=== PATIENT | male | born 1940 | race Caucasian/White ===

== ENCOUNTER 2019-12-27 07:28 | Outpatient (REF) | payer MEDICARE, SELFPAY ==
[2019-12-27 07:58] LABS: MANUAL DIFF FLAG NO
[2019-12-27 08:08] LABS: Basophils Percent Auto 0.3 % (0-2); Eosinophils Absolute Auto 0.3 X10*3/uL (0.0-0.4); Eosinophils Percent Auto 3.1 % (0-4); Hematocrit 38.4 % (42-52); Hemoglobin 12.8 g/dl (14.0-18.0); Imm Gran Abs Auto 0.04 X10*3/uL (0.00-0.03); Imm Gran Pct Auto 0.4 % (0.0-0.4); Lymphocytes Percent Auto 20.9 % (20-40); Mean Corpuscular HGB Conc 33.3 g/dl (31.0-36.0); Mean Corpuscular Hemoglobin 31.6 pg (27.0-33.0); Mean Corpuscular Volume 94.8 fL (80-98); Monocytes Absolute Auto 1.1 X10*3/uL (0.1-1.2); Monocytes Percent Auto 12.1 % (2-11); Neutrophils Percent Auto 63.2 % (45-73); Platelet Count 283 X10*3/uL (160-400); Red Blood Count 4.05 X10*6/uL (4.60-5.80); Red Cell Distribution Width 13.2 % (11.0-16.0); White Blood Count 9.4 X10*3/uL (4.8-10.8)
[2019-12-27 08:32] LABS: Alanine Aminotransferase 21 U/L (0-40); Albumin Level 4.5 g/dL (3.5-5.0); Alkaline Phosphatase 78 U/L (39-117); Anion Gap 11 (12-20); Aspartate Amino Transferase 18 U/L (5-37); Bilirubin Total 0.5 mg/dL (0.0-1.0); Blood Urea Nitrogen 19 mg/dL (9-16); Calcium 9.7 mg/dL (8.4-10.2); Carbon Dioxide 26 mmol/L (22-29); Chloride 106 mmol/L (96-108); Estimated Glomerular Filt Rate > 60; Glucose Fasting 99 mg/dL (60-99); Potassium 5.1 mmol/l (3.3-5.1); Sodium 138 mmol/L (135-145); Total Protein 6.8 g/dL (6.5-8.0)
== END 2019-12-27 07:29 | disposition home or self-care (01) ==
LOC: HO.LAB 07:28
PROVIDERS: PCP Internal Medicine; Visit Provider Internal Medicine
DX: I10 Essential (primary) hypertension (principal)
CPT/HCPCS: 36415; 80053; 85025

== ENCOUNTER 2020-01-10 07:59 | Outpatient (REF) | payer MEDICARE, SELFPAY ==
[2020-01-10 09:14] LABS: MANUAL DIFF FLAG NO
[2020-01-10 09:18] LABS: Basophils Percent Auto 0.3 % (0-2); Eosinophils Absolute Auto 0.3 X10*3/uL (0.0-0.4); Eosinophils Percent Auto 4.3 % (0-4); Hematocrit 37.3 % (42-52); Hemoglobin 12.7 g/dl (14.0-18.0); Imm Gran Abs Auto 0.02 X10*3/uL (0.00-0.03); Imm Gran Pct Auto 0.3 % (0.0-0.4); Lymphocytes Absolute Auto 1.5 X10*3/uL (1.2-4.9); Lymphocytes Percent Auto 24.1 % (20-40); Mean Corpuscular Hemoglobin 32.2 pg (27.0-33.0); Mean Corpuscular Volume 94.7 fL (80-98); Mean Platelet Volume 9.4 fL (9.4-12.4); Monocytes Absolute Auto 0.9 X10*3/uL (0.1-1.2); Monocytes Percent Auto 14.3 % (2-11); Neutrophils Absolute Auto 3.5 X10*3/uL (2.0-8.3); Neutrophils Percent Auto 56.7 % (45-73); Platelet Count 231 X10*3/uL (160-400); Red Blood Count 3.94 X10*6/uL (4.60-5.80); Red Cell Distribution Width 12.9 % (11.0-16.0); White Blood Count 6.1 X10*3/uL (4.8-10.8)
[2020-01-10 09:29] LABS: Estimated Average Glucose 160 mg/dL; Hemoglobin A1c % 7.2 %
[2020-01-10 09:53] LABS: Alanine Aminotransferase 18 U/L (0-40); Albumin Level 4.4 g/dL (3.5-5.0); Alkaline Phosphatase 69 U/L (39-117); Anion Gap 11 (12-20); Aspartate Amino Transferase 19 U/L (5-37); Bilirubin Total 0.6 mg/dL (0.0-1.0); Blood Urea Nitrogen 14 mg/dL (9-16); Calcium 9.4 mg/dL (8.4-10.2); Carbon Dioxide 25 mmol/L (22-29); Chloride 106 mmol/L (96-108); Estimated Glomerular Filt Rate > 60; Glucose Fasting 100 mg/dL (60-99); Potassium 4.5 mmol/l (3.3-5.1); Sodium 137 mmol/L (135-145); Total Protein 6.5 g/dL (6.5-8.0)
[2020-01-10 10:12] LABS: Creatinine Urine 88.57 mg/dL
[2020-01-10 10:18] LABS: Thyroid Stimulating Hormone 2.07 mIU/mL (0.32-4.0)
== END 2020-01-10 08:00 | disposition home or self-care (01) ==
LOC: HO.LAB 07:59
PROVIDERS: PCP Internal Medicine; Visit Provider Internal Medicine
DX: E11.51 Type 2 diabetes mellitus with diabetic peripheral angiopathy without gangrene (principal); E78.2 Mixed hyperlipidemia; I10 Essential (primary) hypertension; Z79.4 Long term (current) use of insulin
CPT/HCPCS: 36415; 80053; 82043; 83036; 84443; 85025

== ENCOUNTER 2020-01-21 03:35 | Emergency (ER) | payer MEDICARE, SELFPAY ==
[2020-01-21 03:39] VITALS: BP 103/61; BP 191/90; PULSE 70; PULSE 74; RESP 20; TEMP 36.8; O2SAT 97; BMI 27.7
[2020-01-21 03:49] LABS: Glucose, Whole Blood 109 mg/dL (60-115)
--- NOTE | 2020-01-21 04:06 | ED.RECABL ---
HPI - Recheck/Abnormal Lab/Rx General Chief Complaint: Recheck/Abnormal Lab/Rx Stated Complaint: LOW BS (49),ORAL SUGARS GIVEN (94) Time Seen by Provider: 01/21/20 04:05 History of Present Illness HPI narrative: Patient 79-year-old male with a history of diabetes. Normally on Lantus insulin 38 units twice a day. Also on sliding scale, patient was found to be agitated. Combative as noted by . EMS was called. EMS check sugar was 49. Given glucagon given glucose subsequently symptoms improved. On arrival patient has no complaints. Did not recall what happened. Patien claims he ate regular dinner. There has been no significant changes in his diet. Denies any coughing congestion upper respiratory symptoms. No diaphoresis. No chest pain. No systemic complaints. Related Data Home Medications Medication Instructions Recorded Confirmed amlodipine 1 tab PO DAILY 01/21/20 01/21/20 atorvastatin 1 tab PO DAILY 01/21/20 01/21/20 insulin glargine [Lantus U-100 57 unit SUBCUT BID 01/21/20 01/21/20 Insulin] insulin lispro [Humalog U-100 0 - 20 unit SUBCUT TID 01/21/20 01/21/20 Insulin] levothyroxine 125 mcg PO DAILY 01/21/20 01/21/20 metformin 2 tab PO DAILY 01/21/20 01/21/20 metoprolol tartrate 1 tab PO BID 01/21/20 01/21/20 rivaroxaban [Xarelto] 1 tab PO DAILY 01/21/20 01/21/20 spironolactone 1 tab PO DAILY 01/21/20 01/21/20 Allergies Allergy/AdvReac Type Severity Reaction Status Date / Time No Known Allergies Allergy Unverified 12/13/19 15:19 [No Known Allergies*] Review of Systems Review of Systems: Constitutional: No Weight loss, No Fever, No Chills, No Night Sweats, No Fatigue, No Malaise ENT/Mouth: No Hearing loss, No Ear Pain, No Nasal Congestion, No Sinus Pain, No Hoarseness, No sore throat, No Rhinorrhea, No Swallowing Difficulty Eyes: No Eye Pain, No Swelling, No Redness, No Foreign Body, No Discharge, No Vision Changes Cardiovascular: No Chest Pain, No SOB, No Dyspnea on Exertion, No Orthopnea, No Edema, No Palpitations Respiratory: No Cough, No Sputum, No Wheezing, No Smoke Exposure, No Dyspnea Gastrointestinal: No Nausea, No Vomiting, No Diarrhea, No Constipation, No abdominal Pain, No Hematochezia, No Melena Genitourinary: no irregular bleeding, No Dysuria, No Urinary Frequency, No Hematuria, No Urinary Incontinence, No Urgency, No Flank Pain, No Urinary Flow Changes, No Hesitancy Musculoskeletal: No joint pain, No Myalgias, No Joint Swelling Skin: No Skin Lesions, No rash Neuro: No Weakness, No Numbness, No Paresthesias, No Loss of Consciousness, No Dizziness, No Headache Psych: No Anxiety/Panic, No Depression, No SI/HI/AH/VH, No Social Issues, Heme/Lymph: No Bruising, No Bleeding,No Lymphadenopathy Endocrine: No Polyuria, No Polydipsia, No Temperature Intolerance PMF Past Medical History Attestation statement: The following information was validated with the patient. Medical History DM2 (diabetes mellitus, type 2) HTN (hypertension) Hypothyroid Social History Social History Alcohol intake: never Smoking Status: Current some day smoker Smoked in Last 30 Days: Yes Use of substances other than those prescribed or required for medical reasons: No Advance Directives: No Advance Directives Information Provided: Yes Advance Directives Date on File: 01/10/20 Physical Exam Vital Signs: Vital Signs: Vital Signs Temp Pulse Resp BP Pulse Ox 01/21/20 06:00 82 18 159/63 H 96 01/21/20 03:39 98.2 F 74 20 103/61 97 Body Mass Index 27.7 Appearance: Alert. Oriented X3. No acute distress. Eyes: Pupils equal, round and reactive to light. ENT: Pharynx normal. Neck: Normal inspection. Neck supple. No lymph nodes noted. No crepitus CVS: Normal heart rate and rhythm. Pulses normal. Normal S1 and S2 Respiratory: No respiratory distress. Breath sounds normal. No Wheezing. No rales Abdomen: Soft and nontender. No rigidity. No distention. good BS x4 Skin: Skin warm and dry. Normal skin color. Normal skin turgor. Extremities: No lower extremity edema. Neurovascular intact to all extremities. No Lacerations. No Rash Neuro: Oriented X 3. No motor deficit. No sensory deficit. Moving all extermities. No slurred speech MDM - Recheck/Abnormal Lab/Rx MDM Narrative Medical decision making narrative: Patient exam is normal. No distress. Baseline on Lantus insulin 38 units twice a day. Will elect to cut down the amount of insulin to 30 units twice a day. Will have patient closely follow-up. Baseline electrolyte will be drawn. Will have patient check his sugars very carefully the next few days and have close follow-up on an outpatient basis. patient's white count was elevated. Question etiology chest x-ray showed no focal infiltrate. Urine is negative for infection. Patient awake alert has no fever. Sugars maintained after 4 hours of monitoring. Patient is to be discharged home Lab Data Result diagrams: 01/21/20 06:06 01/21/20 04:46 Labs: Lab Results 01/21/20 01/21/20 01/21/20 Range/Units 03:45 04:46 04:46 WBC 18.3 H (4.8-10.8) X10*3/uL RBC 3.88 L (4.60-5.80) X10*6/uL Hgb 12.2 L (14.0-18.0) g/dl Hct 36.6 L (42-52) % MCV 94.3 (80-98) fL MCH 31.4 (27.0-33.0) pg MCHC 33.3 (31.0-36.0) g/dl RDW 12.7 (11.0-16.0) % Plt Count 227 (160-400) X10*3/uL MPV 8.9 L (9.4-12.4) fL Immature Gran % (Auto) 0.5 H (0.0-0.4) % Neut % (Auto) 84.4 H (45-73) % Lymph % (Auto) 6.1 L (20-40) % [place] % (Auto) 8.3 (2-11) % Eos % (Auto) 0.5 (0-4) % Baso % (Auto) 0.2 (0-2) % Lymph # (Auto) 1.1 L (1.2-4.9) X10*3/uL [place] # (Auto) 1.5 H (0.1-1.2) X10*3/uL Eos # (Auto) 0.1 (0.0-0.4) X10*3/uL Baso # (Auto) 0.0 (0.0-0.2) X10*3/uL Abs Immat Gran (auto) 0.10 H (0.00-0.03) X10*3/uL Absolute Neuts (auto) 15.4 H (2.0-8.3) X10*3/uL Absolute Nucleated RBC 0.000 (0.0-0.012) X10*3/uL Nucleated RBC % (auto) 0.0 (0.0-0.2) /100WBC Smear Tech's Comments VERIFIED Sodium 138 (135-145) mmol/L Potassium 4.7 (3.3-5.1) mmol/l Chloride 104 (96-108) mmol/L Carbon Dioxide 24 (22-29) mmol/L Anion Gap 15 (12-20) BUN 16 (9-16) mg/dL Creatinine 0.88 (0.5-1.4) mg/dL Estim Creat Clear Calc 73.4 Estimated GFR > 60 POC Glucose 109 (60-115) mg/dL Random Glucose 256 H (60-115) mg/dL Calcium 8.6 (8.4-10.2) mg/dL Urine Color Urine Appearance Urine pH (5.0-8.0) Ur Specific [place] (1.005-1.025) Urine Protein (NEG-TRACE) MG/DL Urine Glucose (UA) (NEG) MG/DL Urine Ketones (NEG) MG/DL Urine Blood (NEG) Urine Nitrite (NEG) Ur Leukocyte Esterase (NEG) Urine RBC (0) /HPF Urine WBC (0-4) /HPF Ur Squamous Epith Cells /LPF Urine Bacteria /LPF Urine Mucus /LPF 01/21/20 01/21/20 01/21/20 Range/Units 05:59 06:06 06:06 WBC 14.8 H (4.8-10.8) X10*3/uL RBC 3.91 L (4.60-5.80) X10*6/uL Hgb 12.4 L (14.0-18.0) g/dl Hct 36.4 L (42-52) % MCV 93.1 (80-98) fL MCH 31.7 (27.0-33.0) pg MCHC 34.1 (31.0-36.0) g/dl RDW 12.6 (11.0-16.0) % Plt Count 237 (160-400) X10*3/uL MPV 9.2 L (9.4-12.4) fL Immature Gran % (Auto) 1.3 H (0.0-0.4) % Neut % (Auto) 82.5 H (45-73) % Lymph % (Auto) 9.3 L (20-40) % [place] % (Auto) 6.4 (2-11) % Eos % (Auto) 0.3 (0-4) % Baso % (Auto) 0.2 (0-2) % Lymph # (Auto) 1.4 (1.2-4.9) X10*3/uL [place] # (Auto) 0.9 (0.1-1.2) X10*3/uL Eos # (Auto) 0.0 (0.0-0.4) X10*3/uL Baso # (Auto) 0.0 (0.0-0.2) X10*3/uL Abs Immat Gran (auto) 0.19 H (0.00-0.03) X10*3/uL Absolute Neuts (auto) 12.2 H (2.0-8.3) X10*3/uL Absolute Nucleated RBC 0.000 (0.0-0.012) X10*3/uL Nucleated RBC % (auto) 0.0 (0.0-0.2) /100WBC Smear Tech's Comments Sodium (135-145) mmol/L Potassium (3.3-5.1) mmol/l Chloride (96-108) mmol/L Carbon Dioxide (22-29) mmol/L Anion Gap (12-20) BUN (9-16) mg/dL Creatinine (0.5-1.4) mg/dL Estim Creat Clear Calc Estimated GFR POC Glucose 276 H (60-115) mg/dL Random Glucose (60-115) mg/dL Calcium (8.4-10.2) mg/dL Urine Color YELLOW Urine Appearance CLEAR Urine pH 5.5 (5.0-8.0) Ur Specific [place] 1.020 (1.005-1.025) Urine Protein NEG (NEG-TRACE) MG/DL Urine Glucose (UA) >=1000 H (NEG) MG/DL Urine Ketones NEG (NEG) MG/DL Urine Blood TRACE (NEG) Urine Nitrite NEG (NEG) Ur Leukocyte Esterase NEG (NEG) Urine RBC 0 (0) /HPF Urine WBC 0-2 (0-4) /HPF Ur Squamous Epith Cells NONE /LPF Urine Bacteria NONE /LPF Urine Mucus 1+ /LPF Discharge Plan Discharge Clinical Impression: Hypoglycemia associated with diabetes Patient Disposition: Home, Self-Care Instructions: Hypoglycemia in a Person with Diabetes (ED) Additional Instructions: please eat regular meals. Please use 30 units of Lantus insulin twice a day Instead of 38 units twice a day. Please closely follow-up with your doctor on an outpatient basis. Please check your sugars 3 times a day in the next day 3 days. Prescriptions: No Action atorvastatin 40 mg tablet 1 tab PO DAILY RF: 0 Lantus U-100 Insulin 100 unit/mL solution 57 unit subcut BID RF: 0 spironolactone 25 mg tablet 1 tab PO DAILY RF: 0 amlodipine 10 mg tablet 1 tab PO DAILY RF: 0 levothyroxine 125 mcg tablet 125 mcg PO DAILY RF: 0 insulin lispro [Humalog U-100 Insulin] 100 unit/mL solution 0 - 20 unit subcut TID RF: 0 metformin 500 mg tablet extended release 24 hr 2 tab PO DAILY RF: 0 metoprolol tartrate 25 mg tablet 1 tab PO BID RF: 0 Xarelto 20 mg tablet 1 tab PO DAILY RF: 0 Referrals: Waylon Diaz MD [Primary Care Provider] - 2 days
[2020-01-21 04:50] LABS: Basophils Percent Auto 0.2 % (0-2); Eosinophils Absolute Auto 0.1 X10*3/uL (0.0-0.4); Eosinophils Percent Auto 0.5 % (0-4); Hematocrit 36.6 % (42-52); Hemoglobin 12.2 g/dl (14.0-18.0); Imm Gran Pct Auto 0.5 % (0.0-0.4); Lymphocytes Absolute Auto 1.1 X10*3/uL (1.2-4.9); Lymphocytes Percent Auto 6.1 % (20-40); MANUAL DIFF FLAG SCAN; Mean Corpuscular HGB Conc 33.3 g/dl (31.0-36.0); Mean Corpuscular Hemoglobin 31.4 pg (27.0-33.0); Mean Corpuscular Volume 94.3 fL (80-98); Mean Platelet Volume 8.9 fL (9.4-12.4); Monocytes Absolute Auto 1.5 X10*3/uL (0.1-1.2); Monocytes Percent Auto 8.3 % (2-11); Neutrophils Absolute Auto 15.4 X10*3/uL (2.0-8.3); Neutrophils Percent Auto 84.4 % (45-73); Platelet Count 227 X10*3/uL (160-400); Red Blood Count 3.88 X10*6/uL (4.60-5.80); Red Cell Distribution Width 12.7 % (11.0-16.0); SCAN SMEAR FLAG 1; White Blood Count 18.3 X10*3/uL (4.8-10.8)
[2020-01-21 05:09] LABS: SLIDE REVIEW VERIFIED
[2020-01-21 05:24] LABS: Anion Gap 15 (12-20); Blood Urea Nitrogen 16 mg/dL (9-16); Calcium 8.6 mg/dL (8.4-10.2); Carbon Dioxide 24 mmol/L (22-29); Chloride 104 mmol/L (96-108); Creatinine Clr Calc Pharmacy 73.4; Estimated Glomerular Filt Rate > 60; Glucose Random 256 mg/dL (60-115); Potassium 4.7 mmol/l (3.3-5.1); Sodium 138 mmol/L (135-145)
--- NOTE | 2020-01-21 05:42 | XR_ITS ---
EXAMINATION: XR CHEST CLINICAL INFORMATION: Cough COMPARISON: 02/08/2017 TECHNIQUE: Frontal view of the chest was obtained. FINDINGS: Lung volumes are symmetric. No focal consolidation is seen. There is suspected central peribronchial thickening. No evidence of pneumothorax, pleural effusion, or pulmonary edema. Cardiac size is within normal limits. Calcification is present at the aortic arch. Degenerative changes are noted in the spine. XR/XR chest 1V IMPRESSION: No focal consolidation. Central peribronchial thickening may reflect acute or chronic bronchitis.
[2020-01-21 06:00] VITALS: BP 159/63; PULSE 82; RESP 18; O2SAT 96
[2020-01-21 06:05] LABS: Glucose, Whole Blood 276 mg/dL (60-115)
[2020-01-21 06:37] LABS: MANUAL DIFF FLAG NO
[2020-01-21 06:42] LABS: Glucose Urine UA >=1000 MG/DL (NEG); Leukocyte Esterase Urine NEG (NEG); Nitrite Urine NEG (NEG); PH 5.5 (5.0-8.0); Urine Blood TRACE (NEG); Urine Ketones NEG (NEG); Urine Protein NEG (NEG-TRACE)
[2020-01-21 06:43] LABS: Appearance Urine CLEAR; Basophils Percent Auto 0.2 % (0-2); Color Urine YELLOW; Eosinophils Percent Auto 0.3 % (0-4); Hematocrit 36.4 % (42-52); Hemoglobin 12.4 g/dl (14.0-18.0); Imm Gran Abs Auto 0.19 X10*3/uL (0.00-0.03); Imm Gran Pct Auto 1.3 % (0.0-0.4); Lymphocytes Absolute Auto 1.4 X10*3/uL (1.2-4.9); Lymphocytes Percent Auto 9.3 % (20-40); Mean Corpuscular HGB Conc 34.1 g/dl (31.0-36.0); Mean Corpuscular Hemoglobin 31.7 pg (27.0-33.0); Mean Corpuscular Volume 93.1 fL (80-98); Mean Platelet Volume 9.2 fL (9.4-12.4); Monocytes Absolute Auto 0.9 X10*3/uL (0.1-1.2); Monocytes Percent Auto 6.4 % (2-11); Neutrophils Absolute Auto 12.2 X10*3/uL (2.0-8.3); Neutrophils Percent Auto 82.5 % (45-73); Platelet Count 237 X10*3/uL (160-400); Red Blood Count 3.91 X10*6/uL (4.60-5.80); Red Cell Distribution Width 12.6 % (11.0-16.0); White Blood Count 14.8 X10*3/uL (4.8-10.8)
[2020-01-21 06:49] LABS: Mucus Urine 1+ /LPF; RBC Urine 0 /HPF (0); WBC Urine 0-2 /HPF (0-4)
== END 2020-01-21 07:56 | disposition home or self-care (01) ==
PROVIDERS: Emergency Provider Emergency Medicine Emergency Medical Services; PCP Internal Medicine
DX: E11.649 Type 2 diabetes mellitus with hypoglycemia without coma (principal); I10 Essential (primary) hypertension; R79.89 Other specified abnormal findings of blood chemistry; Z79.4 Long term (current) use of insulin; Z79.899 Other long term (current) drug therapy; F17.200 Nicotine dependence, unspecified, uncomplicated; Z71.6 Tobacco abuse counseling
CPT/HCPCS: 36415; 71045; 80048; 81001; 82947; 85025; 99283; 99284

== ENCOUNTER → 2020-05-02 12:41 | Outpatient (REF) | payer MEDICARE, SELFPAY ==
--- NOTE | 2020-05-02 12:45 | CA_ITS ---
Transthoracic Echocardiogram Patient (Last, First, Middle): Elan Patton, Gender: Male Date of : 1940 Age: 79 Procedure Date: 05/02/2020 Procedure Type: Transthoracic Echocardiogram Location: OP Height: 182.88 cm Weight: 103.42 kg BSA: 2.25 m2 Heart Rate: bpm BP: 120 / 50 mmHg Pillowcase Folder: JOSE Referring MD: John No MD Symptoms: PAF, HTN, TYPE 2 DIABETES MELLITUS WITHOUT INSULIN. Study Quality: Fair ECG Rhythm: Sinus Conclusions: - The left ventricular systolic function is normal. The visually estimated ejection fraction is between 55-60%. - Mildly increased right ventricular cavity size. - Aortic valve calcification without any significant stenosis. Findings Left Ventricle Normal left ventricular cavity size. There is normal left ventricular wall thickness. The left ventricular systolic function is normal. The visually estimated ejection fraction is between 55-60%. There is no evidence of regional wall motion abnormalities. E/E prime ratio is between 8 and 15 consistent with indeterminate filling pressures. Evidence suggests grade I (mild) diastolic dysfunction. Right Ventricle Mildly increased right ventricular cavity size. There is normal right ventricular systolic function. Atria Both atria are normal in size. Aortic Valve There is moderate calcification of the aortic valve. The peak aortic velocity is 2.00 m/s with a calculated peak gradient of 16 mmHg. There is no aortic valve regurgitation. No significant aortic stenosis. Mitral Valve The mitral valve appears normal. There is trace mitral valve regurgitation. There is no mitral valve stenosis. Pulmonic Valve The pulmonic valve was not well visualized. Tricuspid Valve Normal tricuspid valve structure. There is trace tricuspid valve regurgitation. The pulmonary artery systolic pressure is normal. Great Vessels The aortic annulus, sinuses of valsalva, and asc aorta are normal in size. Venous The inferior vena cava is normal in size and collapses greater than 50% with inspiration. Pericardium/Pleural There is no evidence of pericardial effusion. Prior Study Comparison No significant change compared to prior study dated: 05/10/2018. Measurements M-Mode Liner Measurements Normals - Women/Men AOV Cusps: 1.60 1.5-2.6 cm/m2 2D Linear Measurements IVSd: 1.00 0.6-0.9/0.6-1.0 cm LVIDd: 5.23 3.9-5.3/4.2-5.9 cm LVIDd Index: 2.32 2.4-3.2/2.2-3.1 cm/m2 LVIDs: 2.16 2.0-3.6 cm LVPWd: 0.96 0.7-1.1 cm Ao Root: 3.30 2.1-3.5 cm LA Diam: 3.40 2.7-3.8/3.0-4.0 cm LAIDs Index: 1.51 1.5-2.3 cm/m2 LV Mass: 237.30 67-162/88-224 g LV Mass Index: 105.47 43-95/49-115 g/m2 LVOT Diam: 2.30 3.0+(-)1.3 cm 2D Systolic Function EF 4C: 56.90 >55% EF 2C: 57.10 >55% EF BiP: 58.30 >55% Mitral Valve MV Pk E: 0.73 MV PK A: 1.02 MV Decel Time: 250.00 E/A: 0.70 E'Lateral: 8.59 E'Medial: 5.11 E/E' Med: 14.20 E/E' Lat: 8.50 PHT: 73.00 MVA PHT: 3.01 Decel [place]: 2.91 Aortic Valve AoV Pk Anthony: 2.00 AoV Pk Grad: 16.00 LVOT LVOT Pk Anthony: 0.97 LVOT Mn Anthony: 0.70 LVOT VTI: 0.20 LVOT Pk Grad: 4.00 LVOT Mn Grad: 2.00 LVOT Diam: 2.30 LVOT Area: 4.15 Diastolic Function MV Pk E: 0.73 MV Pk A: 1.02 E/A: 0.70 E'Medial: 5.11 E/E' Med: 14.20 E' Laterial: 8.59 E/E' Lat: 8.50 Tricuspid Valve TR Pk Anthony: 2.29 TR Pk Grad: 21.00 RA Press: 3.00 RVSP: 24.00 Great Vessels Aorta Ao Root-2D: 3.30 2.0-3.7 cm Ao Asc: 3.40 2.1-3.4 cm Pulmonary Valve PV Pk Anthony: 1.35 Peak PV Grad: 7.00 Updated in Other Vendor System with Status of Final Lars Perla MD electronically signed on 05/03/2020 4:07:46 PM with status of Final
== END ==
LOC: HO.CARD 12:41
PROVIDERS: Visit Provider Internal Medicine Cardiovascular Disease
DX: I48.92 Unspecified atrial flutter (principal); I10 Essential (primary) hypertension; E11.9 Type 2 diabetes mellitus without complications
CPT/HCPCS: 93306

== ENCOUNTER → 2020-05-22 12:12 | Outpatient (BNVA) | payer MEDICARE, SELFPAY | PROVIDERS: PCP Internal Medicine; Visit Provider Internal Medicine Cardiovascular Disease | DX: I48.92 Unspecified atrial flutter (principal); I10 Essential (primary) hypertension | CPT/HCPCS: 93005; 99212 ==

== ENCOUNTER 2021-03-06 14:02 | Outpatient (REF) | payer MEDICARE, SELFPAY ==
[2021-03-06 15:18] LABS: Appearance Urine CLEAR; Color Urine YELLOW; Glucose Urine UA >=1000 MG/DL (NEG); Leukocyte Esterase Urine NEG (NEG); Nitrite Urine NEG (NEG); Urine Blood NEG (NEG); Urine Ketones NEG (NEG); Urine Protein NEG (NEG-TRACE)
[2021-03-06 15:37] LABS: Renal Epithelial Cells Urine TRACE /LPF; Squamous Epithelial Cell Urine TRACE /LPF
[2021-03-06 15:38] LABS: RBC Urine 0-2 /HPF (0); WBC Urine 0 /HPF (0-4)
== END 2021-03-06 14:03 | disposition home or self-care (01) ==
LOC: HO.LAB 14:02
PROVIDERS: PCP Internal Medicine; Visit Provider Internal Medicine
DX: R35.0 Frequency of micturition (principal)
CPT/HCPCS: 81001; 87086

== ENCOUNTER 2021-05-05 09:07 | Outpatient (REF) | payer MEDICARE, SELFPAY ==
[2021-05-05 11:26] LABS: Hematocrit 35.7 % (42.0-52.0); Hemoglobin 12.1 g/dl (14.0-18.0); Mean Corpuscular HGB Conc 33.9 g/dl (31.0-36.0); Mean Corpuscular Hemoglobin 31.1 pg (27.0-33.0); Mean Corpuscular Volume 91.8 fL (80.0-98.0); Mean Platelet Volume 9.5 fL (9.4-12.4); Platelet Count 238 X10*3/uL (160-400); Red Blood Count 3.89 X10*6/uL (4.60-5.80); Red Cell Distribution Width 13.3 % (11.0-16.0); White Blood Count 7.5 X10*3/uL (4.8-10.8)
[2021-05-05 11:57] LABS: Anion Gap 12 (12-20); Blood Urea Nitrogen 15 mg/dL (9-16); Calcium 9.7 mg/dL (8.4-10.2); Carbon Dioxide 25 mmol/L (22-29); Chloride 105 mmol/L (96-108); Estimated Glomerular Filt Rate > 60; Glucose Random 162 mg/dL (60-115); Sodium 137 mmol/L (135-145)
== END 2021-05-05 09:08 | disposition home or self-care (01) ==
LOC: HO.LAB 09:07
PROVIDERS: PCP Internal Medicine; Referring Provider Internal Medicine; Visit Provider Internal Medicine Cardiovascular Disease
DX: I48.92 Unspecified atrial flutter (principal); I10 Essential (primary) hypertension
CPT/HCPCS: 36415; 80048; 85027; 93005; 99212

== ENCOUNTER → 2022-04-21 09:05 | Outpatient (REF) | payer MEDICARE, SELFPAY ==
--- NOTE | 2022-04-21 09:08 | CA_ITS ---
Transthoracic Echocardiogram Patient (Last, First, Middle): Elan Patton, Gender: Male Date of : 1940 Age: 81 Procedure Date: 04/21/2022 Procedure Type: Transthoracic Echocardiogram Location: OP Height: 172.72 cm Weight: 92.08 kg BSA: 2.06 m2 Heart Rate: bpm BP: 145 / 50 mmHg Aids Social Worker: TO Referring MD: John No MD Symptoms: I48.92 - Unspecified atrial flutter Study Quality: Fair ECG Rhythm: Sinus Conclusions: - The left ventricular systolic function is normal. The calculated ejection fraction is 57% by biplane method. - There is mildly increased left ventricular wall thickness. - There is moderate calcification of the aortic valve. No significant aortic stenosis. Findings Left Ventricle Normal left ventricular cavity size. There is mildly increased left ventricular wall thickness. The left ventricular systolic function is normal. The calculated ejection fraction is 57% by biplane method. There is no evidence of regional wall motion abnormalities. E/E prime ratio is between 8 and 15 consistent with indeterminate filling pressures. Evidence suggests grade I (mild) diastolic dysfunction. Right Ventricle Mildly increased right ventricular cavity size. There is normal right ventricular systolic function. Atria Mild biatrial enlargement. Aortic Valve There is moderate calcification of the aortic valve. There is trace (trivial) aortic valve regurgitation. No significant aortic stenosis. Mitral Valve The mitral valve appears normal. There is trace mitral valve regurgitation. There is no mitral valve stenosis. Pulmonic Valve There is trace pulmonic valve regurgitation. Tricuspid Valve Normal tricuspid valve structure. There is mild tricuspid valve regurgitation. Top normal RVSP. Great Vessels The asc aorta is normal in size. Venous The inferior vena cava is normal in size and collapses greater than 50% with inspiration. Pericardium/Pleural There is no evidence of pericardial effusion. Prior Study Comparison No significant change compared to prior study dated: 05/02/2020. Measurements 2D Linear Measurements IVSd: 1.14 0.6-0.9/0.6-1.0 cm LVIDd: 4.64 3.9-5.3/4.2-5.9 cm LVIDd Index: 2.25 2.4-3.2/2.2-3.1 cm/m2 LVIDs: 2.83 2.0-3.6 cm LVPWd: 1.03 0.7-1.1 cm LA Diam: 4.10 2.7-3.8/3.0-4.0 cm LAIDs Index: 1.99 1.5-2.3 cm/m2 LV Mass: 224.56 67-162/88-224 g LV Mass Index: 109.01 43-95/49-115 g/m2 LVOT Diam: 2.20 3.0+(-)1.3 cm 2D Systolic Function EF 4C: 55.00 >55% EF 2C: 59.50 >55% EF BiP: 56.80 >55% Mitral Valve MV Pk E: 0.85 MV PK A: 0.94 MV Decel Time: 305.00 E/A: 0.90 E'Lateral: 7.94 E'Medial: 5.44 E/E' Med: 15.60 E/E' Lat: 10.70 PHT: 89.00 MVA PHT: 2.47 Decel [place]: 2.78 Aortic Valve AoV Pk Anthony: 2.04 AoV Mn Anthony: 1.39 AoV VTI: 0.48 AoV Pk Grad: 17.00 Aov Mn Grad: 9.00 DUSTIN Cont.VTI: 1.93 LVOT LVOT Pk Anthony: 1.04 LVOT Mn Anthony: 0.67 LVOT VTI: 0.24 LVOT Pk Grad: 4.00 LVOT Mn Grad: 2.00 LVOT Diam: 2.20 LVOT Area: 3.80 Diastolic Function MV Pk E: 0.85 MV Pk A: 0.94 E/A: 0.90 E'Medial: 5.44 E/E' Med: 15.60 E' Laterial: 7.94 E/E' Lat: 10.70 Right Ventricle TAPSE (mm): 26.10 TVS' Anthony: 14.50 Tricuspid Valve TR Pk Anthony: 2.82 TR Pk Grad: 32.00 RA Press: 3.00 RVSP: 35.00 Great Vessels Aorta Sinus of Valsalva: 3.52 2.0-3.[address] [place]: 3.23 1.7-3.4 cm Ao Asc: 3.40 2.1-3.4 cm Updated in Other Vendor System with Status of Final Lars Perla MD electronically signed on 04/22/2022 1:25:13 PM with status of Final
== END ==
LOC: HO.CARD 09:05
PROVIDERS: PCP Internal Medicine; Visit Provider Internal Medicine Cardiovascular Disease
DX: I48.92 Unspecified atrial flutter (principal)
CPT/HCPCS: 93306

== ENCOUNTER → 2022-05-10 09:16 | Outpatient (BNVA) | payer MEDICARE, SELFPAY | PROVIDERS: PCP Internal Medicine; Referring Provider Internal Medicine; Visit Provider Internal Medicine Cardiovascular Disease | DX: I48.92 Unspecified atrial flutter (principal); I10 Essential (primary) hypertension | CPT/HCPCS: 93005; 99212 ==

== ENCOUNTER 2023-05-30 12:48 | Outpatient (AMB) | payer MEDICARE, SELFPAY ==
--- NOTE | 2023-05-30 12:50 | A.OFFVIS_ITS ---
Intake Vital Signs 05/30/23 12:53 Height 6 ft Weight 199 lb 11.821 oz BMI 27.1 BP 112/68 Blood Pressure Location Lt brachial Position Sitting Pulse 80 Pulse Source Monitor Intake Visit Reasons: 1 year followup w/ekg dx: paf Intake Note: 1 year follow up with EKG Allergies No Known Allergies [No Known Allergies*] Allergy (Verified 05/30/23 13:01) HPI HPI Comments History of Present Illness Details Elan comes for follow-up. He has been doing pretty well from cardiac perspective. Denies any prolonged palpitation or lightheadedness. Denies any exertional chest pain or shortness of breath. No bleeding issues or neurologic events. No recent blood work available for me to review. He remains active and still works as a cook school cafeteria but has been recently suffering from some plantar fasciitis on his left foot. His limits his activity level. Otherwise no cardiac symptoms. [facility] Medical History Paroxysmal atrial flutter DM2 (diabetes mellitus, type 2) Hypothyroid HTN (hypertension) Social History (Updated 05/30/23 @ 13:04 by Barby Blum) Alcohol intake: never Tobacco use type: Cigar Advance Directives Date on File: 01/10/20 Review of Systems Const Denies chills, Denies fatigue, Denies fever(s), Denies frequent falls, Denies weakness, Denies weight gain and Denies weight loss ENT Denies dizziness Card Denies chest pain, Denies leg edema, Denies lightheadedness, Denies palpitations, Denies dyspnea, Denies dyspnea on exertion, Denies orthopnea and Denies other (loss of consciousness) Resp Denies cough, Denies dyspnea and Denies dyspnea on exertion GI Denies hematochezia and Denies change in stool character Musc Denies abnormal gait, Denies muscle weakness, Denies numbness, Denies radiating pain into limb and Denies tingling Neuro Denies abnormal gait, Denies dizziness, Denies frequent falls, Denies numbness, Denies tingling and Denies weakness Endo Denies fatigue and Denies palpitations Physical Exam Vital Signs: Last Vital Signs Pulse 80 05/30/23 12:53 BP 112/68 05/30/23 12:53 BMI result Body Mass Index 27.1 Const General: cooperative, comfortable, no acute distress, alert and awake Nutritional Appearance: overweight Orientation/consciousness: patient oriented x3 Limitations: no limitations Neck Neck: Yes trachea midline, Yes supple and Yes no JVD Resp Effort & Inspection: normal respiratory effort Auscultation: clear to auscultation bilaterally Cardio Jugular venous distension: no JVD Palpation: normal PMI Rate: regular rate Rhythm: abnormal rhythm with ectopic beats Heart sounds: S1 normal heart sound present, S2 normal heart sound present and Murmur heart sound present systolic early GI Auscultation: normal bowel sounds Skin General skin exam: no rashes or lesions noted Neuro General: patient oriented x3 and no focal motor deficits Extrem General: Yes no clubbing, cyanosis or edema Psych Appearance: grossly normal Office Procedures EKG Details: EKG shows normal sinus rhythm with PACs with incomplete right bundle-branch block 75185-[id number], Complete Assessment & Plan Assessment & Plan (1) Paroxysmal atrial flutter: Code(s): I48.92 - Unspecified atrial flutter Plan: Paroxysmal atrial flutter in this elderly gentleman without any new symptoms or signs of recurrent atrial flutter. Remaining in sinus rhythm. Will continue pursue rhythm control approach. Continue full oral anticoagulation, currently on Xarelto 20 mg daily. Semi annual renal function test needs to be pursued. (2) HTN (hypertension): Code(s): I10 - Essential (primary) hypertension Plan: Hypertension which is currently well optimized advised to monitor blood pressure at home maintain a log. Goal blood pressure less than 130/84. Also continue manage aggressive diabetes with goal hemoglobin A1c less than 7% being pursue through office. Low-salt diet was discussed. Encouraged to maintain activity level as tolerated. Advised to call me with any exertional symptoms. Will follow up in the clinic in 1 year's time, sooner p.r.n.. Thank you for allowing me to partake in his care Coding Level of Care Code Est Pt Level 4 (57289) Diagnoses Paroxysmal atrial flutter I48.92 HTN (hypertension) I10 CPT Codes EKG - CPT: 93091-[id number], Complete ([id number])
[2023-05-30 12:53] VITALS: BP 112/68; PULSE 80; BMI 27.1
== END 2023-05-30 13:17 | disposition home or self-care (01) ==
PROVIDERS: PCP Internal Medicine; Visit Provider Internal Medicine Cardiovascular Disease
DX: I48.92 Unspecified atrial flutter (principal); I10 Essential (primary) hypertension
CPT/HCPCS: 93010; 99214

== ENCOUNTER → 2023-05-30 12:48 | Outpatient (BNVA) | payer MEDICARE, SELFPAY | PROVIDERS: PCP Internal Medicine; Visit Provider Internal Medicine Cardiovascular Disease | DX: I48.92 Unspecified atrial flutter (principal); I10 Essential (primary) hypertension | CPT/HCPCS: 93005; 99212 ==

== ENCOUNTER → 2024-04-21 15:21 | Outpatient (BNV) | payer MEDICARE, SELFPAY | PROVIDERS: Emergency Provider Emergency Medicine Emergency Medical Services; PCP Internal Medicine; Visit Provider Radiology Diagnostic Radiology | DX: K31.89 Other diseases of stomach and duodenum (principal); K56.41 Fecal impaction; R63.4 Abnormal weight loss; S19.9XXA Unspecified injury of neck, initial encounter; S09.90XA Unspecified injury of head, initial encounter; R05.9 Cough, unspecified | CPT/HCPCS: 70450; 71045; 72125 ==

== ENCOUNTER → 2024-04-21 15:21 | Outpatient (BNV) | payer MEDICARE, SELFPAY | PROVIDERS: Admitting Provider Physician Assistant; Emergency Provider Emergency Medicine Emergency Medical Services; PCP Internal Medicine; Visit Provider Internal Medicine Cardiovascular Disease | DX: R41.82 Altered mental status, unspecified (principal) | CPT/HCPCS: 93010 ==

== ENCOUNTER 2024-04-21 21:39 | Outpatient (BNV) | payer MEDICARE, SELFPAY | END 2024-04-23 07:00 | PROVIDERS: Admitting Provider Physician Assistant; Emergency Provider Emergency Medicine Emergency Medical Services; PCP Internal Medicine; Visit Provider Internal Medicine | DX: I35.2 Nonrheumatic aortic (valve) stenosis with insufficiency (principal); I35.8 Other nonrheumatic aortic valve disorders; I34.81 Nonrheumatic mitral (valve) annulus calcification; I42.2 Other hypertrophic cardiomyopathy | CPT/HCPCS: 93306 ==

== ENCOUNTER → 2024-04-21 21:39 | Outpatient (BNV) | payer MEDICARE, SELFPAY | PROVIDERS: Admitting Provider Physician Assistant; Emergency Provider Emergency Medicine Emergency Medical Services; PCP Internal Medicine; Visit Provider Physician Assistant | DX: R63.4 Abnormal weight loss (principal); I95.1 Orthostatic hypotension | CPT/HCPCS: 99232; 99239 ==

== ENCOUNTER 2024-06-07 09:26 | Outpatient (AMB) | payer MEDICARE, SELFPAY ==
--- NOTE | 2024-06-07 09:33 | A.OFFVIS_ITS ---
Vital Signs 06/07/24 09:34 Height 5 ft 9 in Weight 189 lb 9.561 oz BMI 28.0 BP 110/60 Blood Pressure Location Lt brachial Position Sitting Pulse 62 Intake Visit Reasons: 1 yr f/up Intake Note: 1 year follow-up with ekg feeling good Manager Language Required: No Allergies No Known Allergies [No Known Allergies*] Allergy (Verified 04/21/24 15:24) Medication List - Last Reconciled 06/07/24 by John No MD aspirin 81 mg PO DAILY atorvastatin 40 mg PO DAILY insulin glargine (Lantus U-100 Insulin) 15 units (0.15 mL) subcut BID insulin lispro (Humalog U-100 Insulin) See Protocol units subcut TIDAC levothyroxine 137 mcg PO DAILY@0600 metformin ER 2 tabs PO BEDTIME metoprolol tartrate 25 mg PO DAILY omeprazole 40 mg PO DAILY@0630 rivaroxaban (Xarelto) 20 mg PO DAILY@1700 HPI Comments Details: Elan comes for follow-up after 1 year. Overall from cardiac perspective he has not had any significant episodes of atrial fibrillation atrial flutter with no prolonged palpitation irregular heartbeat. He was admitted in March with what appears to be orthostatic hypotension probably related to dehydration and medications. Lot of his medications were stopped in his orthostatic blood pressure improved with IV fluids as well. Since then he has not had any episo onur of lightheadedness or syncope. He denies any chest pain. No shortness of breath orthopnea, PND. No major bleeding issues or neurologic events. [facility] Medical History Anemia Unexplained weight loss Paroxysmal atrial flutter DM2 (diabetes mellitus, type 2) Hypothyroid HTN (hypertension) Social History Household Members: Spouse Housing: Apartment Do you presently have visiting nurse or other home services: No Alcohol intake: never Patient Tobacco Use Status: Current someday Tobacco user Tobacco use type: Cigar Advance Directives Date on File: 01/10/20 service: No Review of Systems Const Denies chills, Denies fatigue, Denies fever(s), Denies frequent falls, Denies weakness, Denies weight gain and Denies weight loss ENT Denies dizziness Card Denies chest pain, Denies leg edema, Denies lightheadedness, Denies palpitations, Denies dyspnea, Denies dyspnea on exertion, Denies orthopnea and Denies other (loss of consciousness) Resp Denies cough, Denies dyspnea and Denies dyspnea on exertion GI Denies hematochezia and Denies change in stool character Musc Denies abnormal gait, Denies muscle weakness, Denies numbness, Denies radiating pain into limb and Denies tingling Neuro Denies abnormal gait, Denies dizziness, Denies frequent falls, Denies numbness, Denies tingling and Denies weakness Endo Denies fatigue and Denies palpitations Physical Exam Vital Signs: Last Vital Signs Pulse 62 06/07/24 09:34 BP 110/60 06/07/24 09:34 BMI result Body Mass Index 28.0 Const General: cooperative, comfortable, no acute distress, alert and awake Nutritional Appearance: average body habitus and other (Frail) Orientation/consciousness: patient oriented x3 Limitations: no limitations Neck Neck: Yes trachea midline, Yes supple and Yes no JVD Resp Effort & Inspection: normal respiratory effort Auscultation: clear to auscultation bilaterally Cardio Jugular venous distension: no JVD Palpation: normal PMI Rate: regular rate Rhythm: abnormal rhythm with ectopic beats Heart sounds: S1 normal heart sound present, S2 normal heart sound present and Murmur heart sound present systolic early GI Auscultation: normal bowel sounds Skin General skin exam: no rashes or lesions noted Neuro General: patient oriented x3 and no focal motor deficits Extrem General: Yes no clubbing, cyanosis or edema Psych Appearance: grossly normal Office Procedures EKG Details: EKG shows normal sinus rhythm with sinus arrhythmia with T-wave inversion in lead 3 and AVF which could represent ischemia versus repolarization abnormality 44227-[id number], Complete Assessment & Plan Assessment & Plan (1) Paroxysmal atrial flutter: Code(s): I48.92 - Unspecified atrial flutter Category: Medical Plan: Paroxysmal atrial flutter without any obvious clinical recurrence at this point time. Continue metoprolol therapy. Avoidance of stimulants was discussed. Continue rhythm control approach. Continue full oral anticoagulation, currently on Xarelto 20 mg daily. Continue monitor renal function as well as CBC every 6 months. CHADSVASc score of 5. I would avoid aspirin therapy although he has underlying PVD to reduce bleeding risk, continue full oral anticoagulation which should prevent platelet related aggregation. (2) HTN (hypertension): Code(s): I10 - Essential (primary) hypertension Category: Medical Plan: Hypertension with recent hospitalization for orthostatic hypotension most likely due to dehydration poor oral intake and possibly some autonomic dysfunction related to his diabetes. At this point time orthostatic precautions was discussed advised to maintain adequate hydration. Continue metoprolol therapy. Blood pressure is currently well optimized. Will follow up in the clinic in 1 year's time, sooner p.r.n.. Thank you for allowing me to partake in his care Medications: Discontinued aspirin Discontinued Reason: Doctor's Order 81 mg PO DAILY Resumed rivaroxaban (Xarelto) 20 mg PO DAILY@1700 Coding Level of Care Code Est Pt Level 4 (82217) Complex EM visit Add On G2211 Diagnoses Paroxysmal atrial flutter I48.92 HTN (hypertension) I10 CPT Codes EKG - CPT: 00614-Mkgenxuajeuenyzwc, Complete ([id number])
[2024-06-07 09:34] VITALS: BP 110/60; PULSE 62; BMI 28.0
--- OUTSIDE RECORDS SUMMARY | 2024-06-07 11:03 | XMS_ITS | Patient Health Record ---
Author Organization [facility] Address [address] [place] [address] Care Team Providers Care Tobacco Cutter Name Role Phone Waylon Diaz MD Primary Care Provider Blair Nielson Jr Unavailable Results Component Value Reference Range Notes Prothrombin Time INR Reviewed date:04/23/2024 04:11:29 PM Interpretation: Performing Lab:[facility], [address] [place] [address] Notes/Report: Prothrombin Time 13.9 10.9-12.4 SEC INTERNATIONAL NORM RATIO 1.2 0.9-1.1 INTERNATIONAL NORMALIZED RATIO (INR) REFERENCE RANGES Reference Range For patients not on anticoagulant therapy: 0.9 - 1.1 INR ranges for oral anticoagulant therapy: For prevention and treatment of venous thrombosis and pulmonary embolism: 2.0 - 3.0 For acute myocardial infarction with aspirin therapy: 2.0 - 3.0 For acute myocardial infarction without aspirin therapy: 3.0 - 4.0 For patients with mechanical prosthetic heart valves: 2.5 - 3.5 Pathology (Not yet reviewed by provider) Interpretation: Performing Lab:[facility], [address] [place] [address] Notes/Report: --- Name: Vidal Patton Age/Sex: 83/M : 1940 Unit#: [id number] Attend Dr: Lorna Julien NP Re04/21/24 Status : ADM IN Location: [facility] 444-2 Disch: --- SPEC : [id number] RECD: 04/23/241505 STATUS: VANI CONROY NUM: [id number] RHONDA: 04/23/24-[address] [facility] [address]: Vidal Olivera MD ENTERED: 04/23/24- 14 SP TYPE: Surgical OTHR DR: Waylon Diaz MD, Jackie NP ORDERED: HE Stain/3, Gross Micro L4, IHC, Special st. 2, H. pylori, AB/PAS Diagnosis Stomach, antrum, biopsy: - Antral-type mucosa with moderate chronic, focally active, inflammation and focal intestinal metaplasi a; negative for dysplasia. - Positive for H pylori. Clinical History Pre-Op Dx: Diminishe d appetite, weight loss Post-Op Dx: Duodenal ulcer, esophagitis Microscopic Description Microscopic sections examined. Focal intestinal metaplasia is seen, supported by AB/PAS stains; Helicobacter organisms are seen, supported by H. pylori immunostain. Material Received Gastric antrum bx Gross Description Received in formalin labeled gastric antrum bx are 3 pelayo rectangular tissue fragments each measuring 0.35 cm, submitted in toto in a cassette labeled A. CEDS Special studies orde red and performed: Immunostain for H. pylori; AB/PAS stains Copies To: Waylon Diaz MD [address] [address] Lorna Julien NP [address] [place] [address] CONTINUED ON NEXT PAGE --- Name: Vidal Patton Age/Sex: 83/M : 1940 Unit#: [id number] Attend Dr: Lorna Julien PARTY PLAN DEMONSTRATOR Re04/21/24 Status : ADM IN Location: [facility] 444-2 Disch: --- SPEC : [id number] RECD: 04/23/241505 STATUS: VANI CONROY NUM: [id number] RHONDA: 04/23/24-[address] [facility] [address]: Vidal Olivera MD ENTERED: 04/23/24 14 SP TYPE: Surgical OTHR DR: Waylon Diaz MD, Jackie NP ORDERED: HE Stain/3, Gross Micro L4, IHC, Special st. 2, H. pylori, AB/PAS Copies To: (Continued) Vidal Olivera MD [facility] [address] [place] [address] --- Signed (signature on file) Turner Morales MD 04/25/24 0942 --- END OF REPORT Reason For Referral No Information Medications Medication SIG (Take, Route, Frequency, Duration) Notes Start Date End Date Status Levothyroxine Sodium 125 MCG 1 tablet on an empty stomach in the morning Orally Once a day Active metFORMIN HCl 500 MG 1 tablet with meals Orally Twice a day Active Cilostazol 100 MG 1 tablet 30 minutes before or 2 hours after breakfast and dinner Orally Twice a day Active amLODIPine Besylate 10 MG 1 tablet Orall y Once a day Active HumaLOG 100 UNIT/ML 16 units Subcutaneou s sliding scale Active Atorvastatin Calcium 10 MG 1 tablet Oral ly Once a day Active Lisinopril 40 MG 1 tablet Orally Once a day Active Lantus 100 UNIT/ML 57 units Subcutaneous BID Active Immunizations Vaccine Route Administration Date Status Comme nts Flu vaccine no Preserv 3 and > Unknown 02/24/2016 Admin istered Social History Tobacco Use: Social History Observation Description Date Details (start date - stop date) Never Smoker NA - NA Tobacco Use/Smoking Question Answer Notes Patient is a nonsmoker Alcohol Screen Question Answer Notes Did you have a drink containing alcohol in the p ast year? No Points 0 Interpretation Negative Section Notes: ocassional cigar Problems Problem Type SNOMED Code ICD Code Onset Dates Problem Status W/U Status Risk Notes Problem 854952153 Colon cancer screening (Z12.11) Active confirmed Problem Anorexia (60266027) Anorexia (R63.0) Active confirmed Encounters Encounter Location Date Provider Diagnosis [facility] [address] [facility] [address] [place] [address] 04/30/2024 Blair Espinoza Jr Plan Of Treatment Pending Test Test Name Order Date Pathology 04/23/2024 Insurance Providers Payer Name Payer Address Payer Phone Subscriber Number Group Number Insured Name Patient Relationship to Insured Coverage Start Date Coverage End Date MEDICARE OF [place] [address] [place] [id number] [phone] [id number] VIDAL PATTON Self - patient is the insured [employer] ATT[employer] CLAIMS [address] [place] [address] [id number] VIDAL PATTON Self - patient is the insured Medical (General) History Medical History History ICD Code hypertension diabetes mellitus peripheral vascular disease elevated cholesterol Surgical History Surgery Date(Month/Year) stent placement-right leg hernia repair cataract removal
--- OUTSIDE RECORDS SUMMARY | 2024-06-07 11:04 | XMS_ITS ---
Author Organization [facility] [place] Address [address] [place] [address] Care Team Providers Care Warp Splitter Name Role Phone Waylon Diaz MD Primary Care Provider Unavaila anson Black, Shelley Unavailable [phone] Allergies No Known Allergies REASON FOR VISIT At Risk Footcare, Wart(s), Ingrown Nail, Toe Irritation Medications Medication SIG (Take, Route, Frequency, Duration) Notes Start Date End Date Status zzzExtra Depth Orthopedic Shoes (1 Pair) with Customized Heat Molded Multidensity Innersoles (3 Pair) . . . Dx: IDDM/Polyneuropathy (E10.42), Hammertoe Foot Deformity (M20.41,M20.42), Preulcerative Skin Lesion(s) (L85.1) for . 07/17/2015 Not-Taking Extra-Depth Diabetic Shoes with 3 Pair Custom heat-molded multi-density innersoles Not-Taking Extra Depth Orthopedic Shoes (1 Pair) with Customized Heat Molded Multidensity Innersoles (3 Pair) as directed Dx: NIDDM/Polyneuropathy (E11.42), Hammertoe Foot Deformity (M20.41,M20.42), Preulcerative Skin Lesion(s) (L85.1 11/02/2018 Not-Taking Night Splint AFO - L1930 1 wear at rest for 30 days Active Extra Depth Orthopedic Shoes (1 Pair) with Customized Heat Molded Multidensity Innersoles (3 Pair) as directed Dx: NIDDM/Polyneuropathy (E11.42), Hammertoe Foot Deformity (M20.41,M20.42), Preulcerative Skin Lesion(s) (L85.1 01/06/2023 Active Vitamin D Active Levothyroxine Sodium Active Lisinopril Active Lantus Active HumuLIN R Active Eye Drops unsure name Not-Taki ng Cilostazol Active Atorvastatin Calcium Active amLODIPine Besylate Active Extra Depth Orthopedic Shoes (1 Pair) with Customized Heat Molded Multidensity Innersoles (3 Pair) as directed Dx: NIDDM/Polyneuropathy (E11.42), Hammertoe Foot Deformity (M20.41,M20.42), Preulcerative Skin Lesion(s) (L85.1 05/10/2024 Active Lipitor Not-Taking Extra Depth Orthopedic Shoes (1 Pair) with Customized Heat Molded Multidensity Innersoles (3 Pair) as directed Dx: NIDDM/Polyneuropathy (E11.42), Hammertoe Foot Deformity (M20.41,M20.42), Preulcerative Skin Lesion(s) (L85.1 10/17/2017 Not-Taking Social History Tobacco Use: Social History Observation Description Date Details (start date - stop date) Never Smoker NA - NA Tobacco Use/Smoking Question Answer Notes Are you a: nonsmoker Additional Findings: Tobacco Non-User Current no n-smoker Tobacco use other than smoking: Question Answer Notes Are you an other tobacco user? 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, with unspecified presence of clinical manifestation I70.203 ; Other hammer toe(s) (acquired), right foot M20.41 ; Intermittent claudication I73.9 ; Tinea unguium B35.1 ; Type 2 diabetes mellitus with diabetic polyneuropathy E11.42 ; Plantar wart B07.0 ; Pain in right foot M79.671 ; Ingrown nail L60.0 and Other hammer toe(s) (acquired), left foot M20.42 Assessments Encounter Date Diagnosis (ICD Code) Assessment Notes Treatment Notes Treatment Clinical Notes Section Notes 05/10/2024 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 pdf (DIABETIC FOOT CARE INSTRUCTIONS. pdf) 05/10/2024 Intermittent claudication (ICD-10 - I73.9) 05/10/2024 Tinea unguium (ICD-10 - B35.1) 05/10/2024 Type 2 diabetes mellitus with diabetic polyneuropathy (ICD-10 - E11.42) 05/10/2024 Plantar wart (ICD-10 - B07.0) 05/10/2024 Pain in right foot (ICD-10 - M79.671) 05/10/2024 Ingrown nail (ICD-10 - L60.0) 05/10/2024 Other hammer toe(s) (acquired), left foot (ICD-10 - M20.42) Plan Of Treatment Medication Medication Name Sig Start Date Stop Date Notes Extra Depth Orthopedic Shoes (1 Pair) with Customized Heat Molded Multidensity Innersoles (3 Pair) as directed Dx: NIDDM/Polyneuropathy (E11.42), Hammertoe Foot Deformity (M20.41,M20.42), Preulcerative Skin Lesion(s) (L85.1 05/10/2024 Treatment Notes Assessment Notes Other hammer toe(s) (acquired), right fo ot Patient Educated with: DIABETIC FOOT CARE INSTRUCTIONS.pdf (DIABETIC FOOT CARE INSTRUCTIONS.pdf) Pending Test Test Name Order Date 52516-TPTESLZ NAIL, 6 OR MORE 05/10/2024 81386-Alnv Destruction, 1-14 05/10/2024 12695-Kyltnmut Plate 05/10/2024 41903-ELSF SKIN LESIONS, OVER 4 05/10/19 25 Next Appt Details Follow Up: 3 Months, Reason: Provider Name:Shelley Xavier , 08/30/2024 10:30:00 AM, [address] [place], [address], Procedure Notes * Category Sub-Category Detail Notes Wart Treatment Procedure Verrucae(s) were debrided to pin-point bleeding margins with sterile surgical blade, silver nitrate chemocautery applied, recomm. immune-boosting meds such as zinc, recomm. follow up with topical chemosurgical agents, (91420), DIABETES: Any more invasive procedure to wart deferred due to diabetes risk, CIRCULATION: Any more invasive procedure to wart deferred due to circulation risk Nail Avulsion Procedure A fine sterile e levator was placed between the eponychium, nail fold, and nail plate to separate the structures. A sterile nail splitter, and/or sterile 316 blade, was then used to longitudinally section the nail along its entire length through the eponychium to the area under the nail fold. The offending portion of nail was from the nail bed with a rolling action and then removed with a hemostat. No underlying bone was identified. There was minimal bleeding as hemostasis was achieved through the temporary use of either a digital tourniquet or the aforementioned local with epinephrine. A bacitracin sterile dressing was applied. Local wound aftercare instructions were discussed and dispensed. The patient was informed of both conservative and future surgical procedures to prevent recurrence. 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 Therefore, debridement to affected nail(s), as described in exam ( TA, T1, T2, T3, T4, T6, ), was performed exclusively by the physician of record to reduce/remove overall nail length, girth, thickness, subungual debris, and necrotic tissue, by manual and/or electrical means through the use of a nail nipper and/or dremel-type custom grinder, to a more viable healthy nail plate or bed tissue 6-10 nails in total. Silver nitrate was used for any petechial bleeding as necessary. Definitive antifungal treatment options, both pharmaceutical and surgical, have been reviewed and discussed with the patient. The patient solely prefers the use of intermittent/as needed professional debridement services for their nail condition and understands the need for additional periodic treatments to maintain effectiveness in symptomatic relief - 68278 Keratoma Treatment Parring or Cutting o f Benign Hyperkeratotic Lesion(s) (-57) More than 4 Lesions - Due to the a t risk nature of the patients medical condition as documented in the exam findings, performance of this keratoderma treatment is medically necessary as its management by an unskilled/untrained nonprofessional would put this patients foot and overall health at risk. Therefore, the benign hyperkeratotic lesions, ( _9_ ) in total, locations as stated and described in the exam ( Medial, Heel(s) B/L Midfoot B/L SUB MTH (s) 2 B/L, Dorsal, T7, T8, , T9 ), were pared, and/or cut utilizing a sterile 15 blade, tissue nippers, and/or power dremel instrumentation by the physician of record - 82059, Progress Notes * ANA ElanDOB:1940 (83 yo M)Acc No.[id number]:05/10/2024 Progress Note Patient:?Elan PATTON Provider:?Shelley Xavier DPM :1940???Age:83 Y???Sex:Male Joseph e:05/10/2024 Address:[address] [place] [address], [place], [id number] Pcp:Waylon Diaz MD Subjective: * Chief Complaints: * ???At Risk FootcareWart(s)In grown NailToe Irritation * HPI: ???At Risk footcare:?Pt States Last PCP Visit:?Date?02/17/2024 ???Skin problems:?Pt States PCP Visit: ?DATE?02/17/2024 ???Toe pain:?Location:?B/L feet.?Duration:?several years.?Course:?worse.?Aggravated by:?shoes, any pressure.?Treatments:?change in shoes.? * ROS:?General/Constitutional:?Nausea?denies.?Vomiting?denies.?Hunger Thirst?denies.?Loss appetite?denies.?Chills?denies.?Fatigue?denies.?Fever?denies.?Night Sweats?denies.?Unexplained weight loss?denies.?Unexplained weight gain?denies.?HEENTM:?Dentures?denies.?Dizziness?denies.?Glasses/contacts?admits.?Retinopathy?adm its.?Blurred/double vision?denies.?TMJ?denies.?Discharge/drainage?denies.?Implants?denies.?Sore throat?denies.?Dental implants?denies.?Hard of hearing ?denies.?Difficulty chewing/swallowing/speaking?denies.?Nose bleeds?denies.?Sore mouth?denies.?Respiratory:?On O xygen?denies.?Pneumonia/pleurisy?denies.?Bronchitis?denies.?Emphysema?denies.?Co ughing?denies.?Cough blood?denies.?Shortness of breath?denies.?Wheezing?denies.?Cardiovascular:?Pacemaker?denies.?MVP?denies.?WPW?denies.?CHF?denies.?Heart attack?denies.?Septal defect?denies.?Rapid beat?denies.?Chest pain ?denies.?Atrial Fib.?denies.?Murmur/Palpitations?denies.?Gastrointestinal:?Hemorrhoids?denies.?Stomach/Abdominal pain?denies.?Dark blood stool?denies.?Irritable bowel ?denies.?Constipation?denies.?Diarrhea?denies.?Hematology:?Swelling?denies.?Clots?denies.?Varicose Veins?denies.?Bruising?denies.?Bleeding problem?denies.?Genitourinary:?Blood urine?denies.?Frequent/Painfu/urination/bladder control?denies.?Kidney stones?denies.?Infection (UTI)?denies.?Nephropathy?denies.?sex trans dis (STD)?denies.?Prostate?denies.?Musculoskeletal:?Hammertoes?admits.?Bunions?denies.?Back Pain?denies.?Muscle Cramps/ Resting?denies.?Muscle cramps / walking?denies.?Generalized aches and pains?denies.?Weakness?denies.?Integ.:?Ziegler?denies.?Scars?denies.?Corns/calluses?denies.?Ingrown nails?admits.?Painful nails?admits.?Open Sores?denies.?Rashes?denies.?Neurologic:?Difficulty sleeping?denies.?Brain disorder?denies.?Numbness?denies.?Balance t rouble?denies.?Confusion?denies.?Fainting/blackouts?denies.?Tingling?denies.?Donta mors?denies.? * Medical History:? * Surgical History:?leg surger y Catarac SX Both Eyes 11/2016[facility] 06/2017Leg surgery- (Right) Stent Placement @ [facility] 08/2017Right eye 12/2018 * Hospitalization/Major Diagno stic Procedure:?Denies Past Hospitalization * Family History:?Mother: dece ased, diagnosed with Other specified conditions influencing health status.?Father: , diagnosed with Other specified conditions influencing health status.? Pt denies family history. * Social History:?Tobacco Use:?Tobacco Use/Smoking?Are you a:?nonsmoker ?Additional Findings: Tobacco Non-User?Current non-smoker ?Tobacco use other than smoking?Are you an other tobacco user??Yes Cigars occasionally ???Miscellaneous:?Caffeine: yes, frequency:, more than 4 cups per day. ?Children: yes, 2. ?Exercise: yes, walking. ?Marital status: . ?Occupation: retired Maintenance. * Medications:?TakingamLODIPin e Besylate Atorvastatin Calcium Cilostazol HumuLIN R Lantus Lisinopril Levothyroxine Sodium Vitamin D Extra Depth Orthopedic Shoes (1 Pair) with Customized Heat Molded Multidensity Innersoles (3 Pair) as directed Dx: NIDDM/Polyneuropathy (E11.42), Hammertoe Foot Deformity (M20.41,M20.42), Preulcerative Skin Lesion(s) (L85.1 Night Splint AFO - L1930 1 wear at rest Taking amLODIPine Besylate Taking Atorvastatin Calcium Taking Cilostazol Taking HumuLIN R Taking Lantus Taking Lisinopril Taking Levothyroxine Sodium Taking Vitamin D Taking Extra Depth Orthopedic Shoes (1 Pair) with Customized Heat Molded Multidensity Innersoles (3 Pair) as directed Dx: NIDDM/Polyneuropathy (E11.42), Hammertoe Foot Deformity (M20.41,M20.42), Preulcerative Skin Lesion(s) (L85.1 Taking Night Splint AFO - L1930 1 wear at rest Not-Taking/PRNExtra Depth Orthopedic Shoes (1 Pair) with Customized Heat Molded Multidensity Innersoles (3 Pair) as directed Dx: NIDDM/Polyneuropathy (E11.42), Hammertoe Foot Deformity (M20.41,M20.42), Preulcerative Skin Lesion(s) (L85.1 Extra-Depth Diabetic Shoes with 3 Pair Custom heat-molded multi-density innersoles zzzExtra Depth Orthopedic Shoes (1 Pair) with Customized Heat Molded Multidensity Innersoles (3 Pair) . . . . Dx: IDDM/Polyneuropathy (E10.42), Hammertoe Foot Deformity (M20.41,M20.42), Preulcerative Skin Lesion(s) (L85.1) Extra Depth Orthopedic Shoes (1 Pair) with Customized Heat Molded Multidensity Innersoles (3 Pair) as directed Dx: NIDDM/Polyneuropathy (E11.42), Hammertoe Foot Deformity (M20.41,M20.42), Preulcerative Skin Lesion(s) (L85.1 Lipitor Eye Drops , Notes to Pharmacist: unsure nameMedication List reviewed and reconciled with the patientNot-Taking/PRN Extra Depth Orthopedic Shoes (1 Pair) with Customized Heat Molded Multidensity Innersoles (3 Pair) as directed Dx: NIDDM/Polyneuropathy (E11.42), Hammertoe Foot Deformity (M20.41,M20.42), Preulcerative Skin Lesion(s) (L85.1 Not-Taking/PRN Extra-Depth Diabetic Shoes with 3 Pair Custom heat-molded multi-density innersoles Not-Taking/PRN zzzExtra Depth Orthopedic Shoes (1 Pair) with Customized Heat Molded Multidensity Innersoles (3 Pair) . . . . Dx: IDDM/Polyneuropathy (E10.42), Hammertoe Foot Deformity (M20.41,M20.42), Preulcerative Skin Lesion(s) (L85.1) Not-Taking/PRN Extra Depth Orthopedic Shoes (1 Pair) with Customized Heat Molded Multidensity Innersoles (3 Pair) as directed Dx: NIDDM/Polyneuropathy (E11.42), Hammertoe Foot Deformity (M20.41,M20.42), Preulcerative Skin Lesion(s) (L85.1 Not-Taking/PRN Lipitor Not-Taking/PRN Eye Drops , Notes to Pharmacist: unsure nameMedication List reviewed and reconciled with the patient * Allergies:?NJosé Antonioyes[Aller gies Verified] Objective: * Vitals:?Ht: 6 ft 0 in, Wt: 1 78, BMI: 24.14, Shoe size: 10, BP: 120/80 mm Hg, BS: not taken, Wt-k.74 kg. * ???Past Orders: ???Lab:HEMOGLOBIN A1C (GLYCO HEMOGLOBIN) (Order Date - 01/27/2024) (Collection Date & Time - 01/27/2024 09:34 AM) ? Value Reference Range ?HEMOGLOBIN A1C % (HH) 6.5 * Examination: ???Ophthalmology Referral: ?DIABETES EYE EXAM?Procedure Performed:?Yes ?Date of Exam Performed?03/28/2024 ?Findings of Diabetic Eye Exam:?no retinopathy?General Examination: ?GENERAL APPEARANCE:?Reveals a pleasant, alert, well nourished, well- developed, well hydrated individual, who demonstrates proper attention to hygiene/body habitus, and is in no acute distress, Pt serves as own historian for office visit today.?ORIENTED:?person, place, and time.?FOOT EXAM:?Lower Extremity Neurological Exam performed:?Yes Date ?Visual exam of foot performed:?Yes ?Date?05/10/2024 ?Sensory testing performed:?sensations diminished ?Sensory and motor testing performed:?sensations diminished ?Pedal pulse taking performed:?absent ?Footwear Evaluation?Footwear Evaluation performed:?Yes?Vascular: ?DP PULSES (B):?0/4, B/L.?PT PULSES (B):?, 0/4, B/L.?CAPILLARY FILL TIME:? delayed, all digits, B/L.?TROPHIC CONDITION-TEXTURE/ELASTICITY/TURGOR/HAIR GROWTH (B):? decreased, fragile, thin, shiny skin, with sparse to absent hair growth, B/L ,.?TEMPERTURE GRADIENT (C):? decreased, cool to cool, proximal to distal, B/L ,?.?PIGMENTATION:??pale.?EDEMA (C):?1/4, non-pitting, B/L.?CLAUDICATION (C):??admits,Right , 0-15 min.?REST PAIN:?denies, B/L.?PARESTHESIA (C):?absent, B/L.?BURNING (C):?absent, B/L.?Nails: ?NAILS are:?Elongated, overgrown, dystrophic, lytic, greater than 3mm thick, discolored and friable with crumbly malodorous subungual debris, with dull to no pain on palpation due to neuropathy, TA, T1, T2, T3, T4, T6, remaining nails are elongated, overgrown, dystrophic.?Dermatologic: ?SKIN FINDINGS:?Skin exam reveals keratotic lesion(s) located at, Medial, Heel(s) B/L Midfoot B/L SUB MTH (s) 2 B/L, Dorsal, T7, T8, , T9.?VERRUCA:?Reveals a Single , multi-loculated , mosaically patterned, round, raised, flat-topped, petechial bleeding papule(s), with cauliflower appearance and interruption of skin lines, pain to lateral compression, and size estimated at??plantar Forefoot,1-2? mm diameter , RIGHT.?Orthopedic: ?MUSCLE STRENGTH:?5/5 all groups in a symmetrical fashion, B/L.?DIGITAL DEFORMITIES:?Digital contracture, PIPJ, 2-5 B/L, incompl-reducible to push-up test, no over, nor underlapping,?there is?evidence of shoe producing skin irritation.?FOOTWEAR:?worn, non-supportive, shoe gear properties exacerbate patient's foot/toe deformity.?Neurological: ?SENSORY:??exam demonstrates. reduced vibration lower extremity reduced light touch sensation reduced sharp/dull pin prick discrimination , , , 5.07 monofilament test performed at plantar aspects of 5 varied sites per foot shows sensation, reduced, at absent, , B/L, Pt relates, Cont. anesthesia.?Ingrown Nail: ?INSPECTION:?Reveals nail incurvation, pain on palpation, groove hypertrophy, groove ischemia, Lateral nail border, T5.? 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 Plan: * Treatment: 2.?Tinea unguium?Procedure: 96401-SEHFQZC NAIL, 6 OR MORE 3.?Type 2 diabetes mellitus with diabetic polyneuropathy?Procedure: 55696-FEPN SKIN LESIONS, OVER 4 4.?Plantar wart?Procedure: 26043-Vjmu Destruction, 1-14 5.?Ingrown nail?Procedure: 65446-Avddwtly Plate * Procedures:?Debride Nail 6-10:?Nail debridement?Due to the clinical pathology outlined in the exam findings, performance of this nail treatment is medically necessary as its management by an unskilled/untrained nonprofessional would put this patients foot and overall health at risk. Therefore, debridement to affected nail(s), as described in exam ( TA, T1, T2, T3, T4, T6, ), was performed exclusively by the physician of record to reduce/remove overall nail length, girth, thickness, subungual debris, and necrotic tissue, by manual and/or electrical means through the use of a nail nipper and/or dremel-type custom grinder, to a more viable healthy nail plate or bed tissue 6-10 nails in total. Silver nitrate was used for any petechial bleeding as necessary. Definitive antifungal treatment options, both pharmaceutical and surgical, have been reviewed and discussed with the patient. The patient solely prefers the use of intermittent/as needed professional debridement services for their nail condition and understands the need for additional periodic treatments to maintain effectiveness in symptomatic relief - 88508.?Keratoma Treatment:?Parring or Cutting of Benign Hyperkeratotic Lesion(s)?(-57) More than 4 Lesions - Due to the at risk nature of the patients medical condition as documented in the exam findings, performance of this keratoderma treatment is medically necessary as its management by an unskilled/untrained nonprofessional would put this patients foot and overall health at risk. Therefore, the benign hyperkeratotic lesions, ( _9_ ) in total, locations as stated and described in the exam ( Medial, Heel(s) B/L Midfoot B/L SUB MTH (s) 2 B/L, Dorsal, T7, T8, , T9 ), were pared, and/or cut utilizing a sterile 15 blade, tissue nippers, and/or power dremel instrumentation by the physician of record - 52153,.?Nail Avulsion:?Location?, Lateral nail border, T5.?Anesthesia?, was deferred - NEUROPATHY: patient has medically documented neuropathic condition affecting sensation.?Procedure?A fine sterile elevator was placed between the eponychium, nail fold, and nail plate to separate the structures. A sterile nail splitter, and/or sterile 316 blade, was then used to longitudinally section the nail along its entire length through the eponychium to the area under the nail fold. The offending portion of nail was from the nail bed with a rolling action and then removed with a hemostat. No underlying bone was identified. There was minimal bleeding as hemostasis was achieved through the temporary use of either a digital tourniquet or the aforementioned local with epinephrine. A bacitracin sterile dressing was applied. Local wound aftercare instructions were discussed and dispensed. The patient was informed of both conservative and future surgical procedures to prevent recurrence. Tylenol or Motrin was recommended for pain or discomfort (23403), DIABETES: Matricectomy deferred at this time due to diabetes risk.?Wart Treatment:?Procedure?Verrucae(s) were debrided to pin-point bleeding margins with sterile surgical blade, silver nitrate chemocautery applied, recomm. immune-boosting meds such as zinc, recomm. follow up with topical chemosurgical agents, (54364), DIABETES: Any more invasive procedure to wart deferred due to diabetes risk, CIRCULATION: Any more invasive procedure to wart deferred due to circulation risk.? * Procedure Codes:?62105 DEBRI DE NAIL, 6 OR MORE, Modifiers: XS 71640 Avulsion Plate, Modifiers: T5 44243 Wart Destruction, 1-14, Modifiers: XS 33816 TRIM SKIN LESIONS, OVER 4, Modifiers: Q8 * Preventive Medicine:? ??Counseling:?Tobacco use:?Type of Tobacco Use Cessation Counseling provided?Smoking cessation education ?Patient counseled on the dangers of smoking and urged to quit:?05/10/2024 ?Discussion:?-14: Office or other outpatient visit for the evaluation and management of an established patient, which required a medically appropriate history and/or examination and MODERATE level of DECISION MAKING for: 1 OR MORE CHRONIC PROBLEM(S) THATS WORSENING, 2 STABLE CHRONIC PROBLEMS, A NEWLY DIAGNOSED PROBLEM WITH UNCERTAIN PROGNOSIS, AN ACUTE COMPLICATED INJURY WITH MULTIPLE TREATMENT OPTIONS, OR AN ACUTE PROBLEM WITH ACCOMPANYING SYSTEMIC SYMPTOMS, THAT POSE(S) A MODERATE RISK OF MORBIDITY. THIS CONDITION MAY ALSO INCLUDE RX DRUG MANAGEMENT, OR A DECISON FOR MINOR SURGERY. The visit on the day of the encounter encompassed interpreting the data and educating the patient as to the nature of their condition, treatment options available according to their individual PMH, meds, allergies, and overall health/living conditions, as well as any potential risks or complications that may occur from a failure to adhere to, and participate in, the recommended course of therapy. The discussion included a complete verbal, and/or written explanation of the examination results, any x-rays taken, the proposed diagnosis, and outline of the treatment plan. A schedule for future care needs was also explained. The patient verbalized an understanding of the instructions at this time and agreed to be an active participant in their treatment. If the patient should think of any questions or concerns after the visit, I have encouraged the patient to call the office.?Digital Surgery:?We elected to try conservative treatment at the present time, due to the patients age, medical history, and circulatory constraints.?Digital Treatment:?HT- I explained to the patient the possible etiologies of Hammertoes, including genetics/foot type/shoegear/activity level/exercise routine and the risks/benefits of all the different treatment options for their pain including: No treatment at all, Rest, Ice, New/supportive/wider/deeper Shoe gear, Digital Padding/Strapping/Taping/Bracing/Gel protective sleeves, Foot/Ankle AFO Bracing, Stretching exercises, Deep Tissue Massage, Arch support/shoe inserts with splay metatarsal padding, and Custom orthoses. I insisted that any digital devices be removed daily and not worn overnight for safety. The patient is to carefully examine the toes daily for any skin irritation while using any splinting or padding device. The advantages and disadvantages of each option were discussed and the patients questions re: shoe gear, padding, custom vs prefabricated inserts, activity level, and consistency in home treatment regimens for optimal success were answered to their verbally confirmed satisfaction, Recomm, rest, ice, proper shoegear, padding, orthotics, anti-inflammatories or tylenol as tolerated, topical analgesics, cortisone injections.?Shoe Gear Counseling:?SHOE Rx - The patient was counseled in great detail on their muscoloskeletal foot and toe deformities which coincided with the dermatological presentations visualized on exam. We discussed how their deformities put the integrity of their feet at risk for potential pedal complications which makes the accomidative diabetic shoes and cutomizable inserts medically necessary. We discussed the different shoe and insert treatment types and options, as well as the important advantages for adhering to regularly wearing these accomidative devices daily. The patient was made aware of the fact that a failure to abide by these recommedations may be deleterious to their foot health as they are able to prevent many pedal complications such as skin irritation, skin ulceration, infection, and even loss of toe/foot/leg/or life. Time was also spent with the patient dispensing and discussing proper diabetic footcare techniques including daily skin moisturization, daily foot inspection for any interruption in skin integrity including open lesions, or sign of infection such as redness/malodor/drainage/swelling. Also discussed and recommended were procedures regarding daily shoe inspection for the presence of internal foreign bodies as well as any visualized irregular shoe or insert wear. Patient questions re: shoes, inserts, and self foot inspections were answered to their satisfaction as the patient verbally confirmed a full understanding of the above information. A Rx for Extra Depth Orthopedic Shoes with 3 pair of custom heat-molded inserts was dispensed.? ??Screening/Special Tests:?Fall Risk?Screening:?No falls in the past year ?FALLS: Screening for Future Fall Risk?Have you had any falls with injury in the past year??No * Follow Up:?3 Months * Images: * Sign off status: Completed true * Provider:?Shelley Xavier DPM Date:?2024 Generated for Tucker sue/Erin/Halina on:?06/07/2024 11:03 AM EDT History and Physical Notes * HPI (History of Present Illness) Category Sub-Category Detail Notes Category Not es Toe pain Location: B/L feet Duration: several years Course: worse Aggravated by: shoes, any pressure Treatments: change in shoes Skin problems Pt States PCP Visit: DATE: 02/17/2024 At Risk footcare Pt States Last PCP Visit: Date: 4 Examination Category Sub-Category Detail Notes Category Not es Ingrown Nail INSPECTION: Reveals nail inc urvation, pain on palpation, groove hypertrophy, groove ischemia, Lateral nail border, T5 Neurological SENSORY: exam demonstrate s. reduced vibration lower extremity reduced light touch sensation reduced sharp/dull pin prick discrimination , , , 5.07 monofilament test performed at plantar aspects of 5 varied sites per foot shows sensation, reduced, at absent, , B/L, Pt relates, Cont. anesthesia TINEL'S COMPRESSION: Dermatologic SKIN FINDINGS: Skin exam reveal s keratotic lesion(s) located at, Medial, Heel(s) B/L Midfoot B/L SUB MTH (s) 2 B/L, Dorsal, T7, T8, , T9 VERRUCA: Reveals a Single , m ulti-loculated , mosaically patterned, round, raised, flat-topped, petechial bleeding papule(s), with cauliflower appearance and interruption of skin lines, pain to lateral compression, and size estimated at plantar Forefoot,1-2 mm diameter , RIGHT Orthopedic FOOTWEAR: worn, non-suppor tive, shoe gear properties exacerbate patient's foot/toe deformity DIGITAL DEFORMITIES: Digital contracture , PIPJ, 2-5 B/L, incompl-reducible to push-up test, no over, nor underlapping, there is evidence of shoe producing skin irritation MUSCLE STRENGTH: 5/5 all groups in a symmetrical fashion, B/L General Examination GENERAL APPEARANCE: Reveals a pleasant, alert, well nourished, well-developed, well hydrated individual, who demonstrates proper attention to hygiene/body habitus, and is in no acute distress, Pt serves as own historian for office visit today FOOT EXAM: Lower Extremity Neurological Exa m performed:: Yes Date Visual exam of foot performed:: Yes Date: 05/10/2024 Sensory testing performed:: sensations d iminished Sensory and motor testing performed:: se nsations diminished Pedal pulse taking performed:: absent ORIENTED: person, place, and t sonya Footwear Evaluation Footwear Evaluation performe d:: Yes Ophthalmology Referral DIABETES EYE EXAM Procedure Perform ed:: Yes ?Date of Exam Performed: 03/28/2024 Findings of Diabetic Eye Exam:: no retin opathy Vascular DP PULSES (B): 0/4, B/L PT PULSES (B): , 0/4, B/L CAPILLARY FILL TIME: delayed, all digits , B/L TEMPERTURE GRADIENT (C): decreased, cool to cool, proximal to distal, B/L , TROPHIC CONDITION-TEXTURE/ELASTICITY/TURGOR/HAIR GROWTH (B): decreased, fragile, thin, shiny skin, wi th sparse to absent hair growth, B/L , EDEMA (C): 1/4, non-pitting, B/ L CLAUDICATION (C): admits,Right , 0-15 min REST PAIN: denies, B/L PIGMENTATION: pale PARESTHESIA (C): absent, B/L BURNING (C): absent, B/L Nails NAILS are: Elongated, overg rown, dystrophic, lytic, greater than 3mm thick, discolored and friable with crumbly malodorous subungual debris, with dull to no pain on palpation due to neuropathy, TA, T1, T2, T3, T4, T6, remaining nails are elongated, overgrown, dystrophic Heel Pain INSPECTION:
--- OUTSIDE RECORDS SUMMARY | 2024-06-07 11:04 | XMS_ITS ---
Author Organization [facility] Address [address] [place] [address] Care Team Providers Care Private Equity Associate Name Role Phone Joe BAUM, Waylon Primary Care Provider Shelley Julian [phone] Encounters Encounter Location Date Provider Diagnosis [facility] [address] [place] [address] 01/26/2024 Shelley Xavier Plan Of Treatment Next Appt Details Provider Name:Shelley Xavier , 08/30/2024 10:30:00 AM, [address] [place], [address], Progress Notes * ABDI ElanDOB:1940 (84 yo M)Acc No.[id number]:01/26/2024 Progress Note Patient:?Elan PATTON Provider:?Shelley Xavier DPM :1940???Age:83 Y???Sex:Male Joseph e:01/26/2024 Address:[address] [place], [place] [id number] Pcp:Waylon Diaz MD Subjective: * Chief Complaints: * ??? * Medical History:? Objective: * Vitals:? Assessment: Plan: * Treatment: * Images: * The named appointment provid er may or may not be the originator of this progress note, and it is not deemed complete until electronically signed by the appointment provider. Sign off status: Pending * Provider:Michell Xavier DPM Date:?2023 Generated for Tucker sue/Erin/Halina on:?06/07/2024 11:04 AM EDT
--- OUTSIDE RECORDS SUMMARY | 2024-06-07 11:04 | XMS_ITS | Patient Health Record ---
[facility] cedric NajeraCristino Address [address] [facility] [place] [address] Care Team Providers Care Commercial Sales Consultant Name Role Phone Waylon Diaz MD Primary Care Provider Abiola Shelley Morton Unavailable [phone] Allergies No Known Allergies Results Component Value Reference Range Notes HEMOGLOBIN A1C (GLYCOHEMOGLO BIN) Reviewed date:05/10/2024 09:35:14 AM Interpretation: Performing Lab: Notes/Report: HEMOGLOBIN A1C % (HH) 6.5 Reason For Referral No Information Medications Medication SIG (Take, Route, Frequency, Duration) Notes Start Date End Date Status Extra Depth Orthopedic Shoes (1 Pair) with Customized Heat Molded Multidensity Innersoles (3 Pair) as directed Dx: NIDDM/Polyneuropathy (E11.42), Hammertoe Foot Deformity (M20.41,M20.42), Preulcerative Skin Lesion(s) (L85.1 11/02/2018 Not-Taking Vitamin D Active Levothyroxine Sodium Active Lisinopril Active Lantus Active Eye Drops unsure name Not-Taki ng HumuLIN R Active Lipitor Not-Taking Cilostazol Active Extra Depth Orthopedic Shoes (1 Pair) with Customized Heat Molded Multidensity Innersoles (3 Pair) as directed Dx: NIDDM/Polyneuropathy (E11.42), Hammertoe Foot Deformity (M20.41,M20.42), Preulcerative Skin Lesion(s) (L85.1 10/17/2017 Not-Taking Atorvastatin Calcium Active zzzExtra Depth Orthopedic Shoes (1 Pair) with Customized Heat Molded Multidensity Innersoles (3 Pair) . . . Dx: IDDM/Polyneuropathy (E10.42), Hammertoe Foot Deformity (M20.41,M20.42), Preulcerative Skin Lesion(s) (L85.1) for . 07/17/2015 Not-Taking amLODIPine Besylate Active Extra-Depth Diabetic Shoes with 3 Pair Custom heat-molded multi-density innersoles Not-Taking Extra Depth Orthopedic Shoes (1 Pair) with Customized Heat Molded Multidensity Innersoles (3 Pair) as directed Dx: NIDDM/Polyneuropathy (E11.42), Hammertoe Foot Deformity (M20.41,M20.42), Preulcerative Skin Lesion(s) (L85.1 05/10/2024 Active Night Splint AFO - L1930 1 wear at rest for 30 days Active Extra Depth Orthopedic Shoes (1 Pair) with Customized Heat Molded Multidensity Innersoles (3 Pair) as directed Dx: NIDDM/Polyneuropathy (E11.42), Hammertoe Foot Deformity (M20.41,M20.42), Preulcerative Skin Lesion(s) (L85.1 01/06/2023 Active Immunizations Vaccine Route Administration Date Status Comme nts COVID-19 Pfizer BioNTech Vaccine Unknown 05/27/2020 Administered 1st vaccine 12/16 Influenza Unknown 07/01/2015 Administered Influenza Unknown 01/06/2017 Administered Influenza Unknown 12/26/2017 Administered Influenza Unknown 12/26/2018 Administered Influenza Unknown 12/04/2019 Administered Influenza Unknown 11/26/2021 Administered Influenza Unknown 01/26/2023 Administered Social History Tobacco Use: Social History Observation Description Date Details (start date - stop date) Never Smoker NA - NA Tobacco Use/Smoking Question Answer Notes Are you a: nonsmoker Additional Findings: Tobacco Non-User Current no n-smoker Alcohol Screen Question Answer Notes Did you have a drink containing alcohol in the p ast year? No Points 0 Interpretation Negative Tobacco use other than smoking: Question Answer Notes Are you an other tobacco user? Yes C igars occasionally Problems Problem Type SNOMED Code ICD Code Onset Dates Problem Status W/U Status Risk Notes Problem Acquired hammer toe of right foot (4648993036994299) Other hammer toe(s) (acquired), right foot (M20.41) Active confirmed Problem Acquired hammer toe of left foot (8034402258913903) Other hammer toe(s) (acquired), left foot (M20.42) Active confirmed Problem Polyneuropathy due to type 2 diabetes mellitus (418912978) Type 2 diabetes mellitus with diabetic polyneuropathy (E11.42) Active confirmed Problem Intermittent claudication (49844812) Intermittent claudication (I73.9) Active confirmed Problem Atherosclerosis of [place] arteries of the extremities (189139591144048) Atherosclerosis of [place] artery of both lower extremities, with unspecified presence of clinical manifestation (I70.203) Active confirmed Q7(A), Q8(2B), Q9(1B,2 C) Problem Interstitial myositis (39929385) Interstitial myositis of left foot (M60.172) Active confirmed Vital Signs Blood pressure diastolic 80 mm Hg 05/10/2024 Height 6 ft 0 in in 05/10/2024 Blood pressure systolic 120 mm Hg 05/10/2024 Weight 178 lbs 05/10/2024 BMI 24.14 kg/m2 05/10/2024 Procedures Procedure Date Ordered Date Performed Result Body Sit e 39639-HLSQHPO NAIL, 6 OR MORE 07/25/2023 N/A 00006-Vpls Destruction, 1-07/25/2023 N/A 21211-QVNS SKIN LESIONS, OVER 4 07/25/2023 N/A 70593-TYGXXWA NAIL, 6 OR MORE 10/20/2023 N/A 15624-Uppb Destruction, 1-10/20/2023 N/A 42696-VIIL SKIN LESIONS, OVER 4 10/20/2023 N/A 35992-ECIQOAE NAIL, 6 OR MORE 02/06/2024 N/A 77234-Dpkv Destruction, 1-14 02/06/2024 N/A 51508-RQGG SKIN LESIONS, OVER 4 02/06/2024 N/A 81911-ACBWBCA NAIL, 6 OR MORE 05/10/2024 N/A 47832-Raig Destruction, 1-14 05/10/2024 N/A 61871-Ybmrwiuu Plate 05/10/2024 N/A 73164-TLZI SKIN LESIONS, OVER 4 05/10/2024 N/A Encounters Encounter Location Date Provider Diagnosis [facility] [address] [place] [address] 07/25/2023 Shelley Black Plantar fasciitis of left foot M72.2 ; Type 2 diabetes mellitus with diabetic polyneuropathy E11.42 ; Pain in left foot M79.672 ; Calcaneal spur, left foot M77.32 ; Interstitial myositis of left foot M60.172 ; Bursitis of left foot M77.52 ; Tinea unguium B35.1 ; Unspecified atherosclerosis of [place] arteries of extremities, bilateral legs I70.203 ; Plantar wart B07.0 and Pain in right foot M79.[address] [address] 10/20/2023 Shelley Black Plantar fasciitis of left foot M72.2 ; Intermittent claudication I73.9 ; Type 2 diabetes mellitus with diabetic polyneuropathy E11.42 ; Pain in left foot M79.672 ; Calcaneal spur, left foot M77.32 ; Interstitial myositis of left foot M60.172 ; Bursitis of left foot M77.52 ; Tinea unguium B35.1 ; Unspecified atherosclerosis of [place] arteries of extremities, bilateral legs I70.203 ; Plantar wart B07.0 and Pain in right foot M79.[address] [address] 02/06/2024 Shelley Black Atherosclerosis of [place] artery of both lower extremities, with unspecified presence of clinical manifestation I70.203 ; Intermittent claudication I73.9 ; Tinea unguium B35.1 ; Type 2 diabetes mellitus with diabetic polyneuropathy E11.42 ; Plantar wart B07.0 and Pain in right foot M79.[address] [address] 05/10/2024 Shelley Black Atherosclerosis of [place] artery of both lower extremities, with unspecified presence of clinical manifestation I70.203 ; Other hammer toe(s) (acquired), right foot M20.41 ; Intermittent claudication I73.9 ; Tinea unguium B35.1 ; Type 2 diabetes mellitus with diabetic polyneuropathy E11.42 ; Plantar wart B07.0 ; Pain in right foot M79.671 ; Ingrown nail L60.0 and Other hammer toe(s) (acquired), left foot M20.42 [facility] [address] [address] 11/03/2023 Shelley Duc Assessments Encounter Date Diagnosis (ICD Code) Assessment Notes Treatment Notes Treatment Clinical Notes Section Notes 07/25/2023 Type 2 diabetes mellitus with diabetic polyneuropathy (ICD-10 - E11.42) 07/25/2023 Plantar fasciitis of left foot (ICD-10 - M72.2) 10/20/2023 Intermittent claudication (ICD-10 - I73.9) 10/20/2023 Plantar fasciitis of left foot (ICD-10 - M72.2) Resolved 02/06/2024 Intermittent claudication (ICD-10 - I73.9) 02/06/2024 Atherosclerosis of [place] artery of both lower extremities, with unspecified presence of clinical manifestation (ICD-10 - I70.203) Q7(A), Q8(2B), Q9(1B,2C) 05/10/2024 Other hammer toe(s) (acquired), right foot (ICD-10 - M20.41) Patient Educated with: DIABETIC FOOT CARE INSTRUCTIONS. pdf (DIABETIC FOOT CARE INSTRUCTIONS. pdf) 05/10/2024 Atherosclerosis of [place] artery of both lower extremities, with unspecified presence of clinical manifestation (ICD-10 - I70.203) Q7(A), Q8(2B), Q9(1B,2C) 05/10/2024 Intermittent claudication (ICD-10 - I73.9) 02/06/2024 Tinea unguium (ICD-10 - B35.1) 10/20/2023 Type 2 diabetes mellitus with diabetic polyneuropathy (ICD-10 - E11.42) 07/25/2023 Pain in left foot (ICD-10 - M79.672) 07/25/2023 Calcaneal spur, left foot (ICD-10 - M77.32) 10/20/2023 Pain in left foot (ICD-10 - M79.672) 02/06/2024 Type 2 diabetes mellitus with diabetic polyneuropathy (ICD-10 - E11.42) 05/10/2024 Tinea unguium (ICD-10 - B35.1) 05/10/2024 Type 2 diabetes mellitus with diabetic polyneuropathy (ICD-10 - E11.42) 02/06/2024 Plantar wart (ICD-10 - B07.0) 10/20/2023 Calcaneal spur, left foot (ICD-10 - M77.32) 07/25/2023 Interstitial myositis of left foot (ICD-10 - M60.172) 07/25/2023 Bursitis of left foot (ICD-10 - M77.52) 10/20/2023 Interstitial myositis of left foot (ICD-10 - M60.172) 02/06/2024 Pain in right foot (ICD-10 - M79.671) 05/10/2024 Plantar wart (ICD-10 - B07.0) 05/10/2024 Pain in right foot (ICD-10 - M79.671) 07/25/2023 Tinea unguium (ICD-10 - B35.1) 10/20/2023 Bursitis of left foot (ICD-10 - M77.52) 10/20/2023 Tinea unguium (ICD-10 - B35.1) 07/25/2023 Unspecified atherosclerosis of [place] arteries of extremities, bilateral legs (ICD-10 - I70.203) 05/10/2024 Ingrown nail (ICD-10 - L60.0) 05/10/2024 Other hammer toe(s) (acquired), left foot (ICD-10 - M20.42) 07/25/2023 Plantar wart (ICD-10 - B07.0) 10/20/2023 Unspecified atherosclerosis of [place] arteries of extremities, bilateral legs (ICD-10 - I70.203) 10/20/2023 Plantar wart (ICD-10 - B07.0) 07/25/2023 Pain in right foot (ICD-10 - M79.671) 10/20/2023 Pain in right foot (ICD-10 - M79.671) Plan Of Treatment Pending Test Test Name Order Date Hemoglobin A1c 07/20/2018 85498-EISXFRW NAIL, 6 OR MORE 05/10/2024 88866-NJNZYQX NAIL, 6 OR MORE 07/25/2023 29750-UACOQWE NAIL, 6 OR MORE 10/20/2023 18106-DSSIFHH NAIL, 6 OR MORE 02/06/2024 90618-XASMJFT NAIL, 6 OR MORE 04/22/2022 49395-DOKZLQM NAIL, 6 OR MORE 07/29/2022 37059-FPAFTBJ NAIL, 6 OR MORE 01/06/2023 77705-ANPIABJ NAIL, 6 OR MORE 04/21/2023 36324-XWTERZA NAIL, 6 OR MORE 12/03/2010 55922-VDOGNAN NAIL, 6 OR MORE 03/08/2011 24195-FSMOESO NAIL, 6 OR MORE 06/09/2011 18033-JCBTDSH NAIL, 6 OR MORE 09/09/2011 79983-INBRJQZ NAIL, 6 OR MORE 12/13/2011 78673-OCKKMAO NAIL, 6 OR MORE 03/13/2012 57724-OKFDHDZ NAIL, 6 OR MORE 06/12/2012 16295-CMBGFPP NAIL, 6 OR MORE 12/18/2012 00226-DWVDAEU NAIL, 6 OR MORE 04/02/2013 26623-YLKVOGH NAIL, 6 OR MORE 09/13/2012 93979-TMWHGAQ NAIL, 6 OR MORE 06/25/2013 38601-TOAFJPY NAIL, 6 OR MORE 10/01/2013 56911-NQPVVOE NAIL, 6 OR MORE 12/31/2013 34240-OFVKDLJ NAIL, 6 OR MORE 04/10/2014 84159-UXBPWPW NAIL, 6 OR MORE 07/08/2014 71726-HMBEIPN NAIL, 1-5 10/14/2014 06186-TDDFRBU NAIL, 1-5 04/17/2015 18803-KIKESWI NAIL, 1-5 07/17/2015 93820-OJNVTVQ NAIL, 1-5 01/15/2015 68167-HSIRBHC NAIL, 1-5 10/20/2015 51318-MRQQCYX NAIL, 1-5 01/22/2016 47830-UHKDVIL NAIL, 1-5 04/22/2016 87099-BDNNDUT NAIL, 1-5 07/19/2016 93105-SQIXBJJ NAIL, 1-5 10/15/2016 75164-EPAKNIA NAIL, 1-5 01/10/2017 86278-DACGDUJ NAIL, 1-5 04/18/2017 53127-YADOQJC NAIL, 1-5 07/18/2017 85228-AYYIAMK NAIL, 1-5 10/17/2017 81530-UMKMDWE NAIL, 04-0101/16/2018 27762-CWZLSNS NAIL, 04-0112/28/2021 61668-MVFAYDF NAIL, 04-0106/22/2021 69567-GBDBBDT NAIL, 04-0109/21/2021 23300-WKQTZZD NAIL, 04-0104/20/2018 30436-JPGUSIZ NAIL, 04-0107/20/2018 18527-KYXXRET NAIL, 04-0111/02/2018 73023-JQBOLIL NAIL, 04-0102/08/2019 14212-YLGJDYM NAIL, 04-0105/17/2019 00007-OVMBEAP NAIL, 04-0112/24/2019 45577-NEYHTOL NAIL, 04-0109/13/2019 04916-NKYOBZR NAIL, 04-0103/31/2020 57889-NTBIFZQ NAIL, 04-0107/16/2020 36470-LPGZHXR NAIL, 04-0110/16/2020 84524-JTXEVRL NAIL, 04-0102/16/2021 03552-Edsq Destruction, 04-1012/24/2019 35918-Cpjf Destruction, 04-1007/29/2022 67313-Ljal Destruction, 04-1001/06/2023 54168-Wukv Destruction, 04-1007/25/2023 01274-Iqwb Destruction, 04-1010/20/2023 79143-Knqv Destruction, 04-1002/06/2024 47289-Sxpa Destruction, 04-1005/10/2024 57087-Nxmhquxv Plate 05/10/2024 03096-Alvtvcmq Plate 02/16/2021 97162-Qdrhvlnu Plate 02/08/2019 97608-Xicxunpx Plate 04/20/2018 44832-Ahhweuyv Plate 07/18/2017 45952-Zeatbxaq Plate 06/25/2013 28651-Yqtbsrug Plate 01/15/2015 22107-Becnbuyu Plate 10/14/2014 19649-Akzcsapc Plate 07/08/2014 49861-Dmqkilqi Plate 04/10/2014 87556-Exfuphzt Plate 12/31/2013 24312-Txiqcipo Plate 10/01/2013 40699-Rktkgvgf Plate 09/13/2012 83481-Yankknqh Plate 12/18/2012 98334-Qewoogob Plate 04/02/2013 68204-Iorckjll Plate 06/12/2012 96354-Itdmygbg Plate 03/13/2012 29952-Xsbenoex Plate 12/13/2011 53628-Ezrzzmgm Plate 09/09/2011 54748- Debride <25 sq cm 01/22/2016 28988 I&D ABSCESS- SIMPLE,SINGLE 024 96656-BCEU SKIN LESIONS, OVER 4 01/07/20 93497-MFPB SKIN LESIONS, OVER 4 07/25/19 04763-WBLR SKIN LESIONS, OVER 4 04/21/19 72515-UWJL SKIN LESIONS, OVER 4 04/22/19 30799-KEYX SKIN LESIONS, OVER 4 07/30/19 50960-PMNQ SKIN LESIONS, OVER 4 05/10/19 38793-ZPHZ SKIN LESIONS, OVER 4 02/06/20 67718-SMDG SKIN LESIONS, OVER 4 10/20/19 91454-WHSK SKIN LESIONS, 2 TO 4 12/29/19 33965-ZXJY SKIN LESIONS, 2 TO 4 09/22/19 26978-IRXP SKIN LESIONS, 2 TO 4 07/21/19 19 09351-TCCH SKIN LESIONS, 2 TO 4 11/03/19 19 67998-MSTF SKIN LESIONS, 2 TO 4 02/09/20 19 33993-JNQN SKIN LESIONS, 2 TO 4 09/13/19 20 07936-UMCT SKIN LESIONS, 2 TO 4 05/17/19 20 48294-LPOY SKIN LESIONS, 2 TO 4 06/23/19 22 98076-GQLX SKIN LESIONS, 2 TO 4 02/17/20 21 51500-XRKM SKIN LESIONS, 2 TO 4 10/17/19 21 95076-TRGF SKIN LESIONS, 2 TO 4 03/31/19 21 74405-CGQT SKIN LESIONS, 2 TO 4 07/17/19 21 46805-EATJ SKIN LESIONS, 2 TO 4 12/24/19 20 81574-FYIG SKIN LESIONS, 2 TO 4 01/22/20 16 04567-FBBY SKIN LESIONS, 2 TO 4 07/20/19 17 71811-CMCO SKIN LESIONS, 2 TO 4 04/22/19 17 85384-BWMB SKIN LESIONS, 2 TO 4 10/20/19 16 90421-QHAP SKIN LESIONS, 2 TO 4 01/21/20 16 16286-JZJV SKIN LESIONS, 2 TO 4 07/17/19 16 08945-VYCZ SKIN LESIONS, 2 TO 4 10/18/19 18 90878-WZXZ SKIN LESIONS, 2 TO 4 04/20/19 19 14797-MJDL SKIN LESIONS, 2 TO 4 01/17/20 18 40045-NGTG SKIN LESIONS, 2 TO 4 07/19/19 18 00863-WIGG SKIN LESIONS, 2 TO 4 04/18/19 18 83694-HLLC SKIN LESIONS, 2 TO 4 01/11/20 17 18707-WGSZ SKIN LESIONS, 2 TO 4 10/16/19 17 27303-YZAA SKIN LESIONS, 2 TO 4 12/13/19 12 80716-TYGW SKIN LESIONS, 2 TO 4 09/09/19 12 32218-TCAC SKIN LESIONS, 2 TO 4 03/13/20 12 86374-XKAQ SKIN LESIONS, 2 TO 4 04/02/19 14 12519-KORM SKIN LESIONS, 2 TO 4 06/26/19 14 36815-MMXF SKIN LESIONS, 2 TO 4 10/02/19 14 44806-LJJR SKIN LESIONS, 2 TO 4 01/01/20 14 71893-XLWN SKIN LESIONS, 2 TO 4 04/10/19 15 36381-NCSY SKIN LESIONS, 2 TO 4 07/09/19 15 34641-XLQL SKIN LESIONS, 2 TO 4 10/15/19 15 68795-NFLH SKIN LESIONS, 2 TO 4 01/16/20 15 Q3872-GMEKWGPI DYSTROPHIC NAILS ANY # J3847-GAOUJHZH DYSTROPHIC NAILS ANY # Z2910-WEGLUGEN DYSTROPHIC NAILS ANY # L3602-AHUNDHFF DYSTROPHIC NAILS ANY H5592-BKAHAGTM DYSTROPHIC NAILS ANY # W7292-BXHLZSWZ DYSTROPHIC NAILS ANY # J2229-YNFPHXFF DYSTROPHIC NAILS ANY # L7856-QUXGWMDE DYSTROPHIC NAILS ANY # Q5844-OQBDHZKA DYSTROPHIC NAILS ANY # I9699-JSQEPRKG DYSTROPHIC NAILS ANY # G0818-MMIFKZSQ DYSTROPHIC NAILS ANY # U0759-QFIUOEXO DYSTROPHIC NAILS ANY # Q8476-CAZHUVWD DYSTROPHIC NAILS ANY # N9532-AKBPUMND DYSTROPHIC NAILS ANY # Q4048-KDUBYLMR DYSTROPHIC NAILS ANY # H0886-IZUEUNFM DYSTROPHIC NAILS ANY # L4675-TZBPLINA DYSTROPHIC NAILS ANY # Y9739-GKLLZTJV DYSTROPHIC NAILS ANY # O7272-WNECUSKL DYSTROPHIC NAILS ANY # Y4662-OZDHPXPB DYSTROPHIC NAILS ANY # D5317-YLVSWVSA DYSTROPHIC NAILS ANY # Y8707-VTCKDQLH DYSTROPHIC NAILS ANY # Q3009-NYKERQPR DYSTROPHIC NAILS ANY # F4956-WUUCZKRT DYSTROPHIC NAILS ANY # R2018-JKFDHOJS DYSTROPHIC NAILS ANY # 87269,O8978-CRE TENDON SHEATH/LIGAMENT 0 05/19/2023 30939,H0712-WIC TENDON SHEATH/LIGAMENT 0 08/24/2018 Next Appt Details Provider Name:Shelley Hernandez Duc , 08/30/2024 10:30:00 AM, [address] [place], [address], Insurance Providers Payer Name Payer Address Payer Phone Subscriber Number Group Number Insured Name Patient Relationship to Insured Coverage Start Date Coverage End Date Medicare [employer] [address] [facility] [place] [address] [id number] Elan Patton Self - patient is the insured [employer] [address] [place] [address] [phone] [id number] Elan Patton Self - patient is the insured 2 Medical (General) History Medical History History ICD Code mumps diabetic type ll chicken pox Retinopathy Surgical History Surgery Date(Month/Year) leg surgery Catarac SX Both Eyes 11/2016 LT [facility] 06/2017 Leg surgery- (Right) Stent Placement @ [facility] 08/2017 Right eye 12/2018
--- OUTSIDE RECORDS SUMMARY | 2024-06-07 11:04 | XMS_ITS ---
Author Organization [facility] Address [address] [facility] [place] [address] Care Team Providers Care Sunglass Clip Attacher Name Role Phone Waylon Diaz MD Primary Care Provider Unavaila Shelley Morton Unavailable [phone] Allergies No Known Allergies REASON FOR VISIT Painful Nail(s) aggravated by shoes and causing difficulty standing/walking., At Risk Footcare, Wart(s) Medications Medication SIG (Take, Route, Frequency, Duration) Notes Start Date End Date Status Lipitor Not-Taking Extra Depth Orthopedic Shoes (1 Pair) with Customized Heat Molded Multidensity Innersoles (3 Pair) as directed Dx: NIDDM/Polyneuropathy (E11.42), Hammertoe Foot Deformity (M20.41,M20.42), Preulcerative Skin Lesion(s) (L85.1 10/17/2017 Not-Taking Eye Drops unsure name Not-Ronda Mcgill Depth Orthopedic Shoes (1 Pair) with Customized Heat Molded Multidensity Innersoles (3 Pair) . . . Dx: IDDM/Polyneuropathy (E10.42), Hammertoe Foot Deformity (M20.41,M20.42), Preulcerative Skin Lesion(s) (L85.1) for . 07/17/2015 Not-Taking Extra-Depth Diabetic Shoes with 3 Pair Custom heat-molded multi-density innersoles Not-Taking Vitamin D Active Levothyroxine Sodium Active Night Splint AFO - L1930 1 wear at rest for 30 days Active Extra Depth Orthopedic Shoes (1 Pair) with Customized Heat Molded Multidensity Innersoles (3 Pair) as directed Dx: NIDDM/Polyneuropathy (E11.42), Hammertoe Foot Deformity (M20.41,M20.42), Preulcerative Skin Lesion(s) (L85.1 01/06/2023 Active Extra Depth Orthopedic Shoes (1 Pair) with Customized Heat Molded Multidensity Innersoles (3 Pair) as directed Dx: NIDDM/Polyneuropathy (E11.42), Hammertoe Foot Deformity (M20.41,M20.42), Preulcerative Skin Lesion(s) (L85.1 11/02/2018 Not-Taking HumuLIN R Active Cilostazol Active Lisinopril Active Lantus Active Atorvastatin Calcium Active amLODIPine Besylate Active Social History Tobacco Use: Social History Observation [...] Problem Status W/U Status Risk Notes Problem Atherosclerosis of benton arteries of the extremities ([id number]) 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, with unspecified presence of clinical manifestation (I70.203) Active confirmed Q7(A), Q8(2B), Q9(1B,2 C) Vital Signs Height 6 ft 0 in in 02/06/2024 Weight 220 lbs 02/06/2024 BMI 29.83 kg/m2 02/06/2024 Procedures Procedure Date Ordered Date Performed Result Body Sit e 90396-TORROLQ NAIL, 6 OR MORE 02/06/2024 N/A 31663-Nayk Destruction, 1-14 02/06/2024 N/A 68652-YBCQ SKIN LESIONS, OVER 4 02/06/2024 N/A Encounters Encounter Location Date Provider Diagnosis [facility] [address] [place] [address] 02/06/2024 Shelley Black 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, with unspecified presence of clinical manifestation I70.203 ; Intermittent claudication I73.9 ; Tinea unguium B35.1 ; Type 2 diabetes mellitus with diabetic polyneuropathy E11.42 ; Plantar wart B07.0 and Pain in right foot M79.671 Assessments Encounter Date Diagnosis (ICD Code) Assessment Notes Treatment Notes Treatment Clinical Notes Section Notes 02/06/2024 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, with unspecified presence of clinical manifestation (ICD-10 - I70.203) Q7(A), Q8(2B), Q9(1B,2C) 02/06/2024 Intermittent claudication (ICD-10 - I73.9) 02/06/2024 Tinea unguium (ICD-10 - B35.1) 02/06/2024 Type 2 diabetes mellitus with diabetic polyneuropathy (ICD-10 - E11.42) 02/06/2024 Plantar wart (ICD-10 - B07.0) 02/06/2024 Pain in right foot (ICD-10 - M79.671) Plan Of Treatment Pending Test Test Name Order Date 45110-KFWVLNR NAIL, 6 OR MORE 02/06/2024 72217-Hqux Destruction, 1-14 02/06/2024 67130-RYQP SKIN LESIONS, OVER 4 02/06/20 24 Next Appt Details Follow Up: 3 Months, Reason: Provider Name:Shelley Xavier , 08/30/2024 10:30:00 AM, [address] [place], [address], Procedure Notes * Category Sub-Category Detail Notes Wart Treatment Procedure Verrucae(s) were debrided to pin-point bleeding margins with sterile surgical blade, silver nitrate chemocautery applied, recomm. immune-boosting meds such as zinc, recomm. follow up with topical chemosurgical agents, Pt STILL, defers any other forms of tx (68959) Debride Nail 6-10 Nail debridement Performance o f this nail treatment by a nonprofessional would put this patients foot and overall health at risk. Therefore, debridement to affected nail(s), as described in exam, was performed extensively to reduce/remove overall nail length, girth, thickness, subungual debris, and necrotic tissue, by manual and/or electrical means through the use of a nail nipper and/or dremel-type grinder machine knife setter, to a more viable healthy nail plate or bed tissue 6-10. Silver nitrate used for any petechial bleeding as necessary. Definitive antifungal treatment options have been reviewed and discussed with the patient. The patient chooses, no pharmaceutical tx - 40669 Keratoma Treatment Parring or Cutting o f Benign Hyperkeratotic Lesion(s) ... , Q8, 61173 ( >4 Lesions) - The Benign hyperkeratotic lesions, as described above were pared, and/or cut utilizing a sterile #15 blade, tissue nippers, and/or dremel Progress Notes * Elan PATTONDOB:1940 (83 yo M)Acc No.[id number]:02/06/2024 Progress Note Patient:?Elan PATTON Provider:?Shelley Xavier DPM :1940???Age:83 Y???Sex:Male Joseph e:02/06/2024 Address:[address] [place], [place] [id number] Pcp:Waylon Diaz MD Subjective: * Chief Complaints: * ???Painful Nail(s) aggravate d by shoes and causing difficulty standing/walking.At Risk FootcareWart(s) * HPI: ???At Risk footcare:?Pt States Last PCP Visit:?Date?12/14/2023 ???Skin problems:?Pt States PCP Visit: ?DATE?12/14/2023 * Medical History:? * Surgical History:?leg surger y Catarac SX Both Eyes 11/2016LT Ear [facility] 06/2017Leg surgery- (Right) Stent Placement @ [facility] 08/2017Right eye 12/2018 * Hospitalization/Major Diagno stic Procedure:?Denies Past Hospitalization * Family History:?Mother: dece ased, diagnosed with Other specified conditions influencing health status.?Father: , diagnosed with Other specified conditions influencing health status.? Pt denies family history. * Social History:?Tobacco Use:?Tobacco Use/Smoking?Are you a:?nonsmoker ?Additional Findings: Tobacco Non-User?Current non-smoker ?Tobacco use other than smoking?Are you an other tobacco user??Yes Cigars occasionally ???Drugs/Alcohol:?Drugs?Have you used drugs other than those for medical reasons in the past 12 months??No ?Alcohol Screen?Did you have a drink containing alcohol in the past year??No ?Points?0 ?Interpretation?Negative ???Miscellaneous:?Caffeine: yes, frequency:, more than 4 cups [...] reviewed and reconciled with the patient * Allergies:?N.K.D.A.yes[Aller gimadelin Verified] Objective: * Vitals:?Ht: 6 ft 0 in, Wt: 2 20, BMI: 29.83, Shoe size: 10, BS: 138, Wt-k.79 kg. * ???Past Orders: ???Lab:HEMOGLOBIN A1C (GLYCO HEMOGLOBIN) (Order Date - 03/28/2023) (Collection Date & Time - 03/28/2023) ? Value Reference Range ?HEMOGLOBIN A1C % (HH) 8.0 * Examination: ???Ophthalmology Referral: ?DIABETES EYE EXAM?Procedure Performed:?Yes ?Date of Exam Performed?01/27/2024 ?Findings of Diabetic Eye Exam:?no retinopathy?Vascular: ?DP PULSES(B):??1/4, B/L.?PT PULSES(B):?1/4, , LEFT , 0/4 , RIGHT.?CAPILLARY FILL TIME:? delayed, all digits, B/L.?TROPHIC CONDITION-TEXTURE/ELASTICITY/TURGOR/HAIR GROWTH(B):? decreased, fragile, thin, shiny skin, with sparse to absent hair growth, B/L ,.?TEMPERTURE GRADIENT(C):? decreased, cool to cool, proximal to distal, B/L ,?.?PIGMENTATION:??pale.?EDEMA(C):?1/4, non-pitting, B/L.?CLAUDICATION(C):??admits,Right , 0-15 min.?REST PAIN:?denies, B/L.?PARESTHESIA(C):?absent, B/L.?BURNING(C):?absent, B/L.?Nails: ?NAILS are:?Elongated, overgrown, dystrophic, lytic, greater than 3mm thick, discolored and friable with crumbly malodorous subungual debris, with dull to no pain on palpation due to neuropathy, T6, T1, TA T5 T4 T9 remaining nails are elongated, overgrown, dystrophic.?Dermatologic: ?SKIN FINDINGS:?Skin exam reveals keratotic lesion(s) located at, Medial, Heel(s) B/L Midfoot B/L SUB MTH (s) 2 B/L .?VERRUCA:?Reveals a Single , multi-loculated , mosaically patterned, round, raised, flat-topped, petechial bleeding papule(s), with cauliflower appearance and interruption of skin lines, pain to lateral compression, and size estimated at??plantar Forefoot,1-2? mm diameter , RIGHT.?Orthopedic: ?MUSCLE STRENGTH:?5/5 all groups in a symmetrical fashion, B/L.?Neurological: ?SENSORY:??exam demonstrates. reduced vibration lower extremity reduced light touch sensation reduced sharp/dull pin prick discrimination , , , 5.07 monofilament test performed at plantar aspects of 5 varied sites per foot shows sensation, reduced, at absent, , B/L, Pt relates, Cont. anesthesia.?General Examination: ?GENERAL APPEARANCE:?Reveals a pleasant, alert, well nourished, well- developed, well hydrated individual, who demonstrates proper attention to hygiene/body habitus, and is in no acute distress, Pt serves as own historian for office visit today.?ORIENTED:?person, place, and time.? 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 Plan: * Treatment: 2.?Tinea unguium?Procedure: 77831-THGGMZO NAIL, 6 OR MORE 3.?Plantar wart?Procedure: 09051-Iyvq Destruction, 1-14 * Procedures:?Debride Nail 6-10:?Nail debridement?Performance of this nail treatment by a nonprofessional would put this patients foot and overall health at risk. Therefore, debridement to affected nail(s), as described in exam, was performed extensively to reduce/remove overall nail length, girth, thickness, subungual debris, and necrotic tissue, by manual and/or electrical means through the use of a nail nipper and/or dremel-type grinder machine knife setter, to a more viable healthy nail plate or bed tissue 6-10. Silver nitrate used for any petechial bleeding as necessary. Definitive antifungal treatment options have been reviewed and discussed with the patient. The patient chooses, no pharmaceutical tx - 43139.?Keratoma Treatment:?Parring or Cutting of Benign Hyperkeratotic Lesion(s)?... , Q8, 41957 ( >4 Lesions) - The Benign hyperkeratotic lesions, as described above were pared, and/or cut utilizing a sterile #15 blade, tissue nippers, and/or dremel.?Wart Treatment:?Procedure?Verrucae(s) were debrided to pin-point bleeding margins with sterile surgical blade, silver nitrate chemocautery applied, recomm. immune-boosting meds such as zinc, recomm. follow up with topical chemosurgical agents, Pt STILL, defers any other forms of tx (64742).? * Procedure Codes:?23464 DEBRI DE NAIL, 6 OR MORE, Modifiers: XS 52880 Wart Destruction, 1-14, Modifiers: XS 66897 TRIM SKIN LESIONS, OVER 4, Modifiers: Q8 * Follow Up:?3 Months * * Sign off status: Completed true * Provider:Michell Xavier DPM Date:?2023 Generated for Savannahi vikram/Vernong/eTransmitting on:?06/07/2024 11:03 AM EDT History and Physical Notes * HPI (History of Present Illness) Category Sub-Category Detail Notes Category Not es Skin problems Pt States PCP Visit: DATE: 12/14/2023 At Risk footcare Pt States Last PCP Visit: Date: Examination Category Sub-Category Detail Notes Category Not es Ingrown Nail INSPECTION: Neurological SENSORY: exam demonstrate s. reduced vibration [...] B/L Midfoot B/L SUB MTH (s) 2 B/L VERRUCA: Reveals a Single , m ulti-loculated , mosaically patterned, round, raised, flat-topped, petechial bleeding papule(s), with cauliflower appearance and interruption of skin lines, pain to lateral compression, and size estimated at plantar Forefoot,1-2 mm diameter , RIGHT Orthopedic MUSCLE STRENGTH: 5/5 all groups in a symm etrical fashion, B/L General Examination GENERAL APPEARANCE: Reveals a pleasant, alert, well nourished, well-developed, well hydrated individual, who demonstrates proper attention to hygiene/body habitus, and is in no acute distress, Pt serves as own historian for office visit today ORIENTED: person, place, and t sonya Ophthalmology Referral DIABETES EYE EXAM Procedure Perform ed:: Yes ?Date of Exam Performed: 01/27/2024 Findings of Diabetic Eye Exam:: no retin opathy Vascular DP PULSES (B): 1/4, B/L PT PULSES (B): 1/4, , LEFT , 0/4 , RIGHT CAPILLARY FILL TIME: delayed, all digits , [...] no pain on palpation due to neuropathy, T6, T1, TA T5 T4 T9 remaining nails are elongated, overgrown, dystrophic Heel Pain INSPECTION:
--- OUTSIDE RECORDS SUMMARY | 2024-06-07 11:04 | XMS_ITS ---
Author Organization [facility] Address [address] [place] [address] Care Team Providers Care Fertilizing Machine Operator Name Role Phone Waylon Diaz MD Primary Care Provider Blair Nielson Jr REASON FOR VISIT Pt no show Encounters Encounter Location Date Provider Diagnosis [facility] [address] [place] [address] 04/30/2024 Blair Espinoza Jr Plan Of Treatment No Information Progress Notes * VIDAL PEREZDOB: 0 (83 yo M)Acc No.[id number]:04/30/2024 Patient:?VIDAL PEREZ :1940???Age:83 Y???Sex:Male Address:[address] [place] [address] [place] [address] * true * Date:? Generated for Tucker sue/Erin/eTransmitting on:?06/07/2024 11:04 AM EDT
--- OUTSIDE RECORDS SUMMARY | 2024-06-07 11:04 | XMS_ITS ---
Author Organization [facility] Address [address] [facility] [place] [address] Care Team Providers Care Nutrition Tech Name Role Phone Joe BAUM, Waylon Primary Care Provider Blair Nielson Jr Encounters Encounter Location Date Provider Diagnosis [facility] [address] [facility] [place] [address] 04/30/2024 Blair Espinoza Jr Plan Of Treatment No Information Progress Notes * VIDAL PEREZ SharronDOB: 0 (84 yo M)Acc No.[id number]:04/30/2024 Progress Notes Patient:?VIDAL PEREZ Provider:?Blair Espinoza MD :1940???Age:83 Y???Sex:Male Joseph e:04/30/2024 Address:[address] [place] [address] [id number] Pcp:Walyon Diaz MD Subjective: * Chief Complaints: * ??? * Medical History:? Objective: * Vitals:? Assessment: Plan: * Treatment: * * The named appointment provid er may or may not be the originator of this progress note, and it is not deemed complete until electronically signed by the appointment provider. Sign off status: Pending * Provider:?Blair Espinoza MD Date:?0 04/30/2024 Generated for Printi ng/Faxing/eTransmitting on:?06/07/2024 11:03 AM EDT
== END 2024-06-07 10:11 | disposition home or self-care (01) ==
LOC: HO.HCS 09:27
PROVIDERS: PCP Internal Medicine; Visit Provider Internal Medicine Cardiovascular Disease
DX: I48.92 Unspecified atrial flutter (principal); I10 Essential (primary) hypertension
CPT/HCPCS: 93010; 99214; G2211

== ENCOUNTER → 2024-06-07 09:26 | Outpatient (BNVA) | payer MEDICARE, SELFPAY | PROVIDERS: PCP Internal Medicine; Visit Provider Internal Medicine Cardiovascular Disease | DX: I48.92 Unspecified atrial flutter (principal); I10 Essential (primary) hypertension | CPT/HCPCS: 93005; 99212 ==

== ENCOUNTER 2024-07-10 14:23 | Outpatient (REF) | payer MEDICARE, SELFPAY ==
--- NOTE | ~2024-07-10 | MR_ITS ---
EXAMINATION: MR BRAIN WITHOUT CONTRAST CLINICAL INFORMATION: Memory loss. COMPARISON: Correlated to CT dated April 21, 2024. TECHNIQUE: MRI of the brain was obtained using routine sequences without contrast. FINDINGS: No restricted diffusion. No acute intracranial hemorrhage, mass effect, midline shift, hydrocephalus or herniation. Gómez-white matter differentiation. There are few scattered punctate susceptibility signal in the infratentorial and supratentorial compartment. Bilateral multifocal patchy and confluent deep periventricular white matter hyperintense T2 FLAIR signal involving centrum semiovale and brown radiata, gita and right cerebellar. Prominence of the extra-axial CSF spaces cerebral sulci and ventricles. Volume loss involving the hippocampi bilaterally. Sellar/suprasellar region demonstrated no signal abnormality or masses. Craniocervical junction is intact and normal. Flow-void signal within the main cerebral vessels is normal. Polypoid mucosal thickening, right maxillary sinus. MR/MR head/brain wo con IMPRESSION: No acute stroke/nonhemorrhagic ischemia. Global cerebral atrophy. Small vessel occlusive disease. Electronically signed by: Jude Hanna MD 07/11/2024 03:34 PM EDT
--- OUTSIDE RECORDS SUMMARY | 2024-07-10 17:40 | XMS_ITS ---
Author Organization [facility] [place] Address [address] [facility] [place] [address] Care Team Providers Care Auto Brake Mechanic Name Role Phone Waylon Diaz MD Primary Care Provider Unavaila anson Black, Shelley Unavailable [phone] Allergies No Known Allergies REASON FOR VISIT [...] Ordered Date Performed Result Body Sit e 77852-HVGHTCO NAIL, 6 OR MORE 05/10/2024 N/A 04152-Tctc Destruction, 1-14 05/10/2024 N/A 92671-Nudorlnb Plate 05/10/2024 N/A 76188-TZMC SKIN LESIONS, OVER 4 05/10/2024 N/A Encounters Encounter Location Date Provider Diagnosis [facility] [place] [address] [place] [address] 05/10/2024 Shelley Black Atherosclerosis of newhalen artery of both lower extremities, with unspecified [...] Clinical Notes Section Notes 05/10/2024 Atherosclerosis of newhalen artery of both lower extremities, with unspecified [...] INSTRUCTIONS.pdf) Pending Test Test Name Order Date 91072-UCKKHIE NAIL, 6 OR MORE 05/10/2024 58759-Avqf Destruction, 1-14 05/10/2024 05432-Gxcjdvxm Plate 05/10/2024 23466-LPST SKIN LESIONS, OVER 4 05/10/19 25 Next Appt Details Follow Up: 3 Months, Reason: Provider Name:Shelley Xavier , 08/30/2024 10:30:00 AM, [address] [place], [address], Procedure Notes * Category Sub-Category Detail Notes Wart Treatment Procedure Verrucae(s) were debrided to pin-point bleeding margins with sterile surgical blade, silver nitrate chemocautery applied, recomm. immune-boosting meds such as zinc, recomm. follow up with topical chemosurgical agents, (53202), DIABETES: Any more invasive procedure to wart [...] Motrin was recommended for pain or discomfort (03011), DIABETES: Matricectomy deferred at this time due [...] of a nail nipper and/or dremel-type grinder needle tip, to a more viable healthy nail plate [...] to maintain effectiveness in symptomatic relief - 53810 Keratoma Treatment Parring or Cutting o f [...] instrumentation by the physician of record - 95211, Progress Notes * ANA ElanDOB:1940 (83 yo M)Acc No.[id number]:05/10/2024 Progress Note Patient:?Elan PATTON Provider:?Shelley Xavier DPM :1940???Age:83 Y???Sex:Male Joseph e:05/10/2024 Address:[address] [place] [address], [place] Pcp:Waylon Diaz MD Subjective: * Chief Complaints: [...] y Catarac SX Both Eyes 11/2016LT Ear [facility] 06/2017Leg surgery- (Right) Stent Placement @ [facility] 08/2017Right eye 12/2018 * Hospitalization/Major Diagno stic [...] :Chronic problem, Worse (4),Rx Management (4)???2.?Atherosclerosis of newhalen artery of both lower extremities, with unspecified presence of clinical manifestation - I70.203???Notes :Q7(A), Q8(2B), Q9(1B,2C)???3.?Intermittent claudication - I73.9???4.?Tinea unguium - B35.1???5.?Type 2 diabetes mellitus with diabetic polyneuropathy - E11.42???6.?Plantar wart - B07.0???7.?Pain in right foot - M79.671???8.?Ingrown nail - L60.0???9.?Other hammer toe(s) (acquired), left foot - M20.42???Specify :Chronic problem, Worse (4),Rx Management (4)??? Plan: * Treatment: 2.?Tinea unguium?Procedure: 79252-AKQWPGP NAIL, 6 OR MORE 3.?Type 2 diabetes mellitus with diabetic polyneuropathy?Procedure: 79426-ZDFH SKIN LESIONS, OVER 4 4.?Plantar wart?Procedure: 25309-Jqna Destruction, 1-14 5.?Ingrown nail?Procedure: 43979-Jtgdyiux Plate * Procedures:?Debride Nail 6-10:?Nail debridement?Due to [...] of a nail nipper and/or dremel-type grinder needle tip, to a more viable healthy nail plate [...] to maintain effectiveness in symptomatic relief - 64948.?Keratoma Treatment:?Parring or Cutting of Benign Hyperkeratotic Lesion(s)?(-57) [...] instrumentation by the physician of record - 25223,.?Nail Avulsion:?Location?, Lateral nail border, T5.?Anesthesia?, was deferred [...] Motrin was recommended for pain or discomfort (80204), DIABETES: Matricectomy deferred at this time due to diabetes risk.?Wart Treatment:?Procedure?Verrucae(s) were debrided to pin-point bleeding margins with sterile surgical blade, silver nitrate chemocautery applied, recomm. immune-boosting meds such as zinc, recomm. follow up with topical chemosurgical agents, (05193), DIABETES: Any more invasive procedure to wart deferred due to diabetes risk, CIRCULATION: Any more invasive procedure to wart deferred due to circulation risk.? * Procedure Codes:?15126 DEBRI DE NAIL, 6 OR MORE, Modifiers: XS 85929 Avulsion Plate, Modifiers: T5 24427 Wart Destruction, 1-14, Modifiers: XS 88771 TRIM SKIN LESIONS, OVER 4, Modifiers: Q8 [...] Xavier DPM Date:?2024 Generated for Tucker sue/Erin/Halina on:?07/10/2024 05:40 PM EDT History and Physical Notes * HPI [...] plantar Forefoot,1-2 mm diameter , RIGHT Orthopedic FOOTWEAR EVALUATION: worn, non-s upportive, shoe gear properties exacerbate patient's foot/toe deformity [...]
--- OUTSIDE RECORDS SUMMARY | 2024-07-10 17:40 | XMS_ITS | Patient Health Record ---
[facility] cedric NajeraCristino Address [address] [facility] [place] [address] Care Team Providers Care General Foundry Worker Name Role Phone Waylon Diaz MD Primary Care Provider Abiola Shelley Morton Unavailable [phone] Allergies No Known Allergies Results Component Value [...] Problem Acquired hammer toe of right foot (9921822113980599) Other hammer toe(s) (acquired), right foot (M20.41) Active confirmed Problem Acquired hammer toe of left foot (1786837570608691) Other hammer toe(s) (acquired), left foot (M20.42) Active confirmed Problem Polyneuropathy due to type 2 diabetes mellitus (836053845) Type 2 diabetes mellitus with diabetic polyneuropathy (E11.42) Active confirmed Problem Intermittent claudication (32269101) Intermittent claudication (I73.9) Active confirmed Problem Atherosclerosis of nuiqs[place] arteries of the extremities (797066636546345) Atherosclerosis of n[place]qs[place] artery of both lower extremities, with unspecified presence of clinical manifestation (I70.203) Active confirmed Q7(A), Q8(2B), Q9(1B,2 C) Problem Interstitial myositis (39725599) Interstitial myositis of left foot (M60.172) Active confirmed Vital Signs Blood pressure diastolic 80 mm Hg 05/10/2024 Height 6 ft 0 in in 05/10/2024 Blood pressure systolic 120 mm Hg 05/10/2024 Weight 178 lbs 05/10/2024 BMI 24.14 kg/m2 05/10/2024 Procedures Procedure Date Ordered Date Performed Result Body Sit e 00694-IUHCYYA NAIL, 6 OR MORE 07/25/2023 N/A 61286-Nthn Destruction, 1-07/25/2023 N/A 96427-XRMD SKIN LESIONS, OVER 4 07/25/2023 N/A 27587-EXOFBUU NAIL, 6 OR MORE 10/20/2023 N/A 27169-Aldi Destruction, 1-10/20/2023 N/A 13888-HRZJ SKIN LESIONS, OVER 4 10/20/2023 N/A 51300-TQFJZVX NAIL, 6 OR MORE 02/06/2024 N/A 18449-Sawa Destruction, 1-14 02/06/2024 N/A 33793-DOFN SKIN LESIONS, OVER 4 02/06/2024 N/A 84232-BFEZHDF NAIL, 6 OR MORE 05/10/2024 N/A 90367-Qweg Destruction, 1-14 05/10/2024 N/A 06385-Edpfpkqb Plate 05/10/2024 N/A 37873-CZFG SKIN LESIONS, OVER 4 05/10/2024 N/A Encounters Encounter Location Date Provider Diagnosis [facility] [address] [place] [address] 07/25/2023 Shelley Black Plantar fasciitis of left foot M72.2 ; Type 2 diabetes mellitus with diabetic polyneuropathy E11.42 ; Pain in left foot M79.672 ; Calcaneal spur, left foot M77.32 ; Interstitial myositis of left foot M60.172 ; Bursitis of left foot M77.52 ; Tinea unguium B35.1 ; Unspecified atherosclerosis of nuiqs[place] arteries of extremities, bilateral legs I70.203 ; Plantar wart B07.0 and Pain in right foot M79.[address] [address] 10/20/2023 Shelley Black Plantar fasciitis of left foot M72.2 ; Intermittent claudication I73.9 ; Type 2 diabetes mellitus with diabetic polyneuropathy E11.42 ; Pain in left foot M79.672 ; Calcaneal spur, left foot M77.32 ; Interstitial myositis of left foot M60.172 ; Bursitis of left foot M77.52 ; Tinea unguium B35.1 ; Unspecified atherosclerosis of nuiqs[place] arteries of extremities, bilateral legs I70.203 ; Plantar wart B07.0 and Pain in right foot M79.[address] [address] 02/06/2024 Shelley Black Atherosclerosis of nuiqs[place] artery of both lower extremities, with unspecified presence of clinical manifestation I70.203 ; Intermittent claudication I73.9 ; Tinea unguium B35.1 ; Type 2 diabetes mellitus with diabetic polyneuropathy E11.42 ; Plantar wart B07.0 and Pain in right foot M79.[address] [address] 05/10/2024 Shelley Black Atherosclerosis of n[place]qs[place] artery of both lower extremities, with unspecified presence of clinical manifestation I70.203 ; Other hammer toe(s) (acquired), right foot M20.41 ; Intermittent claudication I73.9 ; Tinea unguium B35.1 ; Type 2 diabetes mellitus with diabetic polyneuropathy E11.42 ; Plantar wart B07.0 ; Pain in right foot M79.671 ; Ingrown nail L60.0 and Other hammer toe(s) (acquired), left foot M20.42 [facility] [address] [address] 11/03/2023 Shelley Duc Assessments Encounter Date Diagnosis (ICD Code) Assessment Notes Treatment Notes Treatment Clinical Notes Section Notes 07/25/2023 Type 2 diabetes mellitus with diabetic polyneuropathy (ICD-10 - E11.42) 07/25/2023 Plantar fasciitis of left foot (ICD-10 - M72.2) 10/20/2023 Intermittent claudication (ICD-10 - I73.9) 10/20/2023 Plantar fasciitis of left foot (ICD-10 - M72.2) Resolved 02/06/2024 Intermittent claudication (ICD-10 - I73.9) 02/06/2024 Atherosclerosis of nui[place] artery of both lower extremities, with unspecified presence of clinical manifestation (ICD-10 - I70.203) Q7(A), Q8(2B), Q9(1B,2C) 05/10/2024 Other hammer toe(s) (acquired), right foot (ICD-10 - M20.41) Patient Educated with: DIABETIC FOOT CARE INSTRUCTIONS. pdf (DIABETIC FOOT CARE INSTRUCTIONS. pdf) 05/10/2024 Atherosclerosis of nuiqs[place] artery of both lower extremities, with unspecified [...] (ICD-10 - B35.1) 07/25/2023 Unspecified atherosclerosis of nuiqs[place] arteries of extremities, bilateral legs (ICD-10 - I70.203) 05/10/2024 Ingrown nail (ICD-10 - L60.0) 05/10/2024 Other hammer toe(s) (acquired), left foot (ICD-10 - M20.42) 07/25/2023 Plantar wart (ICD-10 - B07.0) 10/20/2023 Unspecified atherosclerosis of nuiqs[place] arteries of extremities, bilateral legs (ICD-10 - I70.203) 10/20/2023 Plantar wart (ICD-10 - B07.0) 07/25/2023 Pain in right foot (ICD-10 - M79.671) 10/20/2023 Pain in right foot (ICD-10 - M79.671) Plan Of Treatment Pending Test Test Name Order Date Hemoglobin A1c 07/20/2018 14466-CSGVOBI NAIL, 6 OR MORE 05/10/2024 98960-JHJAOWB NAIL, 6 OR MORE 07/25/2023 52599-XRHCCLG NAIL, 6 OR MORE 10/20/2023 93071-JXYKQDY NAIL, 6 OR MORE 02/06/2024 03515-NFEJVXX NAIL, 6 OR MORE 04/22/2022 24787-PTIISGY NAIL, 6 OR MORE 07/29/2022 15209-MVVQDBG NAIL, 6 OR MORE 01/06/2023 20348-IQIXBXR NAIL, 6 OR MORE 04/21/2023 43022-LRNJTLF NAIL, 6 OR MORE 12/03/2010 87693-DWOCEDX NAIL, 6 OR MORE 03/08/2011 19398-JIUXLDE NAIL, 6 OR MORE 06/09/2011 97178-OLHDEWR NAIL, 6 OR MORE 09/09/2011 55910-VYGOYNB NAIL, 6 OR MORE 12/13/2011 42845-OMNMFUG NAIL, 6 OR MORE 03/13/2012 25838-XXHKGUF NAIL, 6 OR MORE 06/12/2012 68821-VAOCDDZ NAIL, 6 OR MORE 12/18/2012 19190-XEIGKUF NAIL, 6 OR MORE 04/02/2013 67412-NNZCWFB NAIL, 6 OR MORE 09/13/2012 51956-PZDLKXN NAIL, 6 OR MORE 06/25/2013 00008-EITPRZD NAIL, 6 OR MORE 10/01/2013 55144-LFUMIZR NAIL, 6 OR MORE 12/31/2013 91273-CSTPMAA NAIL, 6 OR MORE 04/10/2014 17371-VXYGVYI NAIL, 6 OR MORE 07/08/2014 60946-YCFWORF NAIL, 1-5 10/14/2014 07070-CFRWGPT NAIL, 1-5 04/17/2015 01454-JIRGFKR NAIL, 1-5 07/17/2015 92247-WZSKVIR NAIL, 1-5 01/15/2015 27097-YSNIRYQ NAIL, 1-5 10/20/2015 14368-WYBNGUW NAIL, 1-5 01/22/2016 44845-UIHTBOL NAIL, 1-5 04/22/2016 32015-ZDYNZFB NAIL, 1-5 07/19/2016 63688-HSOQHMW NAIL, 1-5 10/15/2016 26396-MPLPOFZ NAIL, 1-5 01/10/2017 71053-ITXSMLG NAIL, 1-5 04/18/2017 61165-SIYUUBW NAIL, 1-5 07/18/2017 41565-CPPHKOU NAIL, 1-5 10/17/2017 68096-QYWBBIM NAIL, 04-0101/16/2018 62360-XOBLIPD NAIL, 04-0112/28/2021 75643-JZMUSJJ NAIL, 04-0106/22/2021 71061-CVQZIAO NAIL, 04-0109/21/2021 90377-PVROHRK NAIL, 04-0104/20/2018 17749-GTPPAOQ NAIL, 04-0107/20/2018 79896-TQMIAJX NAIL, 04-0111/02/2018 46821-XKPDTJR NAIL, 04-0102/08/2019 40670-LLKPOAD NAIL, 04-0105/17/2019 67925-GPXWGUN NAIL, 04-0112/24/2019 94262-VBOXYGO NAIL, 04-0109/13/2019 06904-ISZODUL NAIL, 04-0103/31/2020 36266-KCWBXWB NAIL, 04-0107/16/2020 81893-TQDAEPY NAIL, 04-0110/16/2020 45634-DJUSFYP NAIL, 04-0102/16/2021 76964-Voui Destruction, 04-1012/24/2019 52116-Niuq Destruction, 04-1007/29/2022 05821-Ryyj Destruction, 04-1001/06/2023 57233-Yuun Destruction, 04-1007/25/2023 39664-Ruue Destruction, 04-1010/20/2023 00822-Hlzu Destruction, 04-1002/06/2024 83536-Ctsw Destruction, 04-1005/10/2024 79146-Ulvhurve Plate 05/10/2024 56507-Hdwoxufz Plate 02/16/2021 10211-Kxgwaecy Plate 02/08/2019 48151-Bsmgfqxz Plate 04/20/2018 08544-Tsistxig Plate 07/18/2017 42290-Vfujqxci Plate 06/25/2013 80222-Dzwdimrk Plate 01/15/2015 22187-Szgfsojp Plate 10/14/2014 66869-Ixwzlipt Plate 07/08/2014 73356-Mbndakai Plate 04/10/2014 80937-Ihwkmcuk Plate 12/31/2013 89753-Nhvlhoaz Plate 10/01/2013 46862-Skwccgbm Plate 09/13/2012 91280-Whauptsv Plate 12/18/2012 43955-Vqgwdxnq Plate 04/02/2013 22867-Brdjgeek Plate 06/12/2012 56702-Lpyyenbo Plate 03/13/2012 83414-Cxyfjvie Plate 12/13/2011 41446-Jujjeugs Plate 09/09/2011 49027- Debride <25 sq cm 01/22/2016 09753 I&D ABSCESS- SIMPLE,SINGLE 024 94124-GZBX SKIN LESIONS, OVER 4 01/07/20 83188-PQHA SKIN LESIONS, OVER 4 07/25/19 74698-ZTWU SKIN LESIONS, OVER 4 04/21/19 02320-QQLG SKIN LESIONS, OVER 4 04/22/19 56261-XBNE SKIN LESIONS, OVER 4 07/30/19 20128-LSGC SKIN LESIONS, OVER 4 05/10/19 63165-CFEV SKIN LESIONS, OVER 4 02/06/20 67741-CFIP SKIN LESIONS, OVER 4 10/20/19 69636-QBOO SKIN LESIONS, 2 TO 4 12/29/19 28564-WDTQ SKIN LESIONS, 2 TO 4 09/22/19 34934-AXOK SKIN LESIONS, 2 TO 4 07/21/19 19 14622-KHIA SKIN LESIONS, 2 TO 4 11/03/19 19 25925-HSFF SKIN LESIONS, 2 TO 4 02/09/20 19 95736-HLJT SKIN LESIONS, 2 TO 4 09/13/19 20 63151-LSAV SKIN LESIONS, 2 TO 4 05/17/19 20 15892-QKAQ SKIN LESIONS, 2 TO 4 06/23/19 22 65050-QBJQ SKIN LESIONS, 2 TO 4 02/17/20 21 02170-EIPF SKIN LESIONS, 2 TO 4 10/17/19 21 53049-TVJE SKIN LESIONS, 2 TO 4 03/31/19 21 51365-XNXI SKIN LESIONS, 2 TO 4 07/17/19 21 84632-GEGC SKIN LESIONS, 2 TO 4 12/24/19 20 08717-NSHY SKIN LESIONS, 2 TO 4 01/22/20 16 73027-EJFT SKIN LESIONS, 2 TO 4 07/20/19 17 64336-BCZX SKIN LESIONS, 2 TO 4 04/22/19 17 50070-OWDR SKIN LESIONS, 2 TO 4 10/20/19 16 18590-DYWR SKIN LESIONS, 2 TO 4 01/21/20 16 62631-TACC SKIN LESIONS, 2 TO 4 07/17/19 16 38884-DCDR SKIN LESIONS, 2 TO 4 10/18/19 18 65808-XNXP SKIN LESIONS, 2 TO 4 04/20/19 19 27705-KFJM SKIN LESIONS, 2 TO 4 01/17/20 18 28875-LSZM SKIN LESIONS, 2 TO 4 07/19/19 18 95441-BGSI SKIN LESIONS, 2 TO 4 04/18/19 18 99477-EHMT SKIN LESIONS, 2 TO 4 01/11/20 17 53931-QBYQ SKIN LESIONS, 2 TO 4 10/16/19 17 36948-BNTC SKIN LESIONS, 2 TO 4 12/13/19 12 95512-HECS SKIN LESIONS, 2 TO 4 09/09/19 12 76836-OXDN SKIN LESIONS, 2 TO 4 03/13/20 12 85785-CFHT SKIN LESIONS, 2 TO 4 04/02/19 14 08043-VWPS SKIN LESIONS, 2 TO 4 06/26/19 14 01136-WYQS SKIN LESIONS, 2 TO 4 10/02/19 14 71785-SYEN SKIN LESIONS, 2 TO 4 01/01/20 14 92057-CAHZ SKIN LESIONS, 2 TO 4 04/10/19 15 10089-QHWI SKIN LESIONS, 2 TO 4 07/09/19 15 79454-BKIE SKIN LESIONS, 2 TO 4 10/15/19 15 81696-POCF SKIN LESIONS, 2 TO 4 01/16/20 15 H5613-AKPVBGVX DYSTROPHIC NAILS ANY # X7446-LKLZWIVN DYSTROPHIC NAILS ANY # R4953-VPRAUDEW DYSTROPHIC NAILS ANY # I5021-KSMDPVYG DYSTROPHIC NAILS ANY H2413-BALLNCOK DYSTROPHIC NAILS ANY # L5254-WNRWWFQZ DYSTROPHIC NAILS ANY # L5987-KJRXNRKK DYSTROPHIC NAILS ANY # W5128-KWEJSLOM DYSTROPHIC NAILS ANY # A4034-AERERREW DYSTROPHIC NAILS ANY # F5810-OUNGWBSY DYSTROPHIC NAILS ANY # I6074-FQMVMYAN DYSTROPHIC NAILS ANY # B6107-WQIPTGZB DYSTROPHIC NAILS ANY # Z1175-YCUEXFKJ DYSTROPHIC NAILS ANY # F9679-DKSOTJVW DYSTROPHIC NAILS ANY # M2262-CENWQGJJ DYSTROPHIC NAILS ANY # S0467-VQVBVIAC DYSTROPHIC NAILS ANY # D6056-OOCRFKJM DYSTROPHIC NAILS ANY # T8621-IBWEIKZB DYSTROPHIC NAILS ANY # V7684-JSJTNMEM DYSTROPHIC NAILS ANY # F9195-MVKJBVTY DYSTROPHIC NAILS ANY # Q7877-HJSIAWCL DYSTROPHIC NAILS ANY # Q1825-PBUUKCKL DYSTROPHIC NAILS ANY # I1664-BZOLDTRG DYSTROPHIC NAILS ANY # O2522-FEFFNTNV DYSTROPHIC NAILS ANY # H2617-EWFLEHDG DYSTROPHIC NAILS ANY # 87450,H3924-HRF TENDON SHEATH/LIGAMENT 0 05/19/2023 49734,V9880-NTW TENDON SHEATH/LIGAMENT 0 08/24/2018 Next Appt Details Provider Name:Shelley Hernandez Duc , 08/30/2024 10:30:00 AM, [address] [place], [address], Insurance Providers Payer Name Payer Address Payer Phone Subscriber Number Group Number Insured Name Patient Relationship to Insured Coverage Start Date Coverage End Date Medicare National Govt [employer] [address] [place] [address] [id number] Elan Patton Self - patient is the insured [employer] Blue [employer] [address] [place] [address] [phone] [id number] Elan Patton Self - patient is the insured 2 Medical (General) History Medical History History ICD Code mumps diabetic type ll chicken pox Retinopathy Surgical History Surgery Date(Month/Year) leg surgery Catarac SX Both Eyes 11/2016 LT Ear [facility] 06/2017 Leg surgery- (Right) Stent Placement @ B 08/2017 Right eye 12/2018
--- OUTSIDE RECORDS SUMMARY | 2024-07-10 17:40 | XMS_ITS ---
Author Organization [facility] Address [address] [place] [address] Care Team Providers Care It Help Desk Manager Name Role Phone Joe BAUM, Waylon Primary Care Provider Shelley Julian [phone] Encounters Encounter Location Date Provider Diagnosis [address] [address] 01/26/2024 Shelley Xavier Plan Of Treatment Next Appt Details Provider Name:Shelley Xavier , 08/30/2024 10:30:00 AM, [address] [place], [address], Progress Notes * ABDI ElanDOB:1940 (84 yo M)Acc No.[id number]:01/26/2024 Progress Note Patient:?Elan PATTON Provider:?Shelley Xavier DPM :1940???Age:83 Y???Sex:Male Joseph e:01/26/2024 Address:[address] [place], [place] [address] Pcp:Waylon Diaz MD Subjective: * Chief Complaints: [...] Xavier DPM Date:?2023 Generated for Tucker sue/Erin/Halina on:?07/10/2024 05:40 PM EDT
--- OUTSIDE RECORDS SUMMARY | 2024-07-10 17:40 | XMS_ITS ---
Author Organization [facility] Address [address] [place] [address] Care Team Providers Care Floor Sander Name Role Phone Joe BAUM, Waylon Primary Care Provider Blair Nielson Jr [phone] Encounters Encounter Location Date Provider Diagnosis [facility] [address] [place] [address] 04/30/2024 Blair Espinoza Jr Plan Of Treatment Next Appt Details Provider Name:Blair rodriguez Jr, 09/27/2024 02:55:00 PM, [address], [address], [place], [address], Progress Notes * VIDAL PEREZDOB: 0 (84 yo M)Acc No.[id number]:04/30/2024 Progress Notes Patient:?VIDAL PEREZ Provider:?Blair Espinoza MD :1940???Age:83 Y???Sex:Male Joseph e:04/30/2024 Address:[address] [place] [address] [phone] Pcp:Waylon Diaz MD Subjective: * Chief Complaints: * ??? * Medical History:? Objective: * Vitals:? Assessment: Plan: * Treatment: * * The named appointment provid er may or may not be the originator of this progress note, and it is not deemed complete until electronically signed by the appointment provider. Sign off status: Pending * Provider:?Blair Espinoza MD Date:?0 04/30/2024 Generated for Tucker sue/Erin/Halina on:?07/10/2024 05:39 PM EDT
--- OUTSIDE RECORDS SUMMARY | 2024-07-10 17:40 | XMS_ITS ---
Author Organization [facility] Address [address] [facility] [place] [address] Care Team Providers Care Inter Com Installer Name Role Phone Waylon Diaz MD Primary Care Provider Unavaila Shelley Morton Unavailable [phone] Allergies No Known Allergies REASON FOR VISIT [...] W/U Status Risk Notes Problem Atherosclerosis of lumbee arteries of the extremities (033417548953394) Atherosclerosis of lumbee artery of both lower extremities, with unspecified presence of clinical manifestation (I70.203) Active confirmed Q7(A), Q8(2B), Q9(1B,2 C) Vital Signs Height 6 ft 0 in in 02/06/2024 Weight 220 lbs 02/06/2024 BMI 29.83 kg/m2 02/06/2024 Procedures Procedure Date Ordered Date Performed Result Body Sit e 05953-HZTHTZJ NAIL, 6 OR MORE 02/06/2024 N/A 96869-Odsb Destruction, 1-14 02/06/2024 N/A 59293-QUGK SKIN LESIONS, OVER 4 02/06/2024 N/A Encounters Encounter Location Date Provider Diagnosis [facility] [place] [address] [place] [address] 02/06/2024 Shelley Black Atherosclerosis of lumbee artery of both lower extremities, with unspecified presence of clinical manifestation I70.203 ; Intermittent claudication I73.9 ; Tinea unguium B35.1 ; Type 2 diabetes mellitus with diabetic polyneuropathy E11.42 ; Plantar wart B07.0 and Pain in right foot M79.671 Assessments Encounter Date Diagnosis (ICD Code) Assessment Notes Treatment Notes Treatment Clinical Notes Section Notes 02/06/2024 Atherosclerosis of lumbee artery of both lower extremities, with unspecified presence of clinical manifestation (ICD-10 - I70.203) Q7(A), Q8(2B), Q9(1B,2C) 02/06/2024 Intermittent claudication (ICD-10 - I73.9) 02/06/2024 Tinea unguium (ICD-10 - B35.1) 02/06/2024 Type 2 diabetes mellitus with diabetic polyneuropathy (ICD-10 - E11.42) 02/06/2024 Plantar wart (ICD-10 - B07.0) 02/06/2024 Pain in right foot (ICD-10 - M79.671) Plan Of Treatment Pending Test Test Name Order Date 35685-EKTKQBK NAIL, 6 OR MORE 02/06/2024 68100-Pcpr Destruction, 1-14 02/06/2024 35866-WZPA SKIN LESIONS, OVER 4 02/06/20 24 Next Appt Details Follow Up: 3 Months, Reason: Provider Name:Shelley Xavier , 08/30/2024 10:30:00 AM, [address] [place], [address], Procedure Notes * Category Sub-Category Detail Notes Wart Treatment Procedure Verrucae(s) were debrided to pin-point bleeding margins with sterile surgical blade, silver nitrate chemocautery applied, recomm. immune-boosting meds such as zinc, recomm. follow up with topical chemosurgical agents, Pt STILL, defers any other forms of tx (87554) Debride Nail 6-10 Nail debridement Performance o [...] a nail nipper and/or dremel-type grinder machine setter, to a more viable healthy nail plate or bed tissue 6-10. Silver nitrate used for any petechial bleeding as necessary. Definitive antifungal treatment options have been reviewed and discussed with the patient. The patient chooses, no pharmaceutical tx - 84172 Keratoma Treatment Parring or Cutting o f Benign Hyperkeratotic Lesion(s) ... , Q8, [address]482 ( >4 Lesions) - The Benign hyperkeratotic lesions, as described above were pared, and/or cut utilizing a sterile #15 blade, tissue nippers, and/or dremel Progress Notes * Elan PATTONDOB:1940 (83 yo M)Acc No.[id number]:02/06/2024 Progress Note Patient:?Elan PATTON Provider:?Shelley Xavier DPM :1940???Age:83 Y???Sex:Male Joseph e:02/06/2024 Address:[address] [place], [place] [address] Pcp:Waylon Diaz MD Subjective: * Chief Complaints: * ???Painful Nail(s) aggravate d by shoes and causing difficulty standing/walking.At Risk FootcareWart(s) * HPI: ???At Risk footcare:?Pt States Last PCP Visit:?Date?12/14/2023 ???Skin problems:?Pt States PCP Visit: ?DATE?12/14/2023 * Medical History:? * Surgical History:?leg surger y Catarac SX Both Eyes 11/2016LT [facility] 06/2017Leg surgery- (Right) Stent Placement @ [...] and reconciled with the patient * Allergies:?N.K.D.A.yes[Aller giamdelin Verified] Objective: * Vitals:?Ht: 6 ft 0 [...] * Assessment: 1.?Intermittent claudication - I73.9???2.?Atherosclerosis of lumbee artery of both lower extremities, with unspecified presence of clinical manifestation - I70.203 (Primary)???Notes :Q7(A), Q8(2B), Q9(1B,2C)???3.?Tinea unguium - B35.1???4.?Type 2 diabetes mellitus with diabetic polyneuropathy - E11.42???5.?Plantar wart - B07.0???6.?Pain in right foot - M79.671??? Plan: * Treatment: 2.?Tinea unguium?Procedure: 29879-ZNGKISX NAIL, 6 OR MORE 3.?Plantar wart?Procedure: 73269-Qpay Destruction, 1-14 * Procedures:?Debride Nail 6-10:?Nail debridement?Performance [...] a nail nipper and/or dremel-type grinder machine setter, to a more viable healthy nail plate or bed tissue 6-10. Silver nitrate used for any petechial bleeding as necessary. Definitive antifungal treatment options have been reviewed and discussed with the patient. The patient chooses, no pharmaceutical tx - 79920.?Keratoma Treatment:?Parring or Cutting of Benign Hyperkeratotic Lesion(s)?... , Q8, 52765 ( >4 Lesions) - The Benign hyperkeratotic lesions, as described above were pared, and/or cut utilizing a sterile #15 blade, tissue nippers, and/or dremel.?Wart Treatment:?Procedure?Verrucae(s) were debrided to pin-point bleeding margins with sterile surgical blade, silver nitrate chemocautery applied, recomm. immune-boosting meds such as zinc, recomm. follow up with topical chemosurgical agents, Pt STILL, defers any other forms of tx (50962).? * Procedure Codes:?12184 DEBRI DE NAIL, 6 OR MORE, Modifiers: XS 14405 Wart Destruction, 1-14, Modifiers: XS 51015 TRIM SKIN LESIONS, OVER 4, Modifiers: Q8 * Follow Up:?3 Months * * Sign off status: Completed true * Provider:Michell Xavier DPM Date:?2023 Generated for Savannahi vikram/Fanikg/eTransmitting on:?07/10/2024 05:40 PM EDT History and Physical [...]
--- OUTSIDE RECORDS SUMMARY | 2024-07-10 17:40 | XMS_ITS | Patient Health Record ---
Author Organization [facility] Address [address] [place] [address] Care Team Providers Care Web Feeder Name Role Phone Waylon Diaz MD Primary Care Provider Blair Nielson Jr Unavailable Results Component Value Reference Range Notes Prothrombin Time INR Reviewed date:04/23/2024 04:11:29 PM Interpretation: Performing Lab:[facility], [address] [place] [address] Notes/Report: Prothrombin Time 13.9 10.9-12.4 SEC [employer]NATIONAL [...] (Not yet reviewed by provider) Interpretation: Performing Lab:[facility], [address] [place] [address] Notes/Report: --- Name: Vidal Patton Age/Sex: 83/M : 1940 Unit#: [id number] Attend Dr: Lorna Julien NP Re04/21/24 Status : ADM IN Location: [facility] 444-2 Disch: --- SPEC : [id number] RECD: 04/23/241505 STATUS: VANI CONROY NUM: [id number] RHONDA: 04/23/24-[address] [facility] [address]: Vidal Olivera MD ENTERED: 04/23/24- [...] AB/PAS stains Copies To: Waylon Diaz MD [address] [address] Lorna Julien NP [address] [place] [address] CONTINUED ON NEXT PAGE --- Name: Vidal Patton Age/Sex: 83/M : 1940 Unit#: [id number] Attend Dr: Lorna Julien PRODUCTION CONTROL ANALYST Re04/21/24 Status : ADM IN Location: [facility] 444-2 Disch: --- SPEC : [id number] RECD: 04/23/241505 STATUS: VANI CONROY NUM: [id number] RHONDA: 04/23/24-[address] [facility] [address]: Vidal Olivera MD ENTERED: 04/23/24 14 SP TYPE: Surgical OTHR DR: Waylon Diaz MD, Jackie NP ORDERED: HE Stain/3, Gross Micro L4, IHC, Special st. 2, H. pylori, AB/PAS Copies To: (Continued) Vidal Olivera MD [facility] [address] [place] [address] --- Signed (signature on file) Turner [...] Problem Status W/U Status Risk Notes Problem [id number] Colon cancer screening (Z12.11) Active confirmed Problem Anorexia (39927825) Anorexia (R63.0) Active confirmed Encounters Encounter Location Date Provider Diagnosis [facility] [address] [place] [address] 04/30/2024 Blair Espinoza Jr Plan Of Treatment Pending Test Test Name Order Date Pathology 04/23/2024 Next Appt Details Provider Name:Blair rodriguez Jr, 09/27/2024 02:55:00 PM, [address], [address], [place], [address], Insurance Providers Payer Name Payer Address Payer Phone Subscriber Number Group Number Insured Name Patient Relationship to Insured Coverage Start Date Coverage End Date MEDICARE OF [place] [address] [place] [id number] VIDAL PATTON Self - patient is the insured [employer] CLAIMS [address] [place] [address] [phone] [id number] VIDAL PATTON Self - patient is the insured Medical (General) History Medical History History ICD Code hypertension diabetes mellitus peripheral vascular disease elevated cholesterol Surgical History Surgery Date(Month/Year) stent placement-right leg hernia repair cataract removal
--- OUTSIDE RECORDS SUMMARY | 2024-07-10 17:40 | XMS_ITS ---
Author Organization [facility] Address [address] [place] [address] Care Team Providers Care Box Office Clerk Name Role Phone Waylon Diaz MD Primary Care Provider Blair Nielson Jr REASON FOR VISIT Pt no show Encounters Encounter Location Date Provider Diagnosis [facility] [address] [place] [address] 04/30/2024 Blair Espinoza Jr Plan Of Treatment Next Appt Details Provider Name:Blair rodriguez Jr, 09/27/2024 02:55:00 PM, [address], [address], [place], [address], Progress Notes * VIDAL PEREZDOB: 0 (83 yo M)Acc No.[id number]:04/30/2024 Patient:?VIDAL PEREZ :1940???Age:83 Y???Sex:Male Address:[address] [place] [address] LISE BARRIGA Gerald [place] [address] * true * Date:? Generated for Printi ng/Faxing/eTransmitting on:?07/10/2024 05:40 PM EDT
== END 2024-07-10 14:24 | disposition home or self-care (01) ==
LOC: HO.MRI 14:23
PROVIDERS: PCP Internal Medicine; Visit Provider Internal Medicine
DX: R41.3 Other amnesia (principal)
CPT/HCPCS: 70551

== ENCOUNTER → 2024-07-10 14:44 | Outpatient (BNV) | payer MEDICARE, SELFPAY | PROVIDERS: PCP Internal Medicine; Visit Provider Radiology Diagnostic Radiology | DX: I63.9 Cerebral infarction, unspecified (principal) | CPT/HCPCS: 70551 ==

== ENCOUNTER 2024-07-15 13:35 | Emergency (ER) | payer MEDICARE, SELFPAY ==
--- NOTE | ~2024-07-15 | CT_ITS ---
CLINICAL HISTORY: fall, collared CT cervical spine without contrast Comparison: CT/SR - CT CERVICAL SPINE WO IV CON - 04/21/24 16:48 EST Findings: Mild kyphosis seen within the midcervical spine. No fracture or focal bony malalignment is identified. No prevertebral soft tissue swelling. Wfoo-mh-hlxucgfk multilevel degenerative disc disease and degenerative facet disease throughout the cervical spine. Upper airway is patent. No apical pneumothorax. Dense calcification of the bilateral carotid arteries. IMPRESSION: 1. No acute fracture. 2. Multilevel degenerative changes seen previously. 3. Findings suggestive of muscle spasm. This document has been electronically signed by: Aris Palumbo MD on 07/15/2024 15:39:52
--- NOTE | ~2024-07-15 | XR_ITS ---
CLINICAL HISTORY: fall, bruising to fingertips Exam: AP, lateral, and oblique views of the left hand. Comparison: None. Findings: Alignment of the metacarpophalangeal joints is anatomic. No acute fractures. Multifocal degenerative change throughout the wrist and hand, especially at the 1st carpometacarpal joints along the interphalangeal joints of the index through small fingers. No acute periosteal reaction. Impression: Multifocal degenerative change without acute fracture. This document has been electronically signed by: Aris Palumbo MD on 07/15/2024 15:41:53
--- NOTE | ~2024-07-15 | CT_ITS ---
CLINICAL HISTORY: fall, dizzy CT head without contrast Comparison: MR/[place]/SR - MR HEAD/BRAIN WO CON - 07/10/24 14:[address]/SR - CT HEAD/BRAIN WO IV CON - 04/21/24 16:48 EST Findings: Generalized cerebral and cerebellar atrophy is again identified. The size and shape of the ventricular system is within normal limits for this degree of atrophy. Moderate areas of low attenuation are identified within the periventricular and deep white matter. No midline shift or mass effect. No intracranial hemorrhage. No calvarial fractures. Mhju-qi-uhczrwyy mucosal thickening within the right maxillary sinus. IMPRESSION: No fracture or intracranial hemorrhage. This document has been electronically signed by: Aris Palumbo MD on 07/15/2024 15:38:07
--- NOTE | ~2024-07-15 | XR_ITS ---
CLINICAL HISTORY: fall, bruising to fingertips Exam: AP, lateral, and oblique views of the right hand. Comparison: Left hand radiographs from same day. Findings: No acute fractures. Multifocal degenerative change throughout the hand and wrist, especially involving the distal interphalangeal joints of the index and long fingers. No erosions. Impression: No acute fracture. This document has been electronically signed by: Aris Palumbo MD on 07/15/2024 15:42:13
[2024-07-15 13:54] VITALS: BP 167/44; PULSE 64; RESP 18; TEMP 36.7; O2SAT 98; BMI 24.2
--- NOTE | 2024-07-15 13:58 | ECG_ITS ---
Test Reason : SYNCOPE Blood Pressure : */* mmHG Vent. Rate : 59 BPM Atrial Rate : 59 BPM P-R Int : 188 ms QRS Dur : 106 ms QT Int : 448 ms P-R-T Axes : 81 25 31 degrees QTcB Int : 443 ms Sinus bradycardia Sinus Arrhythmia Normal ECG When compared with ECG of 21-Apr-2024 16:35, No significant changes seen Referred By: Generic ED Physician Electronically Signed By: RAKEL BURRIS
[2024-07-15 14:11] LABS: Glucose, Whole Blood 75 mg/dL (60-115)
[2024-07-15 14:15] LABS: MANUAL DIFF FLAG NO
--- OUTSIDE RECORDS SUMMARY | 2024-07-15 14:16 | XMS_ITS | Patient Health Record ---
Author Organization [facility] Address [address] [place] [address] Care Team Providers Care Precast Concrete Products Installer Name Role Phone Waylon Diaz MD Primary Care Provider Blair Nielson Jr Unavailable Results Component Value Reference Range Notes Prothrombin Time INR Reviewed date:04/23/2024 04:11:29 PM Interpretation: Performing Lab:[facility], [address] [place] [phone] Notes/Report: Prothrombin Time 13.9 10.9-12.4 SEC INTERNATIONAL [...] (Not yet reviewed by provider) Interpretation: Performing Lab:[facility], [address] [place] [phone] Notes/Report: --- Name: Vidal Patton Age/Sex: 83/M : 1940 Unit#: [id number] Attend Dr: Lorna Julien NP Re04/21/24 Status : ADM IN Location: [facility] 444-2 Disch: --- SPEC : [id number] RECD: 04/23/241505 STATUS: VANI CONROY NUM: [id number] RHONDA: 04/23/24-1403 [facility] DR: Vidal Olivera MD ENTERED: 04/23/24- 14 [...] AB/PAS stains Copies To: Waylon Diaz MD [address] [address] Lorna Julien NP [address] [place] [address] CONTINUED ON NEXT PAGE --- Name: Vidal Patton Age/Sex: 83/M : 1940 Unit#: [id number] Attend Dr: Lorna Julien CLINICAL DOCUMENTATION DEVELOPER Re04/21/24 Status : ADM IN Location: [facility] 444-2 Disch: --- SPEC : [id number] RECD: 04/23/241505 STATUS: VANI CONROY NUM: [id number] RHONDA: 04/23/24-1403 [facility] DR: Vidal Olivera MD ENTERED: 04/23/24 14 SP TYPE: Surgical OTHR DR: Waylon Diaz MD, Jackie NP ORDERED: HE Stain/3, Gross Micro L4, IHC, Special st. 2, H. pylori, AB/PAS Copies To: (Continued) Vidal Olivera MD [facility] [address] [place] [address] --- Signed (signature on file) Turner [...] Problem Status W/U Status Risk Notes Problem 004361050 Colon cancer screening (Z12.11) Active confirmed Problem Anorexia (76723474) Anorexia (R63.0) Active confirmed Encounters Encounter Location Date Provider Diagnosis [facility] [address] [place] [address] 04/30/2024 Blair Espinoza Jr Plan Of Treatment Pending Test Test Name Order Date Pathology 04/23/2024 Next Appt Details Provider Name:Blair rodriguez Jr, 09/27/2024 02:55:00 PM, [address], [address], [place], [address], Insurance Providers Payer Name Payer Address Payer Phone Subscriber Number Group Number Insured Name Patient Relationship to Insured Coverage Start Date Coverage End Date MEDICARE OF [place] [address] [place] [address] [id number] VIDAL PATTON Self - patient is the insured MEDEX ATTN CLAIMS [address] [place] [address] [id number] VIDAL PATTON Self - patient is the insured Medical (General) History Medical History History ICD Code hypertension diabetes mellitus peripheral vascular disease elevated cholesterol Surgical History Surgery Date(Month/Year) stent placement-right leg hernia repair cataract removal
[2024-07-15 14:17] LABS: Basophils Percent Auto 0.4 % (0-2); Eosinophils Absolute Auto 0.3 X10*3/uL (0.0-0.4); Eosinophils Percent Auto 4.2 % (0-4); Hemoglobin 11.3 g/dl (14.0-18.0); Imm Gran Abs Auto 0.02 X10*3/uL (0.00-0.03); Imm Gran Pct Auto 0.3 % (0.0-0.4); Lymphocytes Absolute Auto 1.5 X10*3/uL (1.2-4.9); Lymphocytes Percent Auto 20.8 % (20-40); Mean Corpuscular HGB Conc 34.2 g/dl (31.0-36.0); Mean Corpuscular Hemoglobin 31.4 pg (27.0-33.0); Mean Corpuscular Volume 91.7 fL (80.0-98.0); Mean Platelet Volume 8.8 fL (9.4-12.4); Monocytes Absolute Auto 1.1 X10*3/uL (0.1-1.2); Monocytes Percent Auto 14.9 % (2-11); Neutrophils Absolute Auto 4.4 x10*3/uL (2.0-8.3); Neutrophils Percent Auto 59.4 % (45-73); Platelet Count 212 X10*3/uL (160-400); Red Cell Distribution Width 13.1 % (11.0-16.0); White Blood Count 7.3 X10*3/uL (4.8-10.8)
--- OUTSIDE RECORDS SUMMARY | 2024-07-15 14:17 | XMS_ITS | Patient Health Record ---
Author Organization [facility] Address [address] [facility] [place] [address] Care Team Providers Care Internal Control Consultant Name Role Phone Waylon Diaz MD Primary Care Provider Abiola Shelley Morton Unavailable [phone] Allergies No Known Allergies Results Component Value [...] Problem Acquired hammer toe of right foot (2239640566561394) Other hammer toe(s) (acquired), right foot (M20.41) Active confirmed Problem Acquired hammer toe of left foot (2145135393530338) Other hammer toe(s) (acquired), left foot (M20.42) Active confirmed Problem Polyneuropathy due to type 2 diabetes mellitus (177549512) Type 2 diabetes mellitus with diabetic polyneuropathy (E11.42) Active confirmed Problem Intermittent claudication (89212111) Intermittent claudication (I73.9) Active confirmed Problem Atherosclerosis of [place] arteries of the extremities (182787123042134) Atherosclerosis of [place] artery of both lower extremities, with unspecified presence of clinical manifestation (I70.203) Active confirmed Q7(A), Q8(2B), Q9(1B,2 C) Problem Interstitial myositis (14358597) Interstitial myositis of left foot (M60.172) Active confirmed Vital Signs Blood pressure diastolic 80 mm Hg 05/10/2024 Height 6 ft 0 in in 05/10/2024 Blood pressure systolic 120 mm Hg 05/10/2024 Weight 178 lbs 05/10/2024 BMI 24.14 kg/m2 05/10/2024 Procedures Procedure Date Ordered Date Performed Result Body Sit e 80045-HENNAAW NAIL, 6 OR MORE 07/25/2023 N/A 57099-Oejz Destruction, 1-07/25/2023 N/A 08774-IMDO SKIN LESIONS, OVER 4 07/25/2023 N/A 87430-ZNRUYSO NAIL, 6 OR MORE 10/20/2023 N/A 49351-Nmft Destruction, 1-10/20/2023 N/A 12765-CZAU SKIN LESIONS, OVER 4 10/20/2023 N/A 59371-IBRUTZZ NAIL, 6 OR MORE 02/06/2024 N/A 27047-Orwt Destruction, 1-14 02/06/2024 N/A 69733-XNWZ SKIN LESIONS, OVER 4 02/06/2024 N/A 64946-THVMTPS NAIL, 6 OR MORE 05/10/2024 N/A 00391-Wjlb Destruction, 1-14 05/10/2024 N/A 41017-Tvvxjqrx Plate 05/10/2024 N/A 75544-ZVKT SKIN LESIONS, OVER 4 05/10/2024 N/A Encounters Encounter Location Date Provider Diagnosis [facility] [address] [place] [address] 07/25/2023 Shelley Black Plantar fasciitis of left foot M72.2 ; Type 2 diabetes mellitus with diabetic polyneuropathy E11.42 ; Pain in left foot M79.672 ; Calcaneal spur, left foot M77.32 ; Interstitial myositis of left foot M60.172 ; Bursitis of left foot M77.52 ; Tinea unguium B35.1 ; Unspecified atherosclerosis of [place] arteries of extremities, bilateral legs I70.203 ; Plantar wart B07.0 and Pain in right foot M79.[address] [address] 10/20/2023 Shelley Black Plantar fasciitis of left foot M72.2 ; Intermittent claudication I73.9 ; Type 2 diabetes mellitus with diabetic polyneuropathy E11.42 ; Pain in left foot M79.672 ; Calcaneal spur, left foot M77.32 ; Interstitial myositis of left foot M60.172 ; Bursitis of left foot M77.52 ; Tinea unguium B35.1 ; Unspecified atherosclerosis of [place] arteries of extremities, bilateral legs I70.203 ; Plantar wart B07.0 and Pain in right foot M79.[address] [address] 02/06/2024 Shelley Black Atherosclerosis of [place] artery of both lower extremities, with unspecified presence of clinical manifestation I70.203 ; Intermittent claudication I73.9 ; Tinea unguium B35.1 ; Type 2 diabetes mellitus with diabetic polyneuropathy E11.42 ; Plantar wart B07.0 and Pain in right foot M79.[address] [address] 05/10/2024 Shelley Black Atherosclerosis of [place] artery of both lower extremities, with unspecified presence of clinical manifestation I70.203 ; Other hammer toe(s) (acquired), right foot M20.41 ; Intermittent claudication I73.9 ; Tinea unguium B35.1 ; Type 2 diabetes mellitus with diabetic polyneuropathy E11.42 ; Plantar wart B07.0 ; Pain in right foot M79.671 ; Ingrown nail L60.0 and Other hammer toe(s) (acquired), left foot M20.42 [facility] [address] [address] 11/03/2023 Shelley Duc Assessments Encounter Date Diagnosis (ICD Code) Assessment Notes Treatment Notes Treatment Clinical Notes Section Notes 07/25/2023 Type 2 diabetes mellitus with diabetic polyneuropathy (ICD-10 - E11.42) 07/25/2023 Plantar fasciitis of left foot (ICD-10 - M72.2) 10/20/2023 Intermittent claudication (ICD-10 - I73.9) 10/20/2023 Plantar fasciitis of left foot (ICD-10 - M72.2) Resolved 02/06/2024 Intermittent claudication (ICD-10 - I73.9) 02/06/2024 Atherosclerosis of [place] artery of both lower extremities, with unspecified presence of clinical manifestation (ICD-10 - I70.203) Q7(A), Q8(2B), Q9(1B,2C) 05/10/2024 Other hammer toe(s) (acquired), right foot (ICD-10 - M20.41) Patient Educated with: DIABETIC FOOT CARE INSTRUCTIONS. pdf (DIABETIC FOOT CARE INSTRUCTIONS. pdf) 05/10/2024 Atherosclerosis of [place] artery of both lower extremities, with unspecified [...] (ICD-10 - B35.1) 07/25/2023 Unspecified atherosclerosis of [place] arteries of extremities, bilateral legs (ICD-10 - I70.203) 05/10/2024 Ingrown nail (ICD-10 - L60.0) 05/10/2024 Other hammer toe(s) (acquired), left foot (ICD-10 - M20.42) 07/25/2023 Plantar wart (ICD-10 - B07.0) 10/20/2023 Unspecified atherosclerosis of [place] arteries of extremities, bilateral legs (ICD-10 - I70.203) 10/20/2023 Plantar wart (ICD-10 - B07.0) 07/25/2023 Pain in right foot (ICD-10 - M79.671) 10/20/2023 Pain in right foot (ICD-10 - M79.671) Plan Of Treatment Pending Test Test Name Order Date Hemoglobin A1c 07/20/2018 47717-MYYIFAE NAIL, 6 OR MORE 05/10/2024 21666-KXUQEHE NAIL, 6 OR MORE 07/25/2023 95922-JIRNUXK NAIL, 6 OR MORE 10/20/2023 59062-LRJTPHJ NAIL, 6 OR MORE 02/06/2024 90193-IGWCEPZ NAIL, 6 OR MORE 04/22/2022 87801-HTAIFWP NAIL, 6 OR MORE 07/29/2022 62673-LQWWDNR NAIL, 6 OR MORE 01/06/2023 89140-HHKLZJM NAIL, 6 OR MORE 04/21/2023 40681-CLHEPZD NAIL, 6 OR MORE 12/03/2010 80874-HPISJZF NAIL, 6 OR MORE 03/08/2011 57678-WZZNXFT NAIL, 6 OR MORE 06/09/2011 99402-HGHIYLZ NAIL, 6 OR MORE 09/09/2011 82131-SKGZUMP NAIL, 6 OR MORE 12/13/2011 80514-ZNHMCPH NAIL, 6 OR MORE 03/13/2012 79518-WYLNEYJ NAIL, 6 OR MORE 06/12/2012 66386-TTKISLX NAIL, 6 OR MORE 12/18/2012 21777-SXPBLZZ NAIL, 6 OR MORE 04/02/2013 49176-JCWNGVJ NAIL, 6 OR MORE 09/13/2012 90533-PQBQBGT NAIL, 6 OR MORE 06/25/2013 00312-HCMTBTW NAIL, 6 OR MORE 10/01/2013 22701-LZVBLRZ NAIL, 6 OR MORE 12/31/2013 28494-GNJIFCB NAIL, 6 OR MORE 04/10/2014 22043-CZUTBZO NAIL, 6 OR MORE 07/08/2014 71669-YOTBLLD NAIL, 1-5 10/14/2014 26066-IWIBIGQ NAIL, 1-5 04/17/2015 25884-IITZBRS NAIL, 1-5 07/17/2015 82154-NPFJJRL NAIL, 1-5 01/15/2015 03183-RQHHOKK NAIL, 1-5 10/20/2015 55961-GLBXXQG NAIL, 1-5 01/22/2016 57540-VRKYQLA NAIL, 1-5 04/22/2016 21891-XXLGVDY NAIL, 1-5 07/19/2016 93666-PCNTQKV NAIL, 1-5 10/15/2016 87925-WYDTKMC NAIL, 1-5 01/10/2017 14155-HEYUHCE NAIL, 1-5 04/18/2017 91055-ULRAXKY NAIL, 1-5 07/18/2017 82726-UUEQQKW NAIL, 1-5 10/17/2017 98966-XZGQNAA NAIL, 04-0101/16/2018 30578-VOFVWOM NAIL, 04-0112/28/2021 86349-GUWQPAM NAIL, 04-0106/22/2021 19753-QAFQUVF NAIL, 04-0109/21/2021 88994-UNADRHN NAIL, 04-0104/20/2018 83091-RQTSGEN NAIL, 04-0107/20/2018 09784-SOHASNI NAIL, 04-0111/02/2018 26567-WOVCGNH NAIL, 04-0102/08/2019 97300-GITSAVR NAIL, 04-0105/17/2019 93168-GIXDVCL NAIL, 04-0112/24/2019 11252-PXQHSXY NAIL, 04-0109/13/2019 88932-AKVEGCU NAIL, 04-0103/31/2020 58314-BEIFRJS NAIL, 04-0107/16/2020 18968-XZVAZYR NAIL, 04-0110/16/2020 78123-XWEWKXW NAIL, 04-0102/16/2021 69869-Dygk Destruction, 04-1012/24/2019 56389-Mmsq Destruction, 04-1007/29/2022 65027-Crja Destruction, 04-1001/06/2023 74814-Hykc Destruction, 04-1007/25/2023 42739-Ykkm Destruction, 04-1010/20/2023 76382-Bhez Destruction, 04-1002/06/2024 34105-Kcwk Destruction, 04-1005/10/2024 93213-Fksahlga Plate 05/10/2024 48578-Mraavhqz Plate 02/16/2021 41921-Unrslgdv Plate 02/08/2019 94988-Scdgbprq Plate 04/20/2018 48984-Bvbmmzov Plate 07/18/2017 59982-Fygdksov Plate 06/25/2013 01455-Tilpiolm Plate 01/15/2015 58237-Heqssmko Plate 10/14/2014 05628-Bwcipyof Plate 07/08/2014 63415-Xswuxefb Plate 04/10/2014 29481-Rivelnrk Plate 12/31/2013 93477-Bhstamox Plate 10/01/2013 14501-Xosdlrud Plate 09/13/2012 20913-Bdvrzlfd Plate 12/18/2012 23823-Qiowodev Plate 04/02/2013 19856-Gwgblzsd Plate 06/12/2012 24643-Iwzdloxf Plate 03/13/2012 28635-Qvqxhefw Plate 12/13/2011 42188-Gidswhcq Plate 09/09/2011 02317- Debride <25 sq cm 01/22/2016 80523 I&D ABSCESS- SIMPLE,SINGLE 024 26869-CEJH SKIN LESIONS, OVER 4 01/07/20 27563-URYV SKIN LESIONS, OVER 4 07/25/19 44924-FPMR SKIN LESIONS, OVER 4 04/21/19 60090-UFLP SKIN LESIONS, OVER 4 04/22/19 93797-LPKY SKIN LESIONS, OVER 4 07/30/19 32549-JRIR SKIN LESIONS, OVER 4 05/10/19 77114-EEZE SKIN LESIONS, OVER 4 02/06/20 34007-GVAX SKIN LESIONS, OVER 4 10/20/19 90890-LCCI SKIN LESIONS, 2 TO 4 12/29/19 94963-CEBY SKIN LESIONS, 2 TO 4 09/22/19 69468-QRJJ SKIN LESIONS, 2 TO 4 07/21/19 19 10606-JVSI SKIN LESIONS, 2 TO 4 11/03/19 19 87195-BIYC SKIN LESIONS, 2 TO 4 02/09/20 19 96363-JWOM SKIN LESIONS, 2 TO 4 09/13/19 20 65960-IEJQ SKIN LESIONS, 2 TO 4 05/17/19 20 20014-SZNH SKIN LESIONS, 2 TO 4 06/23/19 22 55753-VEXH SKIN LESIONS, 2 TO 4 02/17/20 21 89718-IMOK SKIN LESIONS, 2 TO 4 10/17/19 21 36688-MONI SKIN LESIONS, 2 TO 4 03/31/19 21 29742-HTNF SKIN LESIONS, 2 TO 4 07/17/19 21 21416-YDXV SKIN LESIONS, 2 TO 4 12/24/19 20 17179-QTDC SKIN LESIONS, 2 TO 4 01/22/20 16 62825-PIII SKIN LESIONS, 2 TO 4 07/20/19 17 53843-JEPK SKIN LESIONS, 2 TO 4 04/22/19 17 37975-NJAM SKIN LESIONS, 2 TO 4 10/20/19 16 99249-IAOH SKIN LESIONS, 2 TO 4 01/21/20 16 49654-FXWY SKIN LESIONS, 2 TO 4 07/17/19 16 07303-YPWW SKIN LESIONS, 2 TO 4 10/18/19 18 00377-JSNC SKIN LESIONS, 2 TO 4 04/20/19 19 66748-JQQZ SKIN LESIONS, 2 TO 4 01/17/20 18 68070-MTXS SKIN LESIONS, 2 TO 4 07/19/19 18 06089-HJTB SKIN LESIONS, 2 TO 4 04/18/19 18 73938-NRQH SKIN LESIONS, 2 TO 4 01/11/20 17 98384-JPFR SKIN LESIONS, 2 TO 4 10/16/19 17 67974-YBLY SKIN LESIONS, 2 TO 4 12/13/19 12 65208-DBDU SKIN LESIONS, 2 TO 4 09/09/19 12 45481-FZQE SKIN LESIONS, 2 TO 4 03/13/20 12 50533-OAPR SKIN LESIONS, 2 TO 4 04/02/19 14 50814-RODL SKIN LESIONS, 2 TO 4 06/26/19 14 77884-XYSX SKIN LESIONS, 2 TO 4 10/02/19 14 60928-FQUE SKIN LESIONS, 2 TO 4 01/01/20 14 35080-HQHO SKIN LESIONS, 2 TO 4 04/10/19 15 34953-WLWG SKIN LESIONS, 2 TO 4 07/09/19 15 52929-OKUX SKIN LESIONS, 2 TO 4 10/15/19 15 90728-ICNV SKIN LESIONS, 2 TO 4 01/16/20 15 A2106-JGYYLGTP DYSTROPHIC NAILS ANY # I0625-LUEEZWNI DYSTROPHIC NAILS ANY # D7962-ABLGUGDK DYSTROPHIC NAILS ANY # B2482-CUCVGAGV DYSTROPHIC NAILS ANY H6819-UDROUWPL DYSTROPHIC NAILS ANY # Z2077-ZFXHUHUK DYSTROPHIC NAILS ANY # F5827-AZRKMXHJ DYSTROPHIC NAILS ANY # R3071-WJUAAZLE DYSTROPHIC NAILS ANY # L7034-CLGRVGCZ DYSTROPHIC NAILS ANY # A5138-TBWAMGPB DYSTROPHIC NAILS ANY # B9532-VQFZREJW DYSTROPHIC NAILS ANY # J3785-YHYHFTMU DYSTROPHIC NAILS ANY # D0423-RXKSZOVK DYSTROPHIC NAILS ANY # G1303-UPTWTECM DYSTROPHIC NAILS ANY # L5736-HUGJWZYR DYSTROPHIC NAILS ANY # O1472-YPYLZRBB DYSTROPHIC NAILS ANY # S2641-NOFTLSIN DYSTROPHIC NAILS ANY # E0408-ENICWAKO DYSTROPHIC NAILS ANY # R1161-ZYFMQQRF DYSTROPHIC NAILS ANY # Z9889-XMLOWFHU DYSTROPHIC NAILS ANY # B0207-DVMZDXSO DYSTROPHIC NAILS ANY # U3498-WXFKKMQO DYSTROPHIC NAILS ANY # Z9846-ZYKKHQAZ DYSTROPHIC NAILS ANY # E9093-FRFKXSIN DYSTROPHIC NAILS ANY # W2423-IEHCQFSK DYSTROPHIC NAILS ANY # 29844,C8731-AGW TENDON SHEATH/LIGAMENT 0 05/19/2023 60544,Q4794-OXF TENDON SHEATH/LIGAMENT 0 08/24/2018 Next Appt Details Provider Name:Shelley Hernandez Duc , 08/30/2024 10:30:00 AM, [address] [place], [address], Insurance Providers Payer Name Payer Address Payer Phone Subscriber Number Group Number Insured Name Patient Relationship to Insured Coverage Start Date Coverage End Date Medicare National Govt [employer] [address] [facility] [place] [address] [id number] Elan Patton Self - patient is the insured [employer] Blue Shield [address] [place] [address] [phone] [id number] Elan Patton Self - patient is the insured 2 Medical (General) History Medical History History ICD Code mumps diabetic type ll chicken pox Retinopathy Surgical History Surgery Date(Month/Year) leg surgery Catarac SX Both Eyes 11/2016 LT Ear [facility] 06/2017 Leg surgery- (Right) Stent Placement @ B 08/2017 Right eye 12/2018
--- OUTSIDE RECORDS SUMMARY | 2024-07-15 14:17 | XMS_ITS ---
Author Organization [facility] Address [address] [facility] [place] [address] Care Team Providers Care Chemical Maker Name Role Phone Waylon Diaz MD Primary Care Provider Unavaila Shelley Morton Unavailable [phone] Allergies No Known Allergies REASON FOR VISIT [...] W/U Status Risk Notes Problem Atherosclerosis of [place] arteries of the extremities ([id number]) Atherosclerosis of [place] artery of both lower extremities, with unspecified presence of clinical manifestation (I70.203) Active confirmed Q7(A), Q8(2B), Q9(1B,2 C) Vital Signs Height 6 ft 0 in in 02/06/2024 Weight 220 lbs 02/06/2024 BMI 29.83 kg/m2 02/06/2024 Procedures Procedure Date Ordered Date Performed Result Body Sit e 46972-CPKKBPE NAIL, 6 OR MORE 02/06/2024 N/A 78136-Fukt Destruction, 1-14 02/06/2024 N/A 41779-TGIZ SKIN LESIONS, OVER 4 02/06/2024 N/A Encounters Encounter Location Date Provider Diagnosis [facility] [address] [place] [address] 02/06/2024 Shelley Black Atherosclerosis of [place] artery of both lower extremities, with unspecified presence of clinical manifestation I70.203 ; Intermittent claudication I73.9 ; Tinea unguium B35.1 ; Type 2 diabetes mellitus with diabetic polyneuropathy E11.42 ; Plantar wart B07.0 and Pain in right foot M79.671 Assessments Encounter Date Diagnosis (ICD Code) Assessment Notes Treatment Notes Treatment Clinical Notes Section Notes 02/06/2024 Atherosclerosis of [place] artery of both lower extremities, with unspecified presence of clinical manifestation (ICD-10 - I70.203) Q7(A), Q8(2B), Q9(1B,2C) 02/06/2024 Intermittent claudication (ICD-10 - I73.9) 02/06/2024 Tinea unguium (ICD-10 - B35.1) 02/06/2024 Type 2 diabetes mellitus with diabetic polyneuropathy (ICD-10 - E11.42) 02/06/2024 Plantar wart (ICD-10 - B07.0) 02/06/2024 Pain in right foot (ICD-10 - M79.671) Plan Of Treatment Pending Test Test Name Order Date 30990-BCOHVFQ NAIL, 6 OR MORE 02/06/2024 21100-Rrej Destruction, 1-14 02/06/2024 17243-LCIF SKIN LESIONS, OVER 4 02/06/20 24 Next Appt Details Follow Up: 3 Months, Reason: Provider Name:Shelley Xavier , 08/30/2024 10:30:00 AM, [address] [place], [address], Procedure Notes * Category Sub-Category Detail Notes Wart Treatment Procedure Verrucae(s) were debrided to pin-point bleeding margins with sterile surgical blade, silver nitrate chemocautery applied, recomm. immune-boosting meds such as zinc, recomm. follow up with topical chemosurgical agents, Pt STILL, defers any other forms of tx (65919) Debride Nail 6-10 Nail debridement Performance o f this nail treatment by a nonprofessional would put this patients foot and overall health at risk. Therefore, debridement to affected nail(s), as described in exam, was performed extensively to reduce/remove overall nail length, girth, thickness, subungual debris, and necrotic tissue, by manual and/or electrical means through the use of a nail nipper and/or dremel-type level vial grinder, to a more viable healthy nail plate or bed tissue 6-10. Silver nitrate used for any petechial bleeding as necessary. Definitive antifungal treatment options have been reviewed and discussed with the patient. The patient chooses, no pharmaceutical tx - 45552 Keratoma Treatment Parring or Cutting o f Benign Hyperkeratotic Lesion(s) ... , Q8, 20666 ( >4 Lesions) - The Benign hyperkeratotic lesions, as described above were pared, and/or cut utilizing a sterile #15 blade, tissue nippers, and/or dremel Progress Notes * Elan PATTONDOB:1940 (83 yo M)Acc No.[id number]:02/06/2024 Progress Note Patient:?Elan PATTON Provider:?Shelley Xavier DPM :1940???Age:83 Y???Sex:Male Joseph e:02/06/2024 Address:[address] [place], [place] [address] Pcp:Waylon Diaz MD Subjective: * Chief Complaints: * ???Painful Nail(s) aggravate d by shoes and causing difficulty standing/walking.At Risk FootcareWart(s) * HPI: ???At Risk footcare:?Pt States Last PCP Visit:?Date?12/14/2023 ???Skin problems:?Pt States PCP Visit: ?DATE?12/14/2023 * Medical History:? * Surgical History:?leg surger y Catarac SX Both Eyes 11/2016[facility] 06/2017Leg surgery- (Right) Stent Placement @ [...] * Assessment: 1.?Intermittent claudication - I73.9???2.?Atherosclerosis of [place] artery of both lower extremities, with unspecified presence of clinical manifestation - I70.203 (Primary)???Notes :Q7(A), Q8(2B), Q9(1B,2C)???3.?Tinea unguium - B35.1???4.?Type 2 diabetes mellitus with diabetic polyneuropathy - E11.42???5.?Plantar wart - B07.0???6.?Pain in right foot - M79.671??? Plan: * Treatment: 2.?Tinea unguium?Procedure: 46682-JULKUGV NAIL, 6 OR MORE 3.?Plantar wart?Procedure: 86967-Gnir Destruction, 1-14 * Procedures:?Debride Nail 6-10:?Nail debridement?Performance of this nail treatment by a nonprofessional would put this patients foot and overall health at risk. Therefore, debridement to affected nail(s), as described in exam, was performed extensively to reduce/remove overall nail length, girth, thickness, subungual debris, and necrotic tissue, by manual and/or electrical means through the use of a nail nipper and/or dremel-type level vial grinder, to a more viable healthy nail plate or bed tissue 6-10. Silver nitrate used for any petechial bleeding as necessary. Definitive antifungal treatment options have been reviewed and discussed with the patient. The patient chooses, no pharmaceutical tx - 43921.?Keratoma Treatment:?Parring or Cutting of Benign Hyperkeratotic Lesion(s)?... , Q8, 61821 ( >4 Lesions) - The Benign hyperkeratotic lesions, as described above were pared, and/or cut utilizing a sterile #15 blade, tissue nippers, and/or dremel.?Wart Treatment:?Procedure?Verrucae(s) were debrided to pin-point bleeding margins with sterile surgical blade, silver nitrate chemocautery applied, recomm. immune-boosting meds such as zinc, recomm. follow up with topical chemosurgical agents, Pt STILL, defers any other forms of tx (12818).? * Procedure Codes:?38740 DEBRI DE NAIL, 6 OR MORE, Modifiers: XS 38240 Wart Destruction, 1-14, Modifiers: XS 48872 TRIM SKIN LESIONS, OVER 4, Modifiers: Q8 * Follow Up:?3 Months * * Sign off status: Completed true * Provider:Michell Xavier DPM Date:?2023 Generated for Savannahi vikram/Fanikg/eTransmitting on:?07/15/2024 02:17 PM EDT History and Physical Notes * [...]
--- OUTSIDE RECORDS SUMMARY | 2024-07-15 14:17 | XMS_ITS ---
Author Organization [facility] Address [address] [place] [address] Care Team Providers Care Engraver Hand [employer] Name Role Phone Waylon Diaz MD Primary Care Provider Blair Nielson Jr REASON FOR VISIT Pt no show Encounters Encounter Location Date Provider Diagnosis [facility] [address] [place] [address] 04/30/2024 Blair Espinoza Jr Plan Of Treatment Next Appt Details Provider Name:Blair rodriguez Jr, 09/27/2024 02:55:00 PM, [address], [address], [place], [address], Progress Notes * VIDAL PEREZDOB: 0 (83 yo M)Acc No.[id number]:04/30/2024 Patient:?VIDAL PEREZ :1940???Age:83 Y???Sex:Male Address:[address] [place] [address] [place] [address] * true * Date:? Generated for Printi ng/Faxing/eTransmitting on:?07/15/2024 02:17 PM EDT
--- OUTSIDE RECORDS SUMMARY | 2024-07-15 14:17 | XMS_ITS ---
Author Organization [facility] [place] Address [address] [facility] [place] [address] Care Team Providers Care Lye Boiler Name Role Phone Waylon Diaz MD Primary Care Provider Unavaila anson Black, Shelley Unavailable [phone] Allergies No Known Allergies REASON FOR VISIT [...] Ordered Date Performed Result Body Sit e 93619-CURIASF NAIL, 6 OR MORE 05/10/2024 N/A 03618-Vntw Destruction, 1-14 05/10/2024 N/A 64218-Ubzkujgn Plate 05/10/2024 N/A 56267-OJJG SKIN LESIONS, OVER 4 05/10/2024 N/A Encounters Encounter Location Date Provider Diagnosis [facility] [place] [address] [place] [address] 05/10/2024 Shelley Black Atherosclerosis of [place] artery of both lower extremities, with unspecified [...] Clinical Notes Section Notes 05/10/2024 Atherosclerosis of [place] artery of both lower extremities, with unspecified [...] INSTRUCTIONS.pdf) Pending Test Test Name Order Date 98065-YFOHSFM NAIL, 6 OR MORE 05/10/2024 71514-Etcy Destruction, 1-14 05/10/2024 68538-Fzgrzmml Plate 05/10/2024 88183-VNAI SKIN LESIONS, OVER 4 05/10/19 25 Next Appt Details Follow Up: 3 Months, Reason: Provider Name:Shelley Xavier , 08/30/2024 10:30:00 AM, [address] [place], [address], Procedure Notes * Category Sub-Category Detail Notes Wart Treatment Procedure Verrucae(s) were debrided to pin-point bleeding margins with sterile surgical blade, silver nitrate chemocautery applied, recomm. immune-boosting meds such as zinc, recomm. follow up with topical chemosurgical agents, (81011), DIABETES: Any more invasive procedure to wart [...] Motrin was recommended for pain or discomfort (12893), DIABETES: Matricectomy deferred at this time due [...] use of a nail nipper and/or dremel-type eyeglass lens grinder, to a more viable healthy nail [...] to maintain effectiveness in symptomatic relief - 85350 Keratoma Treatment Parring or Cutting o f [...] instrumentation by the physician of record - 65263, Progress Notes * ANA ElanDOB:1940 (83 yo M)Acc No.[id number]:05/10/2024 Progress Note Patient:?Elan PATTON Provider:?Shelley Xavier DPM :1940???Age:83 Y???Sex:Male Joseph e:05/10/2024 Address:[address] [place] [address], [place], [place] Pcp:Waylon Diaz MD Subjective: * Chief Complaints: [...] y Catarac SX Both Eyes 11/2016[facility] 06/2017Leg surgery- (Right) St[facility] [place] [facility] [place]2017Right eye 12/2018 * Hospitalization/Major Diagno stic [...] :Chronic problem, Worse (4),Rx Management (4)???2.?Atherosclerosis of [place] artery of both lower extremities, with unspecified presence of clinical manifestation - I70.203???Notes :Q7(A), Q8(2B), Q9(1B,2C)???3.?Intermittent claudication - I73.9???4.?Tinea unguium - B35.1???5.?Type 2 diabetes mellitus with diabetic polyneuropathy - E11.42???6.?Plantar wart - B07.0???7.?Pain in right foot - M79.671???8.?Ingrown nail - L60.0???9.?Other hammer toe(s) (acquired), left foot - M20.42???Specify :Chronic problem, Worse (4),Rx Management (4)??? Plan: * Treatment: 2.?Tinea unguium?Procedure: 22825-VIITKWZ NAIL, 6 OR MORE 3.?Type 2 diabetes mellitus with diabetic polyneuropathy?Procedure: 66040-SXSL SKIN LESIONS, OVER 4 4.?Plantar wart?Procedure: 31600-Wcyc Destruction, 1-14 5.?Ingrown nail?Procedure: 00727-Piqvyqej Plate * Procedures:?Debride Nail 6-10:?Nail debridement?Due to [...] use of a nail nipper and/or dremel-type eyeglass lens grinder, to a more viable healthy nail [...] to maintain effectiveness in symptomatic relief - 47905.?Keratoma Treatment:?Parring or Cutting of Benign Hyperkeratotic Lesion(s)?(-57) [...] instrumentation by the physician of record - 23684,.?Nail Avulsion:?Location?, Lateral nail border, T5.?Anesthesia?, was deferred [...] Motrin was recommended for pain or discomfort (60957), DIABETES: Matricectomy deferred at this time due to diabetes risk.?Wart Treatment:?Procedure?Verrucae(s) were debrided to pin-point bleeding margins with sterile surgical blade, silver nitrate chemocautery applied, recomm. immune-boosting meds such as zinc, recomm. follow up with topical chemosurgical agents, (49684), DIABETES: Any more invasive procedure to wart deferred due to diabetes risk, CIRCULATION: Any more invasive procedure to wart deferred due to circulation risk.? * Procedure Codes:?33516 DEBRI DE NAIL, 6 OR MORE, Modifiers: XS 18097 Avulsion Plate, Modifiers: T5 57313 Wart Destruction, 1-14, Modifiers: XS 76501 TRIM SKIN LESIONS, OVER 4, Modifiers: Q8 [...] Xavier DPM Date:?2024 Generated for Tucker sue/Erin/Halina on:?07/15/2024 02:17 PM EDT History and Physical [...]
--- OUTSIDE RECORDS SUMMARY | 2024-07-15 14:17 | XMS_ITS ---
Author Organization [facility] Address [address] [place] [address] Care Team Providers Care Ticket Seller Name Role Phone Joe BAUM, Waylon Primary Care Provider Blair Nielson Jr Encounters Encounter Location Date Provider Diagnosis [facility] [address] [place] [address] 04/30/2024 Blair Espinoza Jr Plan Of Treatment Next Appt Details Provider Name:Blair rodriguez Jr, 09/27/2024 02:55:00 PM, [address], [address], [place], [address], Progress Notes * VIDAL PEREZDOB: 0 (84 yo M)Acc No.[id number]:04/30/2024 Progress Notes Patient:?VIDAL PEREZ Provider:?Blair Espinoza MD :1940???Age:83 Y???Sex:Male Joseph e:04/30/2024 Address:[address] [place] [address] [id number] Pcp:Waylon Diaz MD Subjective: * Chief Complaints: [...] MD Date:?0 04/30/2024 Generated for Tucker sue/Erin/Halina on:?07/15/2024 02:16 PM EDT
--- OUTSIDE RECORDS SUMMARY | 2024-07-15 14:18 | XMS_ITS ---
Author Organization [facility] Address [address] [place] [address] Care Team Providers Care Visual Education Director Name Role Phone Joe BAUM, Waylon Primary Care Provider Shelley Julian [phone] Encounters Encounter Location Date Provider Diagnosis [address] [address] 01/26/2024 Shelley Xavier Plan Of Treatment Next Appt Details Provider Name:Shelley Xavier , 08/30/2024 10:30:00 AM, [address] [place], [address], Progress Notes * ABDI ElanDOB:1940 (84 yo M)Acc No.[id number]:01/26/2024 Progress Note Patient:?Elan PATTON Provider:?Shelley Xavier DPM :1940???Age:83 Y???Sex:Male Joseph e:01/26/2024 Address:[address] [place], [place] [address] Pcp:Waylon Diaz MD Subjective: * Chief Complaints: [...] Xavier DPM Date:?2023 Generated for Tucker sue/Erin/Halina on:?07/15/2024 02:17 PM EDT
--- NOTE | 2024-07-15 14:34 | ED_ITS ---
HPI - General Adult General Chief complaint: Fall Stated complaint: FALL,LT FINGER BLEEDING,POC 50 PER EMS Time Seen by Provider: 07/15/24 14:19 Source: patient, family (), EMS, RN notes reviewed and old records reviewed Mode of arrival: EMS Limitations: no limitations History of Present Illness ED Provider: Marlena HPI narrative: Patient is a an 84-year-old male with history of paroxysmal aflutter on Xarelto, DM, hypertension presenting to the emergency department after a fall while he was walking into [employer]. Patient reports that he tripped and fell. He denies dizziness, head strike, or loss of consciousness. Blood glucose noted to be 50 when checked by EMS on arrival to the emergency department. He was given oral glucose, rechecked and glucose remained at 50. Glucose 75 upon arrival to ED. States he did not eat yet today as he was going to [employer] to eat. He denies headache, vision changes, chest pain. Denies neck or back pain. He reports mild tenderness/bruising to bialteral hands. Denies lower extremity pain. Arrived in c-collar. MD complaint: hand pain Onset (ago): minute(s) Related Data Home Medications ?Medication ?Instructions ?Recorded ?Confirmed insulin lispro 100 unit/mL See Protocol subcut TIDAC 01/21/20 06/07/24 subcutaneous solution (Humalog U-100 Insulin) metformin 500 mg tablet,extended 2 tab PO BEDTIME 01/21/20 06/07/24 release 24 hr atorvastatin 40 mg tablet 40 mg PO DAILY 05/05/21 06/07/24 levothyroxine 137 mcg tablet 137 mcg PO DAILY@0600 05/05/21 06/07/24 rivaroxaban 20 mg tablet (Xarelto) 20 mg PO DAILY@1700 04/22/24 06/07/24 Previous Rx's ?Medication ?Instructions ?Recorded insulin glargine 100 unit/mL 15 unit (0.15 mL) subcut BID #10 mL 04/25/24 subcutaneous solution (Lantus U-100 Insulin) metoprolol tartrate 25 mg tablet 25 mg PO DAILY #180 tabs 04/25/24 omeprazole 40 mg capsule,delayed 40 mg PO DAILY@0630 #30 caps 04/25/24 release Allergies Allergy/AdvReac Type Severity Reaction Status Date / Time No Known Allergies Allergy Verified 07/15/24 13:57 [No Known Allergies*] Review of Systems 2 Review of Systems: As per HPI. Yes all other systems are reviewed and are negative Constitutional: Constitutional: Reports as per HPI [facility] Past Medical History Medical History Anemia Unexplained weight loss Paroxysmal atrial flutter DM2 (diabetes mellitus, type 2) Hypothyroid HTN (hypertension) Social History Social History Household Members: Spouse Housing: Apartment Do you presently have visiting nurse or other home services: No Alcohol intake: never Patient Tobacco Use Status: Current someday Tobacco user Tobacco use type: Cigar Advance Directives: Yes Advance Directives on File: Yes Advance Directives Date on File: 01/10/20 service: No Physical Exam ED Vital Signs: Vital Signs - 24 hr 07/15/24 13:54 Temperature 98.0 F Pulse Rate 64 Respiratory Rate 18 Blood Pressure 167/44 H Pulse Oximetry 98 Oxygen Delivery Method Room Air BMI result Body Mass Index 24.2 Vital signs have been reviewed and appear to be correct. Blood pressure elevated. Heart rate normal. Respiratory rate normal. Temperature normal. Oxygen saturation normal. Const General: cooperative, healthy appearing and no acute distress Orientation/consciousness: oriented to person, oriented to place, oriented to time and patient oriented x3 Limitations: no limitations HENMT Head: Yes normal to inspection, Yes normocephalic and Yes atraumatic Ears: hearing grossly normal bilaterally, external ears normal and TM's normal bilaterally General nose exam: Normal external nose present Face and sinus: Yes face symmetric Mouth: oropharynx normal and moist mucous membranes Throat: Yes uvula midline Eyes Pupils: Equal, round and reactive pupils present Neck Neck: Yes normal visual inspection and Yes supple Resp Effort & Inspection: normal respiratory effort and able to speak in complete sentences Auscultation: clear to auscultation bilaterally Cardio Rate: regular rate Rhythm: regular rhythm Heart sounds: S1 normal heart sound present and S2 normal heart sound present GI Palpation (GI): Soft to palpation and nontender Auscultation: normoactive bowel sounds General: Yes no CVA tenderness Back/Spine/Pelvis Back: no CVA tenderness Cervical Spine: collar present Thoracic/Lumbar Spine: thoracic and lumbar spine normal to inspection, straight leg raise negative bilaterally, No thoracic spinal tenderness and No lumbar spinal tenderness Pelvis: no pain with anterior-posterior compression and no pain with lateral compression Skin General skin exam: elasticity normal and turgor normal Neuro General: oriented to person, oriented to place, oriented to time, patient oriented x3, tone normal, moves all extremities, Normal light touch and pain sensation, no focal motor deficits, CN's II-XI intact bilaterally and deep tendon reflexes 2+ bilaterally Cranial nerves: Yes Equal, round and reactive pupils present Cognition (Neuro): normal cognition Motor exam (neuro): 5/5 motor strength present throughout, Normal motor muscle tone present throughout and Motor abnormalities not present Extrem Other: minor ecchymosis to fingertips bilateral hands General: Yes full ROM, Yes no pedal edema and Yes no calf tenderness Hand/finger images: 2 1. broken nail extending to nailbed on left 3rd finger Psych Mental Status: mental status grossly normal Affect: normal affect Thought process: Normal thought process present Medications Administered Discontinued Medications Generic Name Dose Route Start Last Admin Trade Name Freq PRN Reason Stop Dose Admin Bacitracin 1 appl 07/15/24 16:15 07/15/24 16:25 Bacitracin Oint 0.9 Gm Packet TOPICAL 07/15/24 16:16 1 appl ONCE ONE Administration Protocol Diphtheria/Tetanus/Acell Pertussis 0.5 ml 07/15/24 16:08 07/15/24 16:25 Diphth,Pertus(Acell),Tet Adult 0.5 Ml Syringe IM 07/15/24 16:09 0.5 ml .ONCE ONE Administration Medical Decision Making Medical Decision Making [facility] Narrative: Patient is a an 84-year-old male with history of paroxysmal aflutter on Xarelto, DM, hypertension presenting to the emergency department after a fall while he was walking into [employer]. On exam patient is awake, A+Ox3, VS WNL, afebrile, normal neurological exam without focal deficits, physical exam findings as above. Given reported symptoms and physical exam findings, initial differential includes but is not limited to finger contusions versus fractures, ICH, skull or cervical vertebral fracture or subluxation, hypoglycemia. Labs notable for no leukocytosis, slight anemia improved from prior visit, no significant electrolyte abnormalities. X-rays bilateral hands are without evidence of acute fracture. CT head and c-spine notable for no evidence of ICH, acute skull or cervical vertebral fracture subluxation. My interpretation is in agreement with the radiologist's interpretation. C-collar removed. Patient soaked both hands in saline with Betadine and bacitracin applied to broken nail with dressing. Tdap updated. Patient is comfortable with discharge home. Instructed patient follow-up with PCP. Return precautions discussed. Patient verbalized understanding of and agreement with plan. Differential Diagnosis Differential Diagnoses: The differential diagnosis associated with the presentation includes As per [facility] Admission/Observation Consideration of admission/observation: Escalation of care including admission/observation considered Patient would have been admitted to the hospital had their work up had any findings where hospital admission was appropriate and their clinical presentation warranted hospital admission. Lab Data [facility] Lab Attestation statement: I reviewed the patient's lab results. As per [facility] 07/15/24 14:11 07/15/24 14:11 Labs: Lab Results 07/15/24 07/15/24 Range/Units 14:04 14:11 WBC 7.3 (4.8-10.8) X10*3/uL RBC 3.60 L (4.60-5.80) X10*6/uL Hgb 11.3 L (14.0-18.0) g/dl Hct 33.0 L (42.0-52.0) % MCV 91.7 (80.0-98.0) fL MCH 31.4 (27.0-33.0) pg MCHC 34.2 (31.0-36.0) g/dl RDW 13.1 (11.0-16.0) % Plt Count 212 (160-400) X10*3/uL MPV 8.8 L (9.4-12.4) fL Immature Gran % (Auto) 0.3 (0.0-0.4) % Neut % (Auto) 59.4 (45-73) % Lymph % (Auto) 20.8 (20-40) % Ray % (Auto) 14.9 H (2-11) % Eos % (Auto) 4.2 H (0-4) % Baso % (Auto) 0.4 (0-2) % Lymph # (Auto) 1.5 (1.2-4.9) X10*3/uL Ray # (Auto) 1.1 (0.1-1.2) X10*3/uL Eos # (Auto) 0.3 (0.0-0.4) X10*3/uL Baso # (Auto) 0.0 (0.0-0.2) X10*3/uL Abs Immat Gran (auto) 0.02 (0.00-0.03) X10*3/uL Absolute Neuts (auto) 4.4 (2.0-8.3) x10*3/uL Absolute Nucleated RBC 0.000 (0.0-0.012) X10*3/uL Nucleated RBC % (auto) 0.0 (0.0-0.2) /100WBC Sodium 141 (135-145) mmol/L Potassium 4.5 (3.3-5.1) mmol/L Chloride 110 H (96-108) mmol/L Carbon Dioxide 22 (22-29) mmol/L Anion Gap 14 (12-20) BUN 18 H (9-16) mg/dL Creatinine 0.75 (0.5-1.4) mg/dL Estim Creat Clear Calc 76.6 Estimated GFR > 60 POC Glucose 75 (60-115) mg/dL Random Glucose 67 (60-115) mg/dL Calcium 9.2 (8.4-10.2) mg/dL Total Bilirubin 0.4 (0.0-1.0) mg/dL AST 34 (5-37) U/L ALT 14 (0-40) U/L Alkaline Phosphatase 63 (39-117) U/L Troponin I High Sens 10.5 D (<3.5-35.0) ng/L Total Protein 6.4 L (6.5-8.0) g/dL Albumin 3.9 (3.5-5.0) g/dL Independent Interpretation I performed an independent interpretation of an: Plain X-Ray and CT Scan Interpretation: X-rays bilateral hands are without evidence of acute fracture. CT head and c- spine notable for no evidence of ICH, acute skull or cervical vertebral fracture subluxation. Radiology Impression Discussion of test interpretation with radiology: I have reviewed the radiologist's reading. Radiologist Impression: CLINICAL HISTORY: fall, bruising to fingertips Exam: AP, lateral, and oblique views of the right hand. Comparison: Left hand radiographs from same day. Findings: No acute fractures. Multifocal degenerative change throughout the hand and wrist, especially involving the distal interphalangeal joints of the index and long fingers. No erosions. Impression: No acute fracture. CLINICAL HISTORY: fall, bruising to fingertips Exam: AP, lateral, and oblique views of the left hand. Comparison: None. Findings: Alignment of the metacarpophalangeal joints is anatomic. No acute fractures. Multifocal degenerative change throughout the wrist and hand, especially at the 1st carpometacarpal joints along the interphalangeal joints of the index through small fingers. No acute periosteal reaction. Impression: Multifocal degenerative change without acute fracture. CLINICAL HISTORY: fall, bruising to fingertips Exam: AP, lateral, and oblique views of the left hand. Comparison: None. Findings: Alignment of the metacarpophalangeal joints is anatomic. No acute fractures. Multifocal degenerative change throughout the wrist and hand, especially at the 1st carpometacarpal joints along the interphalangeal joints of the index through small fingers. No acute periosteal reaction. Impression: Multifocal degenerative change without acute fracture.CT head without contrast Comparison: MR/[place]/SR - MR HEAD/BRAIN WO CON - 07/10/24 14:[address]/SR - CT HEAD/BRAIN WO IV CON - 04/21/24 16:48 EST Findings: Generalized cerebral and cerebellar atrophy is again identified. The size and shape of the ventricular system is within normal limits for this degree of atrophy. Moderate areas of low attenuation are identified within the periventricular and deep white matter. No midline shift or mass effect. No intracranial hemorrhage. No calvarial fractures. Fgcb-kv-dgooqmkr mucosal thickening within the right maxillary sinus. IMPRESSION: No fracture or intracranial hemorrhage. Independent Historian Clinical information obtained from an independent historian. History obtained from or confirmed by: Spouse () External Record Review External record reviewed: Inpatient record, Office record and Outpatient record Discharge Plan Discharge Clinical Impression: Contusion of finger with damage to nail, Fall Patient Disposition: Home, Self-Care Instructions: Fall Prevention for Older Adults (ED), Contusion in Adults (ED), Nail Avulsion (ED) Additional Instructions: You were evaluated in the emergency department today for injuries after a fall. The CT scans of your brain and neck did not show evidence of acute bleeding or fractures. Your hand x-rays did not show evidence of fractures. Your tetanus vaccine (Tdap) was updated at today's visit. Your broken nail was cleaned and a dressing was applied. We recommend that you check the wound daily to assess for signs of infection and return if this occurs. Follow-up with your primary care provider this week. Return to the emergency department if you develop new or concerning symptoms. Prescriptions: No Action insulin lispro [Humalog U-100 Insulin] 100 unit/mL solution See Protocol subcut TIDAC Protocol: Insulin Correction Scale Less than or equal to 110 ---- Give (units): 0 111 to 150 Give (units): 0 151 to 200 Give (units): 2 201 to 250 Give (units): 4 251 to 300 Give (units): 6 301 to 350 Give (units): 8 Greater than 350 Give (units): 10 Call MD if Blood Glucose > : 350 metformin 500 mg tablet extended release 24 hr 2 tab PO BEDTIME atorvastatin 40 mg tablet 40 mg PO DAILY Xarelto 20 mg tablet 20 mg PO DAILY@1700 omeprazole 40 mg Capsule,Delayed Release(Dr/Ec) 40 mg PO DAILY@0630 Qty: 30 0RF metoprolol tartrate 25 mg tablet 25 mg PO DAILY Qty: 180 5RF insulin glargine [Lantus U-100 Insulin] 100 unit/mL solution 15 unit subcut BID Qty: 10 0RF levothyroxine 137 mcg tablet 137 mcg PO DAILY@0600 Print Language: Amharic
[2024-07-15 14:40] LABS: Troponin-I High Sensitivity 10.5 ng/L (<3.5-35.0)
[2024-07-15 14:41] LABS: Alanine Aminotransferase 14 U/L (0-40); Albumin Level 3.9 g/dL (3.5-5.0); Alkaline Phosphatase 63 U/L (39-117); Anion Gap 14 (12-20); Aspartate Amino Transferase 34 U/L (5-37); Bilirubin Total 0.4 mg/dL (0.0-1.0); Blood Urea Nitrogen 18 mg/dL (9-16); Calcium 9.2 mg/dL (8.4-10.2); Carbon Dioxide 22 mmol/L (22-29); Chloride 110 mmol/L (96-108); Creatinine Clr Calc Pharmacy 76.6; Estimated Glomerular Filt Rate > 60; Glucose Random 67 mg/dL (60-115); Potassium 4.5 mmol/L (3.3-5.1); Sodium 141 mmol/L (135-145); Total Protein 6.4 g/dL (6.5-8.0)
[2024-07-15] MEDS: Bacitracin Oint 0.9 GM PACKET 1 APPL TOPICAL (16:25)
[2024-07-15] MEDS: Diphth,Pertus(ACell),Tet Adult 0.5 ML SYRINGE IM (16:25)
[2024-07-15 17:00] VITALS: BP 169/57; PULSE 61; RESP 18; TEMP 36.6; O2SAT 100
[2024-07-15 17:07] LABS: Glucose, Whole Blood 92 mg/dL (60-115)
== END 2024-07-15 17:06 | disposition home or self-care (01) ==
PROVIDERS: Emergency Provider Emergency Medicine Emergency Medical Services; PCP Internal Medicine
DX: S60.132A Contusion of left middle finger with damage to nail, initial encounter (principal); W19.XXXA Unspecified fall, initial encounter; Y93.9 Activity, unspecified; Y92.89 Other specified places as the place of occurrence of the external cause; Y99.9 Unspecified external cause status; R55 Syncope and collapse; E11.9 Type 2 diabetes mellitus without complications; I10 Essential (primary) hypertension; I48.0 Paroxysmal atrial fibrillation; Z79.01 Long term (current) use of anticoagulants; Z79.899 Other long term (current) drug therapy; Z23 Encounter for immunization
CPT/HCPCS: 36415; 70450; 72125; 73130; 80053; 82947; 84484; 85025; 90471; 90715; 93005; 99283; 99284

== ENCOUNTER → 2024-07-15 13:58 | Outpatient (BNV) | payer MEDICARE, SELFPAY | PROVIDERS: Emergency Provider Emergency Medicine Emergency Medical Services; PCP Internal Medicine; Visit Provider Internal Medicine | DX: I49.9 Cardiac arrhythmia, unspecified (principal); R00.1 Bradycardia, unspecified | CPT/HCPCS: 93010 ==

== ENCOUNTER → 2024-07-15 14:34 | Outpatient (BNV) | payer MEDICARE, SELFPAY | PROVIDERS: Emergency Provider Emergency Medicine Emergency Medical Services; PCP Internal Medicine; Visit Provider Radiology Diagnostic Radiology | DX: S19.9XXA Unspecified injury of neck, initial encounter (principal); R42 Dizziness and giddiness; S60.221A Contusion of right hand, initial encounter; S60.222A Contusion of left hand, initial encounter | CPT/HCPCS: 70450; 72125; 73130 ==

== ENCOUNTER 2024-08-31 12:45 | Outpatient (AMB) | payer MEDICARE, SELFPAY ==
--- OUTSIDE RECORDS SUMMARY | 2024-08-31 12:48 | XMS_ITS | Patient Health Record ---
Author Organization [facility] Address [address] [place] [address] Care Team Providers Care Direct Casting Operator Name Role Phone Waylon Diaz MD Primary Care Provider Blair Nielson Jr Unavailable [phone] Results Component Value Reference Range Notes Prothrombin Time INR Reviewed date:04/23/2024 04:11:29 PM Interpretation: Performing Lab:[facility], [address] [place] [id number] Notes/Report: Prothrombin Time 13.9 10.9-12.4 SEC INTERNATIONAL [...] (Not yet reviewed by provider) Interpretation: Performing Lab:[facility], [address] [place] [id number] Notes/Report: --- Name: Vidal Patton Age/Sex: 83/M : 1940 Unit#: [id number] Attend Dr: Lorna Julien NP Re04/21/24 Status : ADM IN Location: [facility] 444-2 Disch: --- SPEC : [id number] RECD: 04/23/241505 STATUS: VANI CONROY NUM: [id number] RHONDA: 04/23/24-1403 [facility] DR: Vidal Olivera MD ENTERED: 04/23/24- 14 [...] AB/PAS stains Copies To: Waylon Diaz MD [address] [address] Lorna Julien NP [address] [place] [address] CONTINUED ON NEXT PAGE --- Name: Vidal Patton Age/Sex: 83/M : 1940 Unit#: [id number] Attend Dr: Lorna Julien PRODUCT GRADER Re04/21/24 Status : ADM IN Location: [facility] 444-2 Disch: --- SPEC : [id number] RECD: 04/23/241505 STATUS: VANI CONROY NUM: [id number] RHONDA: 04/23/24-1403 [facility] DR: Vidal Olivera MD ENTERED: 04/23/24 14 SP TYPE: Surgical OTHR DR: Waylon Diaz MD, Jackie NP ORDERED: HE Stain/3, Gross Micro L4, IHC, Special st. 2, H. pylori, AB/PAS Copies To: (Continued) Vidal Olivera MD [facility] [address] [place] [address] --- Signed (signature on file) Turner Moralse MD 04/25/24 0942 --- END OF REPORT [...] Problem Status W/U Status Risk Notes Problem [id number] Colon cancer screening (Z12.11) Active confirmed Problem Anorexia (14938037) Anorexia (R63.0) Active confirmed Encounters Encounter Location Date Provider Diagnosis [facility] [address] [place] [address] 04/30/2024 Blair Espinoza Jr Plan Of Treatment Pending Test Test Name Order Date Pathology 04/23/2024 Next Appt Details Provider Name:Blair rodriguez Jr, 09/27/2024 02:55:00 PM, [address], [address], [place], [address], Insurance Providers Payer Name Payer Address Payer Phone Subscriber Number Group Number Insured Name Patient Relationship to Insured Coverage Start Date Coverage End Date MEDICARE OF [place] [address] [place] [id number] VIDAL PATTON Self - patient is the insured [employer] ATTN CLAIMS [address] [place] [address] [id number] VIDAL PATTON Self - patient is the insured Medical (General) History Medical History History ICD Code hypertension diabetes mellitus peripheral vascular disease elevated cholesterol Surgical History Surgery Date(Month/Year) stent placement-right leg hernia repair cataract removal
--- NOTE | 2024-08-31 13:06 | MHC.OFFVIS ---
Vital Signs 08/31/24 13:08 Height 5 ft 11 in Weight 176 lb BMI 24.5 BP 122/60 Blood Pressure Location Lt brachial Position Sitting Pulse 55 Pulse Source Pulse Oximeter Pulse Oximetry (%) 97 Oxygen Delivery Method Room Air Intake Visit Reasons: Interstitial lung disease Allergies No Known Allergies [No Known Allergies*] Allergy (Verified 08/31/24 13:09) HPI HPI Interstitial lung disease: Details: 84-year-old gentleman, nonsmoker, referred for evaluation of abnormal CT chest that demonstrated mild peripheral interstitial changes consistent with early UIP. Patient denies any pulmonary related concerns or complaints. He also has no prior personal or family history of lung disease. Patient has been employed previously with no exposure to industrial dusts. Results of outside CT chest reviewed, underlying mild UIP like changes with multiple pulmonary nodules up to 6 mm. [facility] Medical History Anemia Unexplained weight loss Paroxysmal atrial flutter DM2 (diabetes mellitus, type 2) Hypothyroid HTN (hypertension) Social History Household Members: Spouse Housing: Apartment Do you presently have visiting nurse or other home services: No Alcohol intake: never Patient Tobacco Use Status: Current someday Tobacco user Tobacco use type: Cigar Advance Directives Date on File: 01/10/20 service: No Review of Systems Const Denies daytime sleepiness, Denies excessive sweating, Denies fatigue, Denies fever(s), Denies lethargy, Denies malaise, Denies night sweats, Denies snoring and Denies weight loss Eyes Denies blurry vision and Denies itchy eyes ENT Denies nasal congestion, Denies post nasal drip, Denies sinus pain, Denies sinus pressure and Denies other ( Thrush) Card Denies chest pain, Denies pedal edema, Denies dyspnea, Denies orthopnea and Denies paroxysmal nocturnal dyspnea Resp Denies cough, Denies hemoptysis, Denies excessive phlegm production, Denies dyspnea, Denies snoring and Denies wheezing GI Denies abdominal pain and Denies heartburn Musc Denies myalgias, Denies arthralgias and Denies joint swelling Skin/Breast Denies rash Neuro Denies memory loss and Denies seizure-like activity Psych Denies abnormal sleep pattern, Denies anxiety and Denies memory loss Endo Denies excessive sweating, Denies fatigue and Denies heat intolerance Los/Lymph Denies easy bruising Aller/Immun Denies itchy eyes, Denies seasonal rhinorrhea and Denies wheezing Physical Exam Vital Signs: Last Vital Signs Pulse 55 08/31/24 13:08 BP 122/60 08/31/24 13:08 Pulse Ox 97 08/31/24 13:08 Oxygen Delivery Method Room Air 08/31/24 13:08 BMI result Body Mass Index 24.5 Const General: no acute distress and alert Nutritional Appearance: not obese Orientation/consciousness: Other orientation findings ( oriented) HEENT Head: Yes atraumatic Eyes General: appearance normal, both eyes and all related structures Sclerae: sclerae normal EOM: EOMs intact bilaterally Neck Neck: Yes supple Lymphatic: no lymphadenopathy noted Resp Effort & Inspection: normal respiratory effort and no use of accessory muscles Auscultation: clear to auscultation bilaterally Cardio Rate: regular rate Rhythm: regular rhythm Heart sounds: no gallops, no murmurs and no rubs Skin General skin exam: other ( warm) Extrem General: No clubbing, No cyanosis and No edema Assessment & Plan Assessment & Plan (1) Abnormal CT scan, chest: Code(s): R93.89 - Abnormal findings on diagnostic imaging of other specified body structures Category: Medical Plan: Multiple pulmonary nodules 6 mm and under and a low risk patient, will repeat CT chest in 12 months. (2) ILD (interstitial lung disease): Code(s): J84.9 - Interstitial pulmonary disease, unspecified Category: Medical Plan: Results of CT chest reviewed, likely underlying UIP/IPF, mild, asymptomatic. Will continue to monitor clinically and with imaging. Orders: Orders CT chest wo IV con 08/26/25 J84.9 - Interstitial pulmonary disease, unspecified Coding Level of Care Code New Pt Level 4 (38505) Diagnoses Abnormal CT scan, chest R93.89 ILD (interstitial lung disease) J84.9
[2024-08-31 13:08] VITALS: BP 122/60; PULSE 55; O2SAT 97; BMI 24.5
== END 2024-08-31 13:28 | disposition home or self-care (01) ==
LOC: HO.HPS 12:46
PROVIDERS: PCP Internal Medicine; Referring Provider Internal Medicine; Visit Provider Internal Medicine Pulmonary Disease
DX: R93.89 Abnormal findings on diagnostic imaging of other specified body structures (principal); J84.9 Interstitial pulmonary disease, unspecified
CPT/HCPCS: 99204

== ENCOUNTER → 2024-08-31 12:45 | Outpatient (BNVA) | payer MEDICARE, SELFPAY | PROVIDERS: PCP Internal Medicine; Referring Provider Internal Medicine; Visit Provider Internal Medicine Pulmonary Disease | DX: J84.9 Interstitial pulmonary disease, unspecified (principal); R93.89 Abnormal findings on diagnostic imaging of other specified body structures | CPT/HCPCS: 99202 ==

== ENCOUNTER 2024-11-06 11:00 | Outpatient (RCR) | payer MEDICARE, SELFPAY | END 2024-12-04 09:48 | disposition home or self-care (01) | LOC: HO.PT 11:00 | PROVIDERS: PCP Internal Medicine; Visit Provider Internal Medicine | DX: R26.89 Other abnormalities of gait and mobility (principal); R29.898 Other symptoms and signs involving the musculoskeletal system | CPT/HCPCS: 97110; 97112; 97116; 97162; 97530; 97535 ==

== ENCOUNTER 2025-02-19 07:26 | Outpatient (REF) | payer MEDICARE, SELFPAY ==
--- OUTSIDE RECORDS SUMMARY | 2023-11-03 09:45 | XMS_ITS ---
Author Organization [facility] Address [address] [place] [address] Care Team Providers Care Audit Director Name Role Phone Joe BAUM, Waylon Primary Care Provider Shelley Julian [phone] Hoffman Encounters Encounter Location Date Provider Diagnosis [facility] [address] [place] [address] 11/03/2023 Shelley Xavier Plan Of Treatment Next Appt Details Provider Name:Shelleyred Xavier , 04/22/2025 10:30:00 AM, [address] [place], [address], Progress Notes * ABDI ElanDOB:1940 (84 yo M)Acc No.[id number]:11/03/2023 Progress Note Patient: Elan ENCARNACION Provider: Candy Xavier DPM :1940 A ge:83 Y S ex:Male Date:11/03/2023 Address:[address] [place] [id number] Pcp:Waylon Diaz MD Subjective: * Chief Complaints: [...] 11/03/2023 Generated for Tucker sue/Erin/Halina on: 1 04/22/2024 07:33 AM EST
--- OUTSIDE RECORDS SUMMARY | 2023-11-14 10:00 | XMS_ITS ---
Author Organization [facility] Address [address] [place] [address] Care Team Providers Care Project Program Manager Name Role Phone Joe BAUM, Waylon Primary Care Provider Shelley Julian [phone] Encounters Encounter Location Date Provider Diagnosis [address] [address] 11/14/2023 Shelley Xavier Plan Of Treatment Next Appt Details Provider Name:Shelley A Duc , 04/22/2025 10:30:00 AM, [address] [place] [address], [phone], Progress Notes * ABDI ElanDOB:1940 (84 yo M)Acc No.[id number]:11/14/2023 Progress Note Patient: Elan ENCARNACION Provider: Candy Xavier DPM :1940 A ge:83 Y S ex:Male Date:11/14/2023 Address:[address] [place] [address] hanhDudley, [id number] Pcp:Waylon Diaz MD Subjective: * Chief Complaints: [...] 11/14/2023 Generated for Tucker sue/Erin/Halina on: 1 04/22/2024 07:32 AM EST
--- OUTSIDE RECORDS SUMMARY | 2024-01-26 09:30 | XMS_ITS ---
Author Organization [facility] Address [address] [place] [address] Care Team Providers Care Aircraft Engine Dismantler Name Role Phone Joe BAUM, Waylon Primary Care Provider Shelley Julian [phone] Encounters Encounter Location Date Provider Diagnosis [address] [address] 01/26/2024 Shelley Xavier Plan Of Treatment Next Appt Details Provider Name:Shelley A Duc , 04/22/2025 10:30:00 AM, [address] [place] [address], [phone], Progress Notes * ABDI ElanDOB:1940 (84 yo M)Acc No.[id number]:01/26/2024 Progress Note Patient: Elan ENCARNACION Provider: Candy Xavier DPM :1940 A ge:83 Y S ex:Male Date:01/26/2024 Address:[address] [place] [phone] Pcp:Waylon Diaz MD Subjective: * Chief Complaints: [...] Date: Generated for Tucker sue/Erin/Halina on: 1 04/22/2024 07:32 AM EST
--- OUTSIDE RECORDS SUMMARY | 2024-04-30 09:35 | XMS_ITS ---
Author Organization [facility] Address [address] [place] [address] Care Team Providers Care B2B Outside Sales Representative Name Role Phone Joe BAUM, Waylon Primary Care Provider Blair Nielson Jr Encounters Encounter Location Date Provider Diagnosis [facility] [address] [place] [address] 04/30/2024 Blair Espinoza Jr Plan Of Treatment Next Appt Details Provider Name:Blair rodriguez Jr, 04/01/2025 10:40:00 AM, [address], [address], [place], [address], Progress Notes * VIDAL PEREZDOB: 0 (84 yo M)Acc No.[id number]:04/30/2024 Progress Notes Patient: VIDAL ENCARNACION Sharron Provider: Veda Espinoza MD :1940 A ge:83 Y S ex:Male Date:04/30/2024 Address:[address] [place] [address] [id number] Pcp:Waylon Diaz MD Billing Information: * Procedure Codes: * The named appointment provid er may or may not be the originator of this progress note, and it is not deemed complete until electronically signed by the appointment provider. Sign off status: Pending * Provider: Veda Espinoza MD Date: 0 04/30/2024 Generated for Savannahi vikram/Erin/eTransmitting on: 1 04/22/2024 07:32 AM EST
--- OUTSIDE RECORDS SUMMARY | 2024-12-17 05:00 | XMS_ITS ---
Author Organization [facility] Address [address] [facility] [place] [address] Care Team Providers Care Taker Down Name Role Phone Waylon Diaz MD Primary Care Provider Unavaila anson Shelley Xavier Unavailable [phone] Medications Medication SIG (Take, Route, Frequency, Duration) [...] Active Encounters Encounter Location Date Provider Diagnosis [facility] [address] [address] 12/17/2024 Shelley Xavier Plan Of Treatment Next Appt Details Provider Name:Shelley Xavier , 04/22/2025 10:30:00 AM, [address] [place] [address], [phone], Progress Notes * Elan PATTONDOB:1940 (84 yo M)Acc No.[id number]:12/17/2024 Progress Note Patient: Elan ENCARNACION Provider: Candy Xavier DPM :1940 A ge:84 Y S ex:Male Date:12/17/2024 Address:[address] [place], [place] [address] Pcp:Waylon Diaz MD Subjective: * Chief Complaints: [...] 12/17/2024 Generated for Tucker sue/Erin/Halina on: 1 04/22/2024 07:32 AM EST
--- OUTSIDE RECORDS SUMMARY | 2025-02-20 07:32 | XMS_ITS | Encounter Summary ---
Author Organization [facility] Address [address] [facility] [address] [place] [address] Phone Care Team Providers Care Facilities Maintenance Assistant Name Role Phone Waylon Diaz MD Unavailable Waylon Diza MD Primary Care Provider [phone] Kimani Sarabia MD Unavailable Ashley Ortez MD Unavailable Shelley Xavier DPM Unavailable [phone] Encounter Details Date Type Department Care Team (Late st Contact Info) Description 01/25/2025 Orders Only [facility] Medical [facility] Internal Medicine [address] [facility] [address] Provider, MD James [address] [place] [address] Social History Tobacco Use Types Packs/Day Years Used Date Smoking Tobacco: Some Days Cigarettes Last attempted to quit: 1989 Cigars Smokeless Tobacco: Never Comments:20 small cigars a m onth-noted 01/24/23; give up cigarette in the late 2 Small cigars QD-noted 12/26/24 Alcohol Use Standard Drinks/Week Comments Never 0 (1 standard drink = 0.6 oz pur e alcohol) Education Answer Date Recorded Are you interested in more education? Not on hermelinda e 07/23/2022 Are you concerned about learning? Not on file 07/23/2022 No 07/23/2022 No 07/23/2022 Digital Access Answer Date Recorded No 08/20/2022 No 08/20/2022 Reliable internet access at home? Not on file 08/20/2022 Device with a working camera? Not on file Intimate Partner Violence Answer Date R ecorded Denied Basic Needs Not on file 07/05/2024 In the past 12 months have y ou been in a relationship with a person who hurts, threatens, or tries to control you? No 07/05/2024 Worried food would run out Not on file 07/05 In the past 12 months have y ou been in a relationship with a person who hurts, threatens, or tries to control you? No 07/05/2024 Sex and Gender Information Value Date Recorded Sex Assigned at Male 10/01/2021 4:07 PM EDT Legal Sex Male 10:13 PM EDT Gender Identity Male 10/01/2021 4:07 PM EDT Sexual Orientation Straight 10/01/2021 4: 07 PM EDT documented as of this encounter Plan of Treatment Upcoming Encounters Date Type Department Care Team (Late st Contact Info) Description 04/22/2025 11:00 AM EST Office Visit [facility] Internal Medicine [address] [place] [address] Wayoln Diaz MD [address] [place] [address] [email or web address] documented as of this encounter Procedures Procedure Name Priority Date/Time Associated Diagnosis Comments OUTSIDE IMAGING Routine 01/25/2025 3:46 PM EDT documented in this encounter Results * Outside Imaging Report Only (01/25/2025 3:46 PM EDT) us Historical Provider MD GARCIA XR CHEST Final Res ult documented in this encounter Visit Diagnoses Not on filedocumented in this encounter Additional Health Concerns Assessment Noted Time PHQ-2 Depression Total Score: 0 07/06/19 25 9:03 AM EDT documented as of this encounter Care Teams Facilities Maintenance Assistant Relationship Specialty Start Date End Date Waylon Diaz MD [address] [place] [address] [email or web address] PCP - General Internal Medicine 03/15/17 Waylon Diaz MD [address] [place] [address] [email or web address] Insurance Assigned Provider 07/02/23 Kimani Sarabia MD [address] [place] [address] Ophthalmology 09/13/19 Ashley Ortez MD [address] [place] [address] [email or web address] Cardiology 08/08/20 Shelley Xavier DPM [address] [place] [address] Podiatry 08/08/20 documented as of this encounter Additional Source Comments The information contained in this document represents components of the legal health record. It is not the complete legal health record.[facility]
--- OUTSIDE RECORDS SUMMARY | 2025-02-20 07:32 | XMS_ITS | Encounter Summary ---
Author Organization [facility] Address [address] [facility] [address] [place] [address] Phone Care Team Providers Care Metal Riveting Machine Operator Name Role Phone Waylon Diaz MD Unavailable [phone] Waylon Diaz MD Primary Care Provider [phone] Kimani Sarabia MD Unavailable [phone] Ashley Ortez MD Unavailable [phone] Shelley Xavier DPConsuelo Unavailable [phone] Reason for Visit * Reason Onset Date Comments MRI ordered 02/11/2025 Encounter Details Date Type Department Care Team (Late Contact Info) Description 02/11/2025 Telephone [employer] [facility] Internal Medicine [address] [place], [place] [phone] Waylon Diaz MD [address] [place] [address] [email or web address] MRI ordered Social History Tobacco Use Types Packs/Day Years Used Date Smoking Tobacco: Some Days Cigarettes Last attempted to quit: 1989 Cigars Smokeless Tobacco: Never Comments:20 small cigars a m onth-noted 01/24/23; give up cigarette in the late 3 Small cigars QD-noted 02/08/25 Alcohol Use Standard Drinks/Week Comments Never 0 [...] PM EDT documented as of this encounter Progress Notes * Marco Pina - 02/11/2025 2:32 PM EST Faxed MRI order to [facility] for scheduling with confirmation receipt received. * Marco Pina - 02/11/2025 12:21 PM EST MRI ordered to be done at [facility] to authorization dept to see if PA needed then to fax for scheduling. documented in this encounter Plan of Treatment Upcoming Encounters Date Type Department Care Team (Late st Contact Info) Description 04/22/2025 11:00 AM EST Office Visit [facility] Medical [facility] Internal Medicine [address] [place] [address] Waylon Diaz MD [address] [place] [address] [email or web address] documented as of this encounter Visit Diagnoses Not on filedocumented in this encounter Additional Health Concerns Assessment Noted Time PHQ-2 Depression Total Score: 0 07/06/19 25 9:03 AM EDT documented as of this encounter Care Teams Metal Riveting Machine Operator Relationship Specialty Start Date End Date Waylon Diaz MD [address] [place] [address] [email or web address] PCP - General Internal Medicine 03/15/17 Waylon Diaz MD [address] [place] [address] [email or web address] Insurance Assigned Provider 07/02/23 Kimani Sarabia MD [address] [place] [address] Ophthalmology 09/13/19 Ashley Ortez MD [address] [place] [address] [email or web address] Cardiology 08/08/20 Shelley Xavier DPM [address] [place] [address] Podiatry 08/08/20 documented as of this encounter Additional Source Comments The information contained in this document represents components of the legal health record. It is not the complete legal health record.[facility]
--- OUTSIDE RECORDS SUMMARY | 2025-02-20 07:32 | XMS_ITS | Encounter Summary ---
Author Organization [facility] Address [address] [address] [place] [address] Phone Care Team Providers Care Inside Sales Territory Manager Name Role Phone Waylon Diaz MD Unavailable [phone] Waylon Diaz MD Primary Care Provider [phone] Kimani Sarabia MD Unavailable Ashley Ortez MD Unavailable [phone] Shelley Xavier DPConsuelo Unavailable [phone] Reason for Visit * Reason Onset Date Comments Appointment 01/31/2025 Encounter Details Date Type Department Care Team ([facility] st Contact Info) Description 01/31/2025 Telephone [facility] [address] [place], [place] [id number] [email or web address] Appointment Social History Tobacco Use Types Packs/Day Years [...] encounter Progress Notes * Marco Pina - 01/31/2025 4:25 PM EST Confirmed with patient. * Britney Ge - 01/31/2025 4:21 PM EST Pt called back in. R/s to 04/22. [facility] Central Support Contour Grinder (Please do not reply to this user; this inbox is not monitored.) Thank you. * Eli Guzman - 01/31/2025 4:06 PM EST Patient called in stating he was called regarding an appointment and is returning the call. Please contact and advise. Central Support Contour Grinder (Please do not reply to this user; this inbox is not monitored.) Thank you. documented in this encounter Plan of Treatment Upcoming Encounters Date Type Department Care Team (Late st Contact Info) Description 04/22/2025 11:00 AM EST Office Visit [facility] Internal Medicine [address] [place] [address] Waylon Diaz MD [address] [place] [address] [email or web address] documented as of this encounter Visit Diagnoses Not on filedocumented in this encounter Additional Health Concerns Assessment Noted Time PHQ-2 Depression Total Score: 0 07/06/19 25 9:03 AM EDT documented as of this encounter Care Teams Inside Sales Territory Manager Relationship Specialty Start Date End Date Waylon Diaz MD [address] [place] [address] [email or web address] PCP - General Internal Medicine 03/15/17 Waylon Diaz MD [address] [place] [address] [email or web address] Insurance Assigned Provider 07/02/23 Kimani Sarabia MD [address] [place] [address] Ophthalmology 09/13/19 Ashley Ortez MD [address] [place] [address] [email or web address] Cardiology 08/08/20 Shelley Xavier DPM [address] [place] [address] Podiatry 08/08/20 documented as of this encounter Additional Source Comments The information contained in this document represents components of the legal health record. It is not the complete legal health record.[facility]
--- OUTSIDE RECORDS SUMMARY | 2025-02-20 07:33 | XMS_ITS | Encounter Summary ---
Author Organization [facility] Address [address] [facility] [address] [place] [address] Phone Care Team Providers Care In Shop Service Technician Name Role Phone Waylon Diaz MD Unavailable [phone] Waylon Diaz MD Primary Care Provider [phone] Kimani Sarabia MD Unavailable [phone] Ashley Ortez MD Unavailable [phone] Shelley Xavier DPM Unavailable [phone] Encounter Details Date Type Department Care Team (Late st Contact Info) Description 05/01/2024 Procedure [facility] Scan - [address] [address] Social History Tobacco Use Types Packs/Day Years Used Date Smoking Tobacco: Some Days Cigarettes Last attempted to quit: 1989 Cigars Smokeless Tobacco: Never Comments:20 small cigars a m onth-noted 01/24/23; give up cigarette in the late 2 cigars QD-noted 01/03/24 Alcohol Use Standard Drinks/Week Comments Never 0 [...] with a working camera? Not on file Sex and Gender Information Value Date Recorded Sex Assigned at Male 10/01/2021 4:07 PM EDT Legal Sex Male 10:13 PM EDT Gender Identity Male 10/01/2021 4:07 PM EDT Sexual Orientation Straight 10/01/2021 4: 07 PM EDT documented as of this encounter Plan of Treatment Upcoming Encounters Date Type Department Care Team (Late st Contact Info) Description 04/22/2025 11:00 AM EST Office Visit [facility] Internal Medicine [address] [place] [address] Waylon Diaz MD [address] [place] [address] [email or web address] documented as of this encounter Visit Diagnoses Not on filedocumented in this encounter Additional Health Concerns Assessment Noted Time PHQ-2 Depression Total Score: 0 01/03/20 24 9:27 AM EDT documented as of this encounter Care Teams In Shop Service Technician Relationship Specialty Start Date End Date Waylon Diaz MD [address] [place] [address] [email or web address] PCP - General Internal Medicine 03/15/17 Waylon Diaz MD [address] [place] [address] Insurance Assigned Provider 07/02/23 Kimani Sarabia MD [address] [place] [address] Ophthalmology 09/13/19 Ashley Ortez MD [address] [place] [address] Cardiology 08/08/20 Shelley Xavier DPM [address] [place] [address] Podiatry 08/08/20 documented as of this encounter Additional Source Comments The information contained in this document represents components of the legal health record. It is not the complete legal health record.[facility]
--- OUTSIDE RECORDS SUMMARY | 2025-02-20 07:33 | XMS_ITS | Patient Health Record ---
Author Organization [facility] Address [address] [place] [address] Care Team Providers Care Heel Former Name Role Phone Waylon Diaz MD Primary Care Provider Blair Nielson Jr Unavailable Allergies No Known Allergies Results Component Value Reference Range Flag Notes Prothrombin Time INR Reviewed date:04/23/2024 04:11:29 PM Interpretation: Performing Lab:[facility], [address] [place] [phone] Notes/Report: Prothrombin Time 13.9 10.9-12.4 SEC H INTERNATIONAL NORM RATIO 1.2 0.9-1.1 H INTERNATIONAL NORMALIZED RATIO (INR) REFERENCE RANGES Reference [...] (Not yet reviewed by provider) Interpretation: Performing Lab:[address] [address] Notes/Report: Reason For Referral No Information Medications Medication SIG (Take, Route, Frequency, Duration) Notes Start Date End Date Status Tetracycline HCl 500 MG Capsule 1 capsule on an empty stomach Orally 4 times daily; Duration: 14 days 11/21/2024 Active Omeprazole 20 MG Capsule Delayed Release 1 Orally Twice daily; Duration: 14 days 11/21/2024 Active Bismuth Subsalicylate 525 MG Tablet 1 Orally 4 times daily; Duration: 14 days 11/21/2024 Active metroNIDAZOLE 500 MG Tablet 1 tablet Ora lly Three times a day; Duration: 14 days 11/21/2024 Active Lisinopril 10 MG Tablet 1 tablet Orally Once a day Active Atorvastatin Calcium 10 MG Tablet 1 tablet Orally Once a day Active Metoprolol Tartrate 25 MG Tablet TAKE 1 TABLET BY MOUTH TWICE A DAY Oral; Duration: 90 Days Active Omeprazole 40 MG Capsule Delayed Release TAKE 1 CAPSULE (40 MG TOTAL) BY MOUTH DAILY. Oral; Duration: 90 Days Active Levothyroxine Sodium 137 MCG Capsule 1 tablet on an empty stomach in the morning Orally Once a day Active Lantus 100 UNIT/ML Solution 57 units Subcutaneous BID Active metFORMIN HCl 500 MG Tablet 1 tablet wit h meals Orally Twice a day Active Xarelto 20 MG Tablet 1 tablet with food Orally Once a day Active Admelog 100 UNIT/ML Solution as directed Injection Active Immunizations Vaccine Route Administration Date Status Comme nts Flu vaccine no Preserv 3 and > Unknown 02/24/2016 Admin istered Social History Tobacco Use: Social History Observation Description Date Details (start date - stop date) Never Smoker NA - NA Social History Drugs/Alcohol: Social Info Question Answer Notes Alcohol Screen Did you have a drink containing alcohol in the past year? No Points 0 Interpretation Negative Tobacco Use: Social Info Question Answer Notes Tobacco Use/Smoking Patient is a nonsmoker Additional Details Category Social Info Options Details Miscellaneous: Marital status: Occupation: works part-time, semi-retired Section Notes: ocassional cigar ocassional cigar Problems Problem Type SNOMED Code ICD Code Onset Dates Problem Status W/U Status Risk Notes Problem Colon cancer screening (856110299) Colon cancer screening (Z12.11) Active confirmed Problem Anorexia (28656711) Anorexia (R63.0) Active confirmed Problem Helicobacter pylori gastrointestinal tract infection (002279451) H. pylori infection (B96.81) Active confirmed Problem Erosive esophagitis (13411160) Erosive esophagitis (K22.10) Active confirmed Problem Duodenal ulcer (62439245) Duodenal ulcer (K26.9) Active confirmed Vital Signs Blood pressure diastolic 77 mm Hg 09/27/2024 Height 72 in 09/27/2024 Blood pressure systolic 111 mm Hg 09/27/2024 Weight 185 lbs 09/27/2024 BMI 25.09 kg/m2 09/27/2024 Encounters Encounter Location Date Provider Diagnosis [facility] [address] [place] [address] 09/27/2024 Blair Espinoza Jr Duodenal ulcer K26.9 ; H. pylori infection B96.81 and Erosive esophagitis K22.10 [facility] [address] [place] [address] [place] [phone] 04/30/2024 Blair Espinoza Jr [facility] [address] [place] [phone] 11/22/2024 Blair Espinoza Jr Assessments Encounter Date Diagnosis (ICD Code) Assessment Notes Treatment Notes Treatment Clinical Notes Section Notes 09/27/2024 H. pylori infection (ICD-10 - B96.81) Currently, he appears to be doing well. He completed treatment with omeprazole for his erosive esophagitis and duodenal ulcer but has not been treated for H. pylori and this will be arranged. Follow-up will be in 6 months. 09/27/2024 Duodenal ulcer (ICD-10 - K26.9) Currently, he appears to be doing well. He completed treatment with omeprazole for his erosive esophagitis and duodenal ulcer but has not been treated for H. pylori and this will be arranged. Follow-up will be in 6 months. 09/27/2024 Erosive esophagitis (ICD-10 - K22.10) Currently, he appears to be doing well. He completed treatment with omeprazole for his erosive esophagitis and duodenal ulcer but has not been treated for H. pylori and this will be arranged. Follow-up will be in 6 months. Plan Of Treatment Pending Test Test Name Order Date Pathology 04/23/2024 Next Appt Details Provider Name:Blair rodriguez Jr, 04/01/2025 10:40:00 AM, [address] [facility], [address], [place], [address], Insurance Providers Payer Name Payer Address Payer Phone Subscriber Number Group Number Insured Name Patient Relationship to Insured Coverage Start Date Coverage End Date MEDICARE OF [facility] [facility] [address] [place] [address] [phone] [id number] VIDAL PEREZ Self - patient is the insured 5 [employer] ATTN CLAIMS [address] [place] [address] [id number] VIDAL PEREZ Self - patient is the insured Medical (General) History Medical History History ICD Code hypertension diabetes mellitus II peripheral vascular disease elevated cholesterol Surgical History Surgery Date(Month/Year) stent placement-right leg hernia repair cataract removal
--- OUTSIDE RECORDS SUMMARY | 2025-02-20 07:33 | XMS_ITS | Clinical Summary ---
Author Organization [facility] Address [address] [place] [phone] Phone Care Team Providers Care Mastic Floor Layer Name Role Phone Waylon Diaz MD Unavailable Waylon Diaz MD Primary Care Provider [phone] Kimani Sarabia MD Unavailable [phone] Ashley Ortez MD Unavailable [phone] Shelley Xavier DPM Unavailable Allergies Active Allergy Reactions Criticality Noted Date Comments Insulin Glargine Other (See Comments) 8 ineffective Medications insulin pen needles, disposable, 32 gauge x 1/4 NdleIndications:D iabetes mellitus 1 each by Miscellaneous route as needed. 100 each 6 018 Active BD ULTRA-FINE JUNAID PEN NEEDLES 32 gauge x 5/32 Ndle 1 EACH BY MISCELLANEOUS ROUTE NEEDED. 6 018 Active insulin syringe-needle U-100 (BD INSULIN SYRINGE MICRO-FINE) 1 mL 28 gauge x 1/2 SyrgIndications:T ype 2 diabetes mellitus with diabetic peripheral angiopathy without gangrene, with long-term current use of insulin Use up to 4 a day for insulin 360 each 3 018 Active FREESTYLE SANDRA 2 READER MiscIndications:T ype 2 diabetes mellitus with diabetic peripheral angiopathy without gangrene, with long-term current use of insulin USE 4 (FOUR) TIMES A DAY BEFORE MEALS AND NIGHTLY. 1 each 022 Active Additional Information Patient not taking.Reported on 02/08/2025 FREESTYLE SANDRA 14 DAY SENSOR kitIndications:Di abetes mellitus 1 each by Miscellaneous route every 14 (fourteen) days. 1 kit 5 Active Additional Information Patient not taking.Reported on 02/08/2025 metoprolol tartrate (LOPRESSOR) 25 MG tablet Take 25 mg by mouth daily. Active aspirin 81 mg Cap Take 1 capsule by mouth daily. Active metFORMIN (GLUCOPHAGE) 500 MG tablet Take 2 tablets (1,000 mg total) by mouth nightly at bedtime. 180 tablet 3 Active levothyroxine (SYNTHROID, LEVOTHROID) 137 MCG tabletIndications :Hypothyroid TAKE 1 TABLET BY MOUTH EVERY MORNING. 90 tablet 3 Active ADMELOG U-100 INSULIN LISPRO 100 unit/mL injection vialIndications:T ype 2 diabetes mellitus with diabetic peripheral angiopathy without gangrene, with long-term current use of insulin Inject under the skin before each meal 3 times daily per sliding scale: 100-200 - 4 units 201-250 - 6 units 251-300- 8 units 301-350 - 10 units 350 or higher - 12 units 80 mL 3 025 Active Additional Information Patient taking differently: Inject under the skin before each meal 2 times daily per sliding scale:100-200 - 4 [id number] - 6 [id number] - 10 [id number] or higher - 12 units, Reported on 02/08/2025 omeprazole (PRILOSEC) 40 MG capsuleIndication s:Esophagitis Take 1 capsule (40 mg total) by mouth daily. 90 capsule 2 025 Active Additional Information Patient taking differently:40 mg OralNightly, Reported on 02/08/2025 FREESTYLE SANDRA 3 PLUS SENSOR DeviIndications:T ype 2 diabetes mellitus with diabetic peripheral angiopathy without gangrene, with long-term current use of insulin 1 Units by Miscellaneous route every 14 (fourteen) days. 6 each Active blood sugar diagnostic Strp stripsIndications :Type 2 diabetes mellitus with diabetic peripheral angiopathy without gangrene, with long-term current use of insulin 1 each by Miscellaneous route as needed (PRN when sensor fails). 100 strip 3 025 Active LANTUS U-100 INSULIN 100 unit/mL injection vialIndications:T ype 2 diabetes mellitus with diabetic peripheral angiopathy without gangrene, with long-term current use of insulin INJECT 24 UNITS IN THE AM AND 20 UNITS IN THE PM 30 mL 1 025 Active blood-glucose,rec eiver,cont (FREESTYLE SANDRA 3 READER) Misc 1 Units by Miscellaneous route every 14 (fourteen) days. 1 each 025 Active atorvastatin (LIPITOR) 40 MG tabletIndications :Mixed hyperlipidemia TAKE 1 TABLET BY MOUTH EVERY DAY 90 tablet 3 025 Active XARELTO 20 mg TabIndications:Pa roxysmal atrial fibrillation Take 1 tablet (20 mg total) by mouth daily. 90 tablet 3 025 Active lisinopril (PRINIVIL,ZESTRIL ) 20 MG tabletIndications :Benign essential hypertension Take 1 tablet (20 mg total) by mouth 2 (two) times a day. 180 tablet 3 025 Active XARELTO 20 mg Tab 1 TABLET WITH FOOD ONCE A DAY ORALLY 30 DAY(S) 6 018 2024 Discontinued(R eorder) lisinopril (PRINIVIL,ZESTRIL ) 10 MG tabletIndications :Benign essential hypertension Take 2 tablets (20 mg total) by mouth daily. 180 tablet 3 025 2024 Discontinued Active Problems Problem Noted Date Diagnosed Date Bradycardia 05/08/2024 Assessment & Plan (05/08/2024 3:00 PM EST): Patient presenting today bradycardic with a heart rate of 56. EKG obtained, sinus rhythm with 1 PAC. No evidence of atrial fibrillation/heart block. No ST elevation/depression. Likely in the setting of his double dose of metoprolol. Discussed that he should only be taking 25 mg daily as prescribed. Discussed that he should not change the dosing of any of his medications without discussing with the medical provider first. Discussed the case with Dr. Diaz, he is in agreement. Unintentional weight loss 05/01/2024 Assessment & Plan (05/01/2024 12:11 PM EST): Patient noting 25 pound weight loss unintentionally. He does state before he was not eating a lot as he had a decreased appetite. He now notes that his appetite is starting to leaf size picker and he is eating a lot more. He did have a workup in the hospital including a CT abdomen pelvis as well as CT chest. CT chest showed mild groundglass posteriorly in the right lower lobe with differential including mild pneumonitis. Recommendation to consider attention on follow-up to ensure resolution. CT abdomen pelvis showed nonspecific wall thickening of the distal stomach and duodenum. He did have an endoscopy done by GI which showed duodenal bulb ulcer, duodenitis, gastritis, and hiatal hernia with associated erosive esophagitis. He was started on omeprazole 40 mg daily, does note no reflux symptoms today. -CT chest ordered to further workup resolution of of right lower lobe pneumonitis. Postural dizziness with presyncope 05/01/2024 Assessment & Plan (05/01/2024 12:09 PM EST): Positive orthostatics, presyncope which led to hospitalization. Discontinued spironolactone and lisinopril, decrease metoprolol to 25 mg daily. Orthostatics remain positive in the office. Discussed with Dr. Diaz, he is okay with the discontinuation of spironolactone and lisinopril and the decrease of metoprolol to 25 mg daily as systolic blood pressure on orthostatics was within normal limits. EKG obtained in the office with sinus rhythm, 2 PACs, no atrial fibrillation. No ST elevation or depression. No evidence of heart block. Vitreous hemorrhage, right eye 05/18/2019 Paroxysmal A-fib 12/02/2018 Assessment & Plan (05/01/2024 12:06 PM EST): Restarted those Xarelto on 04/26/2024. On metoprolol 25 mg daily. EKG obtained in the office which showed sinus rhythm with 2 PACs, no evidence of A-fib. No ST elevation or depression. Type 2 diabetes mellitus wit h diabetic peripheral angiopathy without gangrene, with long-term current use of insulin 04/28/2018 Assessment & Plan (05/08/2024 3:00 PM EST): Patient with a history of type 2 diabetes, recently increased Lantus to 20 units twice daily. He notes that his blood sugar has been all over the place, with his most recent fasting blood sugar this morning in the 500s, yesterday's fasting blood sugar 64. Patient states that he is compliant with his Lantus and with his insulin lispro and metformin. Asymptomatic. Discussed the case with Dr. Diaz, will increase Lantus to 24 units twice daily. Discussed the importance of compliance with the patient. Discussed ER protocol including dizziness, chest pain, shortness of breath. Advised the patient to continue monitoring his blood pressure at home and call the office for any extreme abnormal numbers. Assessment & Plan (05/01/2024 12:14 PM EST): Patient noting decrease in the Lantus to 15 units twice daily while in the hospital, he has been taking his fasting blood sugar in the morning and it has been consistently in the 300s. No dizziness or syncope. Denies hypoglycemic episodes. Discussed with Dr. Diaz, will increase Lantus to 20 units twice daily x 1 week. Will follow-up in the office in 1 week to reassess fasting blood sugars, if still elevated, potential to increase to 25 units twice daily. Patient advised to continue metformin 1000 mg nightly. Discussed the importance of taking this medication and not having missed doses. Discussed sliding scale for his insulin lispro, they report that they are going to be more clear with their sliding scale and make it more available. He does note compliance with a sliding scale. Essential hypertension 05/02/2017 Assessment & Plan (05/08/2024 2:57 PM EST): Patient presents to the office today with a blood pressure of 176/62 while seated. Repeat blood pressure while standing 162/64. Patient does note that he has been taking his blood pressure at home and it has been elevated so he took 2 of his metoprolol (total 50 mg) without the discussion with a medical provider. Discussed the case with Dr. Diaz, will reinitiate lisinopril 5 mg daily. Discussed side effects. Dr. Diaz would like to follow-up with the patient in 4 weeks for reassessment. Assessment & Plan (05/01/2024 12:04 PM EST): Spironolactone and lisinopril discontinued. Metoprolol decreased to 25 mg daily. Blood pressure elevated while supine, systolics within normal limits with standing and sitting. Orthostatics positive with a 26 mmHg difference between systolics with supine and standing. Discussed with Dr. Diaz, will keep blood pressure medications same. Okay to discontinue lisinopril/spironolactone. Okay with metoprolol 25 mg daily. Patient denies dizziness, chest pain, headache. Discussed ER protocol. Hypothyroid 05/02/2017 Assessment & Plan (05/01/2024 12:06 PM EST): Continue levothyroxine 137 mcg daily. Mixed hyperlipidemia 05/02/2017 Assessment & Plan (05/01/2024 12:06 PM EST): Continue atorvastatin 40 mg daily. Nocturia 05/02/2017 Peripheral vascular disease 05/02/2017 Overview (12/12/2023): Dr. Pérez Ramirez at [facility] cardiovascular did LE arterial vascular study 11/03/23 see media scan Diabetes mellitus 05/02/2017 Encounters Date Type Department Care Team Description 02/11/2025 Telephone [facility] [address] [place] [address] Waylon Diaz MD MRI ordered 02/08/2025 4:30 PM EST Office Visit [facility] [address] [place] [address] Waylon Diaz MD Need for prophylactic vaccination and inoculation against influenza (Primary Dx); Ataxia; Mixed stress and urge urinary incontinence; Frequency of micturition; Benign essential hypertension 02/06/2025 Telephone [facility] [address] [place] [address] Waylon Diaz MD concerns 01/31/[address] [id number] Eli Guzman Appointment 01/29/2025 Telephone [facility] [address] [place] [address] Waylon Diaz MD Last office notes 01/25/2025 Orders Only [facility] [address] [place] [address] James Carlson MD 01/25/2025 Refill [facility] [address] [place] [address] Waylon Diaz MD Medication Refill 01/24/2025 Telephone [facility] [address] [place] [address] Waylon Diaz MD 12/28/2024 Telephone [facility] [address] [place] [address] Waylon Diaz MD [facility] meds 12/26/2024 1:12 PM EDT - 12/26/2024 11:59 PM EDT Hospital Encounter [facility] [address] [place] [address] Waylon Diaz MD Discharge Disposition: Home or Self Care 12/26/2024 11:30 AM EDT Office Visit [facility] [address] [place] [address] Waylon Diaz MD Type 2 diabetes mellitus with diabetic peripheral angiopathy without gangrene, with long-term current use of insulin (Primary Dx); Need for prophylactic vaccination and inoculation against influenza; Type 2 diabetes mellitus with both eyes affected by moderate nonproliferative retinopathy and macular edema, with long-term current use of insulin; Nocturia; Anemia, unspecified type 12/21/2024 Refill [facility] [address] [place] [address] Waylon Diaz MD Medication Refill from Last 3 Months Immunizations Immunization Administration Dates Next Due COVID-19 (Pre-01/17) Pfizer Vaccine, mRNA, PF 05/27/2020,05/06/2020 INFLUENZA, SPLIT VIRUS, TRIVALENT PF ,12/26/2018,12/26/2017,01/06,07/01/2015 INFLUENZA, SPLIT VIRUS, TRIV ALENT W/ PRESERVATIVE IM 01/27/2012,02/10/2010 Influenza High-Dose Quadriva lent Preservative Free IM 01/16/2023,01/13/2022,12/27/2020 Influenza High-Dose Trivalen t Preservative Free IM 02/08/2025,01/03/2024,01/12/2019,01/02,01/07/2017,12/30/2015,01/17/2015 ,01/24/2014,12/21/2012 Influenza, Unspecified Formulation 12/28/2010 Pneumococcal conjugate PCV13 02/18/2015 Pneumococcal polysaccharide PPSV23 06/26/2005, RSV Vaccine (monovalent, adjuvanted) 07/15/2023 Td (adult) 5 Lf Tetanus Toxo id, PF, Adsorbed 03/23/2016,06/26/2004 Tdap 07/15/2024 Family History Medical History Relation Comments No Known Problems Father No Known Problems Mother Relation Status Comments Father Mother Social History Tobacco Use Types Packs/Day Years Used Date Smoking Tobacco: Some Days Cigarettes Last attempted to quit: 1989 Cigar Smokeless Tobacco: Never Tobacco Cessation:Ready to Q uit: Not Asked; Counseling Given: Not Answered Comments:20 small cigars a month-noted 01/24/23; give up cigarette in the late [...] Orientation Straight 10/01/2021 4: 07 PM EDT Last Filed Vital Signs Vital Sign Reading Time Taken Comments Blood Pressure 150/50 02/08/2025 4:55 PM EST Pulse 72 02/08/2025 4:33 PM EST Temperature 36.4 C (97.5 F) 02/08/2025 4:33 PM EST Respiratory Rate 30 02/08/2025 4:33 PM EST Oxygen Saturation 98% 02/08/2025 4:33 PM EST Inhaled Oxygen Concentration - - Weight 77.7 kg (171 lb 6.4 oz) 02/08/2025 4:33 P M EST Height 181.5 cm (5' 11.46 ) 02/08/2025 4:[address] Body Mass Index 23.6 02/08/2025 4:33 PM EST Plan of Treatment Upcoming Encounters Date Type Department Care Team (Late st Contact Info) Description 04/22/2025 11:00 AM EST Office Visit [facility] [address] [place] [address] Waylon Diaz MD [address] [place] [address] [email or web address] Health Maintenance Due Date Last Done Comments ZOSTER VACCINES (1 of 2) 1989 COVID-19 VACCINE ( season) 2024 01/13/2022, 03/14/2021, 05/27/2020, Additional history exists HEMOGLOBIN A1C 03/28/2025 12/26/2024, 08/27, 06/12/2024, Additional history exists DIABETIC EYE EXAM 06/27/2025 06/27/2024, , 03/02/2024, Additional history exists DEPRESSION SCREENING 07/05/2025 07/05/2024 TSH LEVEL 07/05/2025 07/05/2024, 05/26, 01/03/2024, Additional history exists BLOOD PRESSURE 08/08/2025 02/08/2025 CREATININE LEVEL 12/26/2025 12/26/2024, , 07/15/2024, Additional history exists POTASSIUM LEVEL 12/26/2025 12/26/2024, 08/27, 07/15/2024, Additional history exists Adult Td,Tdap Booster 07/15/2034 07/15/2024 , 03/23/2016, 06/26/2004 PNEUMOCOCCAL VACCINES (50+ years) Completed 02/18/2015, 06/26/2005, 03/28/1997 RSV VACCINE Completed 07/15/2023 INFLUENZA VACCINE Completed 02/08/2025, , 01/16/2023, Additional history exists HEPATITIS A VACCINES Aged Out No long er eligible based on patient's age to complete this topic HIB VACCINES Aged Out No longer eligi ble based on patient's age to complete this topic MENINGOCOCCAL VACCINES (ACWY) Aged Out No longer eligible based on patient's age to complete this topic MENINGOCOCCAL VACCINES (B) Aged Out N o longer eligible based on patient's age to complete this topic Medical Devices Not on file Procedures Procedure Name Priority Date/Time Associated Diagnosis Comments MRI BRAIN Routine 02/08/2025 5:49 PM EST Ataxia Mixed stress and urge urinary incontinence OUTSIDE IMAGING Routine 01/25/2025 3:46 PM EDT MICROALBUMIN/CREATINI NE RATIO, RANDOM URINE Routine 12/26/2024 1:26 PM EDT Type 2 diabetes mellitus with diabetic peripheral angiopathy without gangrene, with long-term current use of insulin URINALYSIS WITH REFLEX TO URINE CULTURE Routine 12/26/2024 1:26 PM EDT Type 2 diabetes mellitus with diabetic peripheral angiopathy without gangrene, with long-term current use of insulin Nocturia HEMOGLOBIN A1C Routine 12/26/2024 1:11 PM EDT Type 2 diabetes mellitus with diabetic peripheral angiopathy without gangrene, with long-term current use of insulin COMPREHENSIVE METABOLIC PANEL (CMP) Routine 12/26/2024 1:11 PM EDT Type 2 diabetes mellitus with diabetic peripheral angiopathy without gangrene, with long-term current use of insulin CBC AND DIFFERENTIAL Routine 12/26/2024 1:11 PM EDT Type 2 diabetes mellitus with diabetic peripheral angiopathy without gangrene, with long-term current use of insulin LIPID PANEL Routine 12/26/2024 1:11 PM EDT Type 2 diabetes mellitus with diabetic peripheral angiopathy without gangrene, with long-term current use of insulin VITAMIN B12 Routine 12/26/2024 1:11 PM EDT Type 2 diabetes mellitus with diabetic peripheral angiopathy without gangrene, with long-term current use of insulin Anemia, unspecified type FERRITIN Routine 12/26/2024 1:11 PM EDT Anemia, unspecified type FOLATE Routine 12/26/2024 1:11 PM EDT Anemia, unspecified type IRON AND IRON BINDING CAPACITY Routine 12/26/2024 1:11 PM EDT Anemia, unspecified type TSH WITH REFLEX Routine 07/05/2024 10:43 AM EDT Hypothyroidism, unspecified type HM DIABETES EYE EXAM FOR RESULT ENTRY ONLY Routine 06/27/2024 2:40 PM EDT from Last 3 Months or Most Recently Relevant to Health Maintenance Results * Outside Imaging Report Only (01/25/2025 3:46 PM EDT) Historical Provider IMG XR CHEST Final Res ult * (ABNORMAL) Urinalysis w/reflex Urine Culture (12/26/2024 1:26 PM EDT) COLOR Yellow Yellow [facility] CLARITY Clear [facility] GLUCOSE 3+(A) Negative [facility] BILI Negative Negative [facility] KETONES Negative Negative [facility] SPECIFIC GRAVITY 1.015 1.005 - 1.030 [facility] BLOOD Trace(A) Negative [facility] PH 6.0 5.0 - 8.0 [facility] Protein-UA Negative Negative [facility] NITRITE Negative Negative [facility] Leukocyte esterase, ur Negative Negative [facility] Urine (Urine) 12/26/2024 1:2 6 PM EDT 12/26/2024 1:28 PM EDT Waylon Diaz MD LAB URINE ORDERABLES Final Re sult Performing Organization Address [facility] Co de Phone Number [address] [address] * (ABNORMAL) Microalbumin/creatinine ratio, random urine (12/26/2024 1:26 PM EDT) URINE MICROALBUMIN 1.8 0 - 2.3 mg/dL [facility] URINE CREATININE 34 mg/dL [facility] MICROALB/CRE RATIO 52.9(H) 0 - 20 mg/g Cre [facility] Urine (Urine) 12/26/2024 1:2 6 PM EDT 12/26/2024 1:28 PM EDT Waylon Diaz MD LAB URINE ORDERABLES Final Re sult Performing Organization Address City/[facility] Co de Phone Number [address] [address] * (ABNORMAL) Comprehensive metabolic panel (12/26/2024 1:11 PM EDT) SODIUM 135 133 - 146 mmol/L [facility] POTASSIUM 4.5 3.3 - 5.1 mmol/L [facility] CHLORIDE 98 96 - 108 mmol/L [facility] CO2 23 21 - 35 mmol/L [facility] BUN 17 6 - 19 mg/dL [facility] CREATININE 0.80 0.5 - 1.5 mg/dL [facility] GLUCOSE 412(H) 70 - 99 mg/dL [facility] ALBUMIN 4.4 3.9 - 4.8 g/dL [facility] TOTAL PROTEIN 7.3 6.5 - 8.0 g/dL [facility] CALCIUM 10.0 8.4 - 10.3 mg/dL [facility] ALKALINE PHOSPHATASE 102 39 - 117 U/L [facility] TOTAL BILIRUBIN 0.4 0.0 - 1.2 mg/dL [facility] AST 15 0 - 37 U/L [facility] ALT 11 0 - 40 U/L [facility] GLOBULIN 2.9 1 - 4.8 g/dL [facility] EGFR 87 >59 mL/min/1.7 3m2 [facility] Comment:Estimated glomerular filtration rate calculated using the CKD-EPI refit equation. ANION GAP 19 10 - 20 mmol/L [facility] Blood 12/26/2024 1:11 PM EDT 12/26/2024 1:17 PM EDT us Waylon Diaz MD LAB BLOOD BKR ORDERABLES Yessica l Result [address] [id number] * Iron and iron binding capacity (12/26/2024 1:11 PM EDT) IRON 76 45 - 160 ug/dL [facility] IRON BINDING CAPACITY 254 228 - 428 ug/dL [facility] TRANSFERRIN SATURAT. 30 20 - 55 % [facility] Blood 12/26/2024 1:11 PM EDT 12/26/2024 1:17 PM EDT us Waylon Diaz MD LAB BLOOD BKR ORDERABLES Yessica winter Result [facility] [address], [place] [id number] * (ABNORMAL) CBC and differential (12/26/2024 1:11 PM EDT) WBC 7.86 4.00 - 11.00 K/uL [facility] RBC 4.04(L) 4.50 - 5.90 M/uL [facility] HGB 12.3(L) 13.5 - 17.5 g/dL [facility] HCT 37.5(L) 41.0 - 53.0 % [facility] PLT 316 150 - 450 K/uL [facility] MCV 92.8 80.0 - 100.0 fL [facility] MCH 30.4 27.0 - 31.0 pg [facility] MCHC 32.8 32.0 - 36.0 g/dL [facility] RDW 13.2 11.5 - 14.5 % [facility] MPV 9.8 8.4 - 12.0 fL [facility] NRBC 0.00 0.00 /100 WBCs [facility] ABSOLUTE NRBC 0.00 0.00 K/uL [facility] DIFF METHOD Auto [facility] NEUTS 63.4 48.0 - 76.0 % [facility] LYMPHS 20.7 18.0 - 41.0 % [facility] MONOS 12.0(H) 4.0 - 11.0 % [facility] EOS 2.9 0.0 - 5.0 % [facility] BASOS 0.4 0.0 - 1.5 % [facility] Granulocytes, immature (%) 0.6 0.0 - 0.9 % [facility] ABSOLUTE NEUTS 4.98 1.92 - 7.60 K/uL [facility] ABSOLUTE LYMPHS 1.63 0.72 - 4.10 K/uL [facility] ABSOLUTE MONOS 0.94 0.16 - 1.10 K/uL [facility] ABSOLUTE EOS 0.23 0.00 - 0.50 K/uL [facility] ABSOLUTE BASOS 0.03 0.00 - 0.15 K/uL [facility] Granulocytes, immature 0.05 0.00 - 0.09 K/uL [facility] Blood 12/26/2024 1:11 PM EDT 12/26/2024 1:17 PM EDT us Waylon Diaz MD LAB BLOOD BKR ORDERABLES Yessica l Result [address] [address] * (ABNORMAL) Hemoglobin A1c (12/26/2024 1:11 PM EDT) HEMOGLOBIN A1C 10.5(H) 4.3 - 5.8 % [facility] Blood 12/26/2024 1:11 PM EDT 12/26/2024 1:17 PM EDT us Waylon Diaz MD LAB BLOOD BKR ORDERABLES Yessica l Result Performing Organization Address [facility]/ZIP Co de Phone Number [address] [address] * Folate (12/26/2024 1:11 PM EDT) FOLIC ACID 15.0 4.2 - 19.9 ng/mL [facility] Blood 12/26/2024 1:11 PM EDT 12/26/2024 1:17 PM EDT us Waylon Diaz MD LAB BLOOD BKR ORDERABLES Yessica l Result [address] [address] * Ferritin (12/26/2024 1:11 PM EDT) FERRITIN 169 30 - 400 ug/L [facility] Blood 12/26/2024 1:11 PM EDT 12/26/2024 1:17 PM EDT Waylon Diaz MD LAB BLOOD BKR ORDERABLES Yessica l Result [address] [address] * Vitamin B12 (12/26/2024 1:11 PM EDT) VITAMIN B12 568 232 - 1,245 pg/mL [facility] Blood 12/26/2024 1:11 PM EDT 12/26/2024 1:17 PM EDT Waylon Diaz MD LAB BLOOD BKR ORDERABLES Yessica l Result Performing Organization Address [facility] Co de Phone Number [address] [address] * (ABNORMAL) Lipid panel (12/26/2024 1:11 PM EDT) HDL 57 mg/dL [facility] Comment: Interpretation <40 mg/dL: Low HDL cholesterol (major risk factor for CHD) Greater than or equal to 60 mg/dL: High HDL cholesterol ( negative risk factor for CHD) HDL - cholesterol is affected by a number of factors, e.g. smoking, excerise, hormones, sex and age. CHOLESTEROL 133 0 - 240 mg/dL [facility] TRIGLYCERIDES 93 30 - 160 mg/dL [facility] LDL 57 50 - 129 mg/dL [facility] Comment: LDL levels in terms of risk for coronary heart disease: <100 mg/dL: Optimal 100-129 mg/dL: Near or above optimal 130-159 mg/dL: Borderline high 160-189 mg/dL: High >190 mg/dL: Very High CARDIAC RISK RATIO 2.3(L) 3.4 - 5.0 C [facility] Blood 12/26/2024 1:11 PM EDT 12/26/2024 1:17 PM EDT Waylon Diaz MD LAB BLOOD BKR ORDERABLES Yessica l Result Performing Organization Address City/State/[facility] Co de Phone Number [address] [address] * TSH with reflex (07/05/2024 10:43 AM EDT) TSH 1.73 0.27 - 4.20 uIU/mL [facility] Blood 07/05/2024 10:4 3 AM EDT 07/05/2024 10:47 AM EDT us Waylon Diaz MD LAB BLOOD BKR ORDERABLES Yessica l Result Performing Organization Address City/[facility]/ZIP Co de Phone Number [address] [address] * DIABETES EYE EXAM FOR RESULT ENTRY ONLY (06/27/2024 2:40 PM EDT) us Historical Provider HEALTH MAINTENANCE Final Result from Last 3 Months or Most Recently Relevant to Health [place] [address] MEDICARE PART A & B [employer] [place] [address] MEDICARE PART A & B [employer] [place] [address] MEDICARE PART A & B [employer] [place] [address] MEDICARE PART A & B [employer] [place] [address] MEDICARE PART A & B Member Subscriber Plan / Payer (Ef fective 2004-Present) Name:Vidal Patton Member ID:[id number] Relation to Subscriber:Self Name:Abdi Vidal Subscriber ID:[id number] Payer ID:[id number] Group ID:Not on file Type:Medicare Address: [employer] [address] [place] [phone] [employer]UE [employer]OSS MEDEX SUPPLEMENT MEDICARE PART A & B [employer] MEDEX SUPPLEMENT MEDICARE PART A & B [employer] [place] [address] [place] [address] MEDICARE PART A & B [employer] MEDEX SUPPLEMENT [facility] [place] [address] MEDICARE PART A & B [employer] MEDEX SUPPLEMENT Care Teams Mastic Floor Layer Relationship Specialty Start Date End Date Waylon Diaz MD [address] [place] [address] [email or web address] PCP - General Internal Medicine 03/15/17 Waylon Diaz MD [address] [place] [address] [email or web address] Insurance Assigned Provider 07/02/23 Kimani Sarabia MD [address] [place] [address] Ophthalmology 09/13/19 Ashley Ortez MD [address] [place] [address] Cardiology 08/08/20 Shelley Xavier DPM [address] [place] [address] Podiatry 08/08/20 Additional Source Comments The information contained in this document represents components of the legal health record. It is not the complete legal health record.[facility]
--- OUTSIDE RECORDS SUMMARY | 2025-02-20 07:33 | XMS_ITS | Patient Health Record ---
Author Organization [facility] Address [address] [facility] [place] [address] Care Team Providers Care Caisson Worker Name Role Phone Waylon Diaz MD Primary Care Provider Abiola Shellye Morton Unavailable [phone] Allergies No Known Allergies Results Component Value Reference Range Notes HEMOGLOBIN A1C (GLYCOHEMOGLO BIN) Reviewed date:12/31/2024 03:09:19 PM Interpretation: Performing Lab: Notes/Report: HEMOGLOBIN A1C % (HH) 10.5 Reason For Referral No Information Medications Medication SIG (Take, Route, Frequency, Duration) Notes Start Date End Date Status Night Splint AFO - L1930 1 wear at rest; Duration: 30 days Active Vitamin D Active Levothyroxine Sodium Active Lisinopril Active Lantus Active HumuLIN R Active Cilostazol Active Atorvastatin Calcium Active amLODIPine Besylate Active Eye Drops unsure name Not-Taki ng Lipitor Not-Taking Extra Depth Orthopedic Shoes (1 Pair) with Customized Heat Molded Multidensity Innersoles (3 Pair) as directed Dx: NIDDM/Polyneuropathy (E11.42), Hammertoe Foot Deformity (M20.41,M20.42), Preulcerative Skin Lesion(s) (L85.1 05/10/2024 Active Immunizations Vaccine Route Administration Date Status Comme nts Influenza Unknown 07/01/2015 Administered Influenza Unknown 01/06/2017 Administered Influenza Unknown 12/26/2017 Administered Influenza Unknown 12/26/2018 Administered Influenza Unknown 12/04/2019 Administered Influenza Unknown 11/26/2021 Administered Influenza Unknown 01/26/2023 Administered Influenza Unknown 01/18/2024 Administered COVID-19 Pfizer BioNTech Vaccine Unknown 05/27/2020 Administered 1st vaccine 12/16 Social History Tobacco Use: Social History Observation Description Date Details (start date - stop date) Never Smoker NA - NA Tobacco use other than smoking: Question Answer Notes Are you an other tobacco user? Yes C igars occasionally Tobacco Control (Standard) Question Answer Notes Tobacco use: Nonsmoker Additional Findings: Tobacco non-user Current no nsmoker AUDIT-C (Standard) Question Answer Notes Did you have a drink containing alcohol in the p ast year? No Points 0 Interpretation Negative Problems Problem Type SNOMED Code ICD Code Onset Dates Problem Status W/U Status Risk Notes Problem Acquired hammer toe of right foot (4417687556867602) Other hammer toe(s) (acquired), right foot (M20.41) Active confirmed Problem Acquired hammer toe of left foot (8189863021058863) Other hammer toe(s) (acquired), left foot (M20.42) Active confirmed Problem Plantar wart (46789972) Plantar wart (B07.0) Active confirmed Problem Polyneuropathy due to type 2 diabetes mellitus (881552215) Type 2 diabetes mellitus with diabetic polyneuropathy (E11.42) Active confirmed Problem Intermittent claudication (35555210) Intermittent claudication (I73.9) Active confirmed Problem Bilateral atherosclerosis of arteries of lower limbs (disorder) (26975492043867966 ) Atherosclerosis of lime artery of both lower extremities, with unspecified presence of clinical manifestation (I70.203) Active confirmed Q7(A), Q8(2B), Q9(1B,2 C) Vital Signs Blood pressure diastolic 80 mm Hg 12/31/2024 Height 6 ft 0 in in 12/31/2024 Blood pressure systolic 120 mm Hg 12/31/2024 Weight 170 lbs 12/31/2024 BMI 23.05 kg/m2 12/31/2024 Procedures Procedure Date Ordered Date Performed Result Body Sit e 57378-BCLWJEL NAIL, 6 OR MORE 05/10/2024 N/A 48262-Hdjp Destruction, 1-14 05/10/2024 N/A 15255-Mdxtwknu Plate 05/10/2024 N/A 15301-DVGC SKIN LESIONS, OVER 4 05/10/2024 N/A 41107-PSHZTTJ NAIL, 6 OR MORE 08/30/2024 N/A 05020-Qsry Destruction, 1-14 08/30/2024 N/A 03374-NQOW SKIN LESIONS, OVER 4 08/30/2024 N/A 31228-WKWULYL NAIL, 6 OR MORE 12/31/2024 N/A 82039-UDOB SKIN LESIONS, OVER 4 12/31/2024 N/A Encounters Encounter Location Date Provider Diagnosis [address] [address] 05/10/2024 Shelley Black Atherosclerosis of lime artery of both lower extremities, with unspecified presence of clinical manifestation I70.203 ; Other hammer toe(s) (acquired), right foot M20.41 ; Intermittent claudication I73.9 ; Tinea unguium B35.1 ; Type 2 diabetes mellitus with diabetic polyneuropathy E11.42 ; Plantar wart B07.0 ; Pain in right foot M79.671 ; Ingrown nail L60.0 and Other hammer toe(s) (acquired), left foot M20.[address] [address] 08/30/2024 Shelley Black Atherosclerosis of lime artery of both lower extremities, with unspecified presence of clinical manifestation I70.203 ; Other hammer toe(s) (acquired), right foot M20.41 ; Intermittent claudication I73.9 ; Tinea unguium B35.1 ; Type 2 diabetes mellitus with diabetic polyneuropathy E11.42 ; Plantar wart B07.0 ; Pain in right foot M79.671 and Other hammer toe(s) (acquired), left foot M20.[address] [address] 12/31/2024 Shelley Black Atherosclerosis of lime artery of both lower extremities, with unspecified presence of clinical manifestation I70.203 ; Type 2 diabetes mellitus with diabetic polyneuropathy E11.42 ; Tinea unguium B35.1 and Plantar wart B07.[address] [address] 12/17/2024 Shelley Black [address] [address] 12/31/2024 Shelley Xavier Assessments Encounter Date Diagnosis (ICD Code) Assessment Notes Treatment Notes Treatment Clinical Notes Section Notes 05/10/2024 Other hammer toe(s) (acquired), right foot (ICD-10 - M20.41) Patient Educated with: DIABETIC FOOT CARE INSTRUCTIONS. pdf (DIABETIC FOOT CARE INSTRUCTIONS. pdf) 05/10/2024 Atherosclerosis of lime artery of both lower extremities, with unspecified presence of clinical manifestation (ICD-10 - I70.203) Q7(A), Q8(2B), Q9(1B,2C) 08/30/2024 Other hammer toe(s) (acquired), right foot (ICD-10 - M20.41) 08/30/2024 Atherosclerosis of lime artery of both lower extremities, with unspecified presence of clinical manifestation (ICD-10 - I70.203) Q7(A), Q8(2B), Q9(1B,2C) 12/31/2024 Type 2 diabetes mellitus with diabetic polyneuropathy (ICD-10 - E11.42) 12/31/2024 Atherosclerosis of lime artery of both lower extremities, with unspecified presence of clinical manifestation (ICD-10 - I70.203) Q7(A), Q8(2B), Q9(1B,2C) 12/31/2024 Tinea unguium (ICD-10 - B35.1) 08/30/2024 Intermittent claudication (ICD-10 - I73.9) 05/10/2024 Intermittent claudication (ICD-10 - I73.9) 05/10/2024 Tinea unguium (ICD-10 - B35.1) 08/30/2024 Tinea unguium (ICD-10 - B35.1) 12/31/2024 Plantar wart (ICD-10 - B07.0) 08/30/2024 Type 2 diabetes mellitus with diabetic polyneuropathy (ICD-10 - E11.42) 05/10/2024 Type 2 diabetes mellitus with diabetic polyneuropathy (ICD-10 - E11.42) 05/10/2024 Plantar wart (ICD-10 - B07.0) 08/30/2024 Plantar wart (ICD-10 - B07.0) 08/30/2024 Pain in right foot (ICD-10 - M79.671) 05/10/2024 Pain in right foot (ICD-10 - M79.671) 05/10/2024 Ingrown nail (ICD-10 - L60.0) 08/30/2024 Other hammer toe(s) (acquired), left foot (ICD-10 - M20.42) 05/10/2024 Other hammer toe(s) (acquired), left foot (ICD-10 - M20.42) Plan Of Treatment Pending Test Test Name Order Date Hemoglobin A1c 07/20/2018 75782-GDMYCTK NAIL, 6 OR MORE 12/03/2010 61444-USUKGKX NAIL, 6 OR MORE 03/08/2011 51815-GGZVELA NAIL, 6 OR MORE 06/09/2011 33763-QHPTRAJ NAIL, 6 OR MORE 09/09/2011 67365-NGHQFFL NAIL, 6 OR MORE 12/13/2011 83157-BSVQMYG NAIL, 6 OR MORE 03/13/2012 86899-EVCABLR NAIL, 6 OR MORE 06/12/2012 90054-LIKZTGF NAIL, 6 OR MORE 12/18/2012 06414-DRFHRYP NAIL, 6 OR MORE 04/02/2013 45025-WIWBAHX NAIL, 6 OR MORE 09/13/2012 62196-WDCOFQQ NAIL, 6 OR MORE 06/25/2013 80878-QWPJYRV NAIL, 6 OR MORE 10/01/2013 59953-QWIOQUU NAIL, 6 OR MORE 12/31/2013 29628-UISSZOI NAIL, 6 OR MORE 04/10/2014 21725-ODMNHZS NAIL, 6 OR MORE 07/08/2014 41727-TSJBZCQ NAIL, 6 OR MORE 04/22/2022 87549-YZLDYFU NAIL, 6 OR MORE 07/29/2022 23930-DJVTSTR NAIL, 6 OR MORE 01/06/2023 31170-RISUOGY NAIL, 6 OR MORE 04/21/2023 94092-OBQQJVZ NAIL, 6 OR MORE 07/25/2023 38788-AHFCYPD NAIL, 6 OR MORE 10/20/2023 64097-ERQEBRJ NAIL, 6 OR MORE 02/06/2024 99425-LUMHNRO NAIL, 6 OR MORE 05/10/2024 46519-JCCGXMC NAIL, 6 OR MORE 08/30/2024 10149-VSYXYTW NAIL, 6 OR MORE 12/31/2024 90660-UZBAONM NAIL, -12/28/2021 26759-MNZLMRE NAIL, 04-0106/22/2021 47710-XXNGXTP NAIL, 04-0109/21/2021 79952-YTHKWOV NAIL, 04-0104/20/2018 62827-QXDKXPL NAIL, 04-0107/20/2018 89392-ELKWFST NAIL, 04-0111/02/2018 43270-EQBXYGX NAIL, 04-0102/08/2019 30295-PCTHQZC NAIL, 04-0105/17/2019 44921-RIVTDYD NAIL, 04-0112/24/2019 55936-BRMPBPP NAIL, 04-0109/13/2019 77518-IITBELE NAIL, 04-0103/31/2020 02552-VWETZCX NAIL, 04-0107/16/2020 35891-YZKCTCH NAIL, 04-0110/16/2020 92415-LDIUZSJ NAIL, 04-0102/16/2021 25391-YAMFNMY NAIL, 04-0110/14/2014 60565-SNVRDWQ NAIL, 04-0104/17/2015 79880-SDBYXYG NAIL, 04-0107/17/2015 07998-UBOQUML NAIL, 04-0101/15/2015 20137-LMRTMYW NAIL, 04-0110/20/2015 30932-CHPDJAF NAIL, 04-0101/22/2016 58926-XDOLEWM NAIL, 04-0104/22/2016 40322-XOWYLVO NAIL, 04-0107/19/2016 45974-QKKCCWP NAIL, 04-0110/15/2016 27221-ESHXOUW NAIL, 04-0101/10/2017 82682-TZVAJFU NAIL, 04-0104/18/2017 13484-OJPRFLR NAIL, 04-0107/18/2017 05813-CMYYIKE NAIL, 04-0110/17/2017 57753-MLPAZBR NAIL, 04-0101/16/2018 28143-Ojxz Destruction, 04-1012/24/2019 77307-Hxjg Destruction, 04-1007/29/2022 62357-Ggcq Destruction, 04-1001/06/2023 04959-Muas Destruction, 04-1008/30/2024 31647-Efud Destruction, 1-14 02/06/2024 30933-Yche Destruction, 1-14 05/10/2024 50681-Uwiy Destruction, 1-14 07/25/2023 79400-Uvwi Destruction, 1-14 10/20/2023 90416-Eascugmg Plate 05/10/2024 60189-Yfzggacx Plate 02/16/2021 57622-Kwrkfvtx Plate 02/08/2019 67632-Vvqdpebl Plate 04/20/2018 53893-Dmsphpgw Plate 07/18/2017 31509-Gwwpenqu Plate 06/25/2013 61961-Doyqqrpk Plate 01/15/2015 55926-Ckqcqeex Plate 10/14/2014 16306-Zmzzyiao Plate 07/08/2014 86916-Hstacepq Plate 04/10/2014 97301-Jnebjhqy Plate 12/31/2013 86093-Ntzbjfrb Plate 10/01/2013 54653-Akzxztdi Plate 09/13/2012 82894-Vljrifre Plate 12/18/2012 67772-Ixocfoaq Plate 04/02/2013 79902-Sscnrtao Plate 06/12/2012 37548-Uiesofvt Plate 03/13/2012 40829-Odtkbnqk Plate 12/13/2011 24295-Lqwcgzyp Plate 09/09/2011 97411- Debride <25 sq cm 01/22/2016 63895 I&D ABSCESS- SIMPLE,SINGLE 024 41518-WYOT SKIN LESIONS, OVER 4 01/07/20 23 14819-NPGH SKIN LESIONS, OVER 4 07/25/19 24 11512-ORSS SKIN LESIONS, OVER 4 04/21/19 24 89341-RYBO SKIN LESIONS, OVER 4 04/22/19 23 71105-JVNN SKIN LESIONS, OVER 4 07/30/19 70925-ATWO SKIN LESIONS, OVER 4 05/10/19 51444-RFWF SKIN LESIONS, OVER 4 02/06/20 24 75399-EICR SKIN LESIONS, OVER 4 10/20/19 24 92904-TGHT SKIN LESIONS, OVER 4 08/31/19 55721-QCAQ SKIN LESIONS, OVER 4 01/01/20 10514-NSQZ SKIN LESIONS, 2 TO 4 12/29/19 01659-XEXU SKIN LESIONS, 2 TO 4 09/22/19 54981-BIJE SKIN LESIONS, 2 TO 4 07/21/19 19 76071-DJCW SKIN LESIONS, 2 TO 4 11/03/19 19 99974-AUFT SKIN LESIONS, 2 TO 4 02/09/20 19 29108-PNEP SKIN LESIONS, 2 TO 4 09/13/19 20 43037-JLOV SKIN LESIONS, 2 TO 4 05/17/19 51045-RSVD SKIN LESIONS, 2 TO 4 06/23/19 22 00168-GOHT SKIN LESIONS, 2 TO 4 02/17/20 65465-GBVI SKIN LESIONS, 2 TO 4 10/17/19 96072-XXLF SKIN LESIONS, 2 TO 4 03/31/19 49702-JPCX SKIN LESIONS, 2 TO 4 07/17/19 21 91023-HHLW SKIN LESIONS, 2 TO 4 12/24/19 20 64125-XQMF SKIN LESIONS, 2 TO 4 01/22/20 16 73584-UZZE SKIN LESIONS, 2 TO 4 07/20/19 17 11609-KCSA SKIN LESIONS, 2 TO 4 04/22/19 17 77821-LCBT SKIN LESIONS, 2 TO 4 10/20/19 16 20139-DFEX SKIN LESIONS, 2 TO 4 04/17/19 16 37064-QXST SKIN LESIONS, 2 TO 4 07/17/19 16 30645-ZGBM SKIN LESIONS, 2 TO 4 10/18/19 18 59265-DITU SKIN LESIONS, 2 TO 4 04/20/19 19 37307-TPNI SKIN LESIONS, 2 TO 4 01/17/20 18 61096-LDSQ SKIN LESIONS, 2 TO 4 07/19/19 18 15572-IJAK SKIN LESIONS, 2 TO 4 04/18/19 18 01220-TPZK SKIN LESIONS, 2 TO 4 01/11/20 17 24063-KBSP SKIN LESIONS, 2 TO 4 10/16/19 17 26742-BOZF SKIN LESIONS, 2 TO 4 12/13/19 12 34813-NPCJ SKIN LESIONS, 2 TO 4 09/09/19 12 32230-WFDO SKIN LESIONS, 2 TO 4 03/13/20 12 21792-MTCV SKIN LESIONS, 2 TO 4 04/02/19 14 62440-WDJV SKIN LESIONS, 2 TO 4 06/26/19 14 81758-LQNN SKIN LESIONS, 2 TO 4 10/02/19 14 93460-JITC SKIN LESIONS, 2 TO 4 01/01/20 14 53331-OSAG SKIN LESIONS, 2 TO 4 04/10/19 15 38890-FQGQ SKIN LESIONS, 2 TO 4 07/09/19 15 03267-YCMQ SKIN LESIONS, 2 TO 4 10/15/19 15 48706-MLSM SKIN LESIONS, 2 TO 4 01/16/20 15 X1905-BJYSEJWM DYSTROPHIC NAILS ANY # V2979-HOCVUILJ DYSTROPHIC NAILS ANY # B5928-AIYWBJYD DYSTROPHIC NAILS ANY # O5231-VAYFWPZX DYSTROPHIC NAILS ANY # B8423-HHQPQOCY DYSTROPHIC NAILS ANY # R4071-QEQYLCHA DYSTROPHIC NAILS ANY # Y3106-LQEJLVKW DYSTROPHIC NAILS ANY # H4941-GEJXDMAT DYSTROPHIC NAILS ANY # H3893-FGSBYMIJ DYSTROPHIC NAILS ANY # K6262-AYXQNZPE DYSTROPHIC NAILS ANY # J3615-KPTTFBIM DYSTROPHIC NAILS ANY # Z0001-HZNFVWQX DYSTROPHIC NAILS ANY # K3142-KZRUTRYK DYSTROPHIC NAILS ANY # W3718-NGNPBRBC DYSTROPHIC NAILS ANY # P6577-TEAGBHKU DYSTROPHIC NAILS ANY # E4662-CRMREKDA DYSTROPHIC NAILS ANY # Z8343-RMMZXHLX DYSTROPHIC NAILS ANY # L5540-MMKDLMMS DYSTROPHIC NAILS ANY # D5873-YHHSDESB DYSTROPHIC NAILS ANY # W4419-RGDDLGNF DYSTROPHIC NAILS ANY # Q6864-RWLKEJTC DYSTROPHIC NAILS ANY # B7172-SIJGVJDH DYSTROPHIC NAILS ANY # P7862-SILLEEKR DYSTROPHIC NAILS ANY # E0004-DLDFWAAE DYSTROPHIC NAILS ANY # T9760-PGUJEQUN DYSTROPHIC NAILS ANY # 99539,H2356-LLE TENDON SHEATH/LIGAMENT 0 05/19/202386280,I9390-EPO TENDON SHEATH/LIGAMENT 0 08/24/2018 Next Appt Details Provider Name:Shelley Xavier , 04/22/2025 10:30:00 AM, [address] [place] [address], [place], [address], Insurance Providers Payer Name Payer Address Payer Phone Subscriber Number Group Number Insured Name Patient Relationship to Insured Coverage Start Date Coverage End Date Medicare National Govt Sv[employer] [address] [place] [address] [id number] Elan Patton Self - patient is the insured [employer] [address] [place] [address] [phone] [id number] Elan Patton Self - patient is the insured 2 Medical (General) History Medical History History ICD Code mumps diabetic type ll chicken pox Retinopathy Surgical History Surgery Date(Month/Year) leg surgery Catarac SX Both Eyes 11/2016 LT Ear [facility] 06/2017 Leg surgery- (Right) Stent Placement @ B 08/2017 Right eye 12/2018
[2025-02-20 07:40] LABS: Appearance Urine Clear; Glucose Urine UA >=1000 mg/dL (Negative); PH 5.5 (5.0-9.0); Specific Gravity - Urine >= 1.030 (1.005-1.025); UMIC TRIGGER UA YES
== END 2025-02-19 07:27 | disposition home or self-care (01) ==
LOC: HO.LNP 07:26
PROVIDERS: Visit Provider Internal Medicine
DX: N39.46 Mixed incontinence (principal); R35.0 Frequency of micturition
CPT/HCPCS: 81001; 87086

== ENCOUNTER 2025-03-12 16:41 | Outpatient (REF) | payer MEDICARE, SELFPAY ==
--- OUTSIDE RECORDS SUMMARY | 2023-11-03 09:45 | XMS_ITS ---
Author Organization [facility] Address [address] [place] [address] Care Team Providers Care Medical Office Manager Name Role Phone Joe BAUM, Waylon Primary Care Provider Shelley Julian [phone] Hoffman Encounters Encounter Location Date Provider Diagnosis [facility] [address] [place] [address] 11/03/2023 Shelley Xavier Plan Of Treatment Next Appt Details Provider Name:Shelleyred Xavier , 04/22/2025 10:30:00 AM, [address] [place], [address], Progress Notes * Elan PATTONDOB:1940 (84 yo M)Acc No.[id number]:11/03/2023 Progress Note Patient: Elan ENCARNACION Provider: Candy Xavier DPM :1940 A ge:83 Y S ex:Male Date:11/03/2023 Address:[address] [place] [id number] Pcp:Waylon Diaz MD Subjective: * Chief Complaints: * [address] Hoffman[address] * Medical History: Objective: * Vitals: Assessment: Plan: * Treatment: * Images: * The named appointment provid er may or may not be the originator of this progress note, and it is not deemed complete until electronically signed by the appointment provider. Sign off status: Pending * Provider: Candy Xavier DPM Date: 0 11/03/2023 Generated for Tucker sue/Erin/Halina on: 1 2024 08:16 PM EST
--- OUTSIDE RECORDS SUMMARY | 2023-11-14 10:00 | XMS_ITS ---
Author Organization [facility] Address [address] [place] [address] Care Team Providers Care Shoe Stitcher Odd Name Role Phone Joe BAUM, Waylon Primary Care Provider Shelley Julian [phone] Encounters Encounter Location Date Provider Diagnosis [address] [address] 11/14/2023 Shelley Xavier Plan Of Treatment Next Appt Details Provider Name:Shelley A Duc , 04/22/2025 10:30:00 AM, [address] [place] [address], [phone], Progress Notes * ABDI ElanDOB:1940 (84 yo M)Acc No.[id number]:11/14/2023 Progress Note Patient: Elan ENCARNACION Provider: Candy Xavier DPM :1940 A ge:83 Y S ex:Male Date:11/14/2023 Address:[address] [place] [address] hanhWisner, [phone] Pcp:Waylon Diaz MD Subjective: * Chief Complaints: * * Medical History: Objective: * Vitals: Assessment: Plan: * Treatment: * Images: * The named appointment provid er may or may not be the originator of this progress note, and it is not deemed complete until electronically signed by the appointment provider. Sign off status: Pending * Provider: Candy Xavier DPM Date: 0 11/14/2023 Generated for Tucker sue/Erin/Halina on: 1 2024 08:15 PM EST
--- OUTSIDE RECORDS SUMMARY | 2024-01-26 09:30 | XMS_ITS ---
Author Organization [facility] Address [address] [place] [address] Care Team Providers Care Paving Machine Operator Name Role Phone Joe BAUM, Waylon Primary Care Provider Shelley Julian [phone] Encounters Encounter Location Date Provider Diagnosis [address] [address] 01/26/2024 Shelley Xavier Plan Of Treatment Next Appt Details Provider Name:Shelley A Duc , 04/22/2025 10:30:00 AM, [address] [place] [address], [phone], Progress Notes * ABDI ElanDOB:1940 (84 yo M)Acc No.[id number]:01/26/2024 Progress Note Patient: Elan ENCARNACION Provider: Candy Xavier DPM :1940 A ge:83 Y S ex:Male Date:01/26/2024 Address:[address] [place] [phone] Pcp:Waylon Diaz MD Subjective: * Chief Complaints: * * Medical History: Objective: * Vitals: Assessment: Plan: * Treatment: * Images: * The named appointment provid er may or may not be the originator of this progress note, and it is not deemed complete until electronically signed by the appointment provider. Sign off status: Pending * Provider: Candy Xavier DPM Date: Generated for Tucker sue/Erin/Halina on: 1 2024 08:15 PM EST
--- OUTSIDE RECORDS SUMMARY | 2024-04-30 09:35 | XMS_ITS ---
Author Organization [facility] Address [address] [place] [address] Care Team Providers Care Gas Engine Operator Compressors Name Role Phone Joe BAUM, Waylon Primary Care Provider Blair Nielson Jr Encounters Encounter Location Date Provider Diagnosis [facility] [address] [place] [address] 04/30/2024 Blair Espinoza Jr Plan Of Treatment Next Appt Details Provider Name:Blair rodriguez Jr, 04/01/2025 10:40:00 AM, [address], [address], [place], [address], Progress Notes * VIDAL PEREZDOB: 0 (84 yo M)Acc No.[id number]:04/30/2024 Progress Notes Patient: VIDAL ENCARNACION Sharron Provider: Veda Espinoza MD :1940 A ge:83 Y S ex:Male Date:04/30/2024 Address:[address] [place] [address] [id number] Pcp:Waylon Diaz MD Billing Information: * Procedure Codes: * The named appointment provid er may or may not be the originator of this progress note, and it is not deemed complete until electronically signed by the appointment provider. Sign off status: Pending * Provider: Veda Espinoza MD Date: 0 04/30/2024 Generated for Printi ng/Familena/eTransmitting on: 1 2024 08:15 PM EST
--- OUTSIDE RECORDS SUMMARY | 2024-12-17 05:00 | XMS_ITS ---
Author Organization [facility] Address [address] [place] [address] Care Team Providers Care Production Hand Name Role Phone Waylon Diaz MD Primary Care Provider Unavaila anson Shelley Xavier Unavailable [phone] Medications Medication SIG (Take, Route, Frequency, Duration) Notes Start Date End Date Status Cilostazol Active Lisinopril Active Levothyroxine Sodium Active HumuLIN R Active Lantus Active amLODIPine Besylate Active Atorvastatin Calcium Active Eye Drops unsure name Not-Taki ng Extra Depth Orthopedic Shoes (1 Pair) with Customized Heat Molded Multidensity Innersoles (3 Pair) as directed Dx: NIDDM/Polyneuropathy (E11.42), Hammertoe Foot Deformity (M20.41,M20.42), Preulcerative Skin Lesion(s) (L85.1 10/17/2017 Not-Taking Lipitor Not-Taking Night Splint AFO - L1930 1 wear at rest; Duration: 30 days Active Extra Depth Orthopedic Shoes (1 Pair) with Customized Heat Molded Multidensity Innersoles (3 Pair) as directed Dx: NIDDM/Polyneuropathy (E11.42), Hammertoe Foot Deformity (M20.41,M20.42), Preulcerative Skin Lesion(s) (L85.1 05/10/2024 Active Extra Depth Orthopedic Shoes (1 Pair) with Customized Heat Molded Multidensity Innersoles (3 Pair) as directed Dx: NIDDM/Polyneuropathy (E11.42), Hammertoe Foot Deformity (M20.41,M20.42), Preulcerative Skin Lesion(s) (L85.1 11/02/2018 Not-Taking Extra-Depth Diabetic Shoes with 3 Pair Custom heat-molded multi-density innersoles Not-Taking zzzExtra Depth Orthopedic Shoes (1 Pair) with Customized Heat Molded Multidensity Innersoles (3 Pair) . . . Dx: IDDM/Polyneuropathy (E10.42), Hammertoe Foot Deformity (M20.41,M20.42), Preulcerative Skin Lesion(s) (L85.1); Duration: . 07/17/2015 Not-Taking Vitamin D Active Extra Depth Orthopedic Shoes (1 Pair) with Customized Heat Molded Multidensity Innersoles (3 Pair) as directed Dx: NIDDM/Polyneuropathy (E11.42), Hammertoe Foot Deformity (M20.41,M20.42), Preulcerative Skin Lesion(s) (L85.1 01/06/2023 Active Encounters Encounter Location Date Provider Diagnosis [facility] [address] [address] 12/17/2024 Shelley Xavier Plan Of Treatment Next Appt Details Provider Name:Shelley Xavier , 04/22/2025 10:30:00 AM, [address] [place] [address], [phone], Progress Notes * Elan PATTONDOB:1940 (84 yo M)Acc No.[id number]:12/17/2024 Progress Note Patient: Elan ENCARNACION Provider: Candy Xavier DPM :1940 A ge:84 Y S ex:Male Date:12/17/2024 Address:[address] [place], [place] [address] Pcp:Waylon Diaz MD Subjective: * Chief Complaints: * * Medical History: * Medications: T aking amLODIPine Besylate , Taking Atorvastatin Calcium , Taking Cilostazol , Taking HumuLIN R , Taking Lantus , Taking Lisinopril , Taking Levothyroxine Sodium , Taking Vitamin D , Taking Extra Depth Orthopedic Shoes (1 Pair) with Customized Heat Molded Multidensity Innersoles (3 Pair) as directed Dx: NIDDM/Polyneuropathy (E11.42), Hammertoe Foot Deformity (M20.41,M20.42), Preulcerative Skin Lesion(s) (L85.1 , Taking Night Splint AFO - L1930 1 wear at rest , Taking Extra Depth Orthopedic Shoes (1 Pair) with Customized Heat Molded Multidensity Innersoles (3 Pair) as directed Dx: NIDDM/Polyneuropathy (E11.42), Hammertoe Foot Deformity (M20.41,M20.42), Preulcerative Skin Lesion(s) (L85.1 , Not-Taking/PRN Extra Depth Orthopedic Shoes (1 Pair) with Customized Heat Molded Multidensity Innersoles (3 Pair) as directed Dx: NIDDM/Polyneuropathy (E11.42), Hammertoe Foot Deformity (M20.41,M20.42), Preulcerative Skin Lesion(s) (L85.1 , Not-Taking/PRN Extra-Depth Diabetic Shoes with 3 Pair Custom heat-molded multi-density innersoles , Not-Taking/PRN zzzExtra Depth Orthopedic Shoes (1 Pair) with Customized Heat Molded Multidensity Innersoles (3 Pair) . . . . Dx: IDDM/Polyneuropathy (E10.42), Hammertoe Foot Deformity (M20.41,M20.42), Preulcerative Skin Lesion(s) (L85.1) , Not-Taking/PRN Extra Depth Orthopedic Shoes (1 Pair) with Customized Heat Molded Multidensity Innersoles (3 Pair) as directed Dx: NIDDM/Polyneuropathy (E11.42), Hammertoe Foot Deformity (M20.41,M20.42), Preulcerative Skin Lesion(s) (L85.1 , Not-Taking/PRN Lipitor , Not-Taking/PRN Eye Drops , Notes to Pharmacist: unsure name Objective: * Vitals: Assessment: Plan: * Treatment: * Images: * The named appointment provid er may or may not be the originator of this progress note, and it is not deemed complete until electronically signed by the appointment provider. Sign off status: Pending * Provider: Candy Xavier DPM Date: 0 12/17/2024 Generated for Tucker sue/Erin/Halina on: 1 2024 08:15 PM EST
--- NOTE | ~2025-03-12 | MR_ITS ---
CLINICAL HISTORY: ATAXIA INCONTINENCE MR BRAIN WITHOUT GADOLINIUM Comparison: CT/SR - CT HEAD/BRAIN WO IV CON - 07/15/24 14:56 EDT MR/MT/SR - MR HEAD/BRAIN WO CON - 07/10/24 14:36 EDT Findings: Small focus of restricted diffusion in the left coronal radiata. 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 No intra-axial mass or hemorrhage. Age appropriate generalized parenchymal atrophy. Multiple foci of T2 FLAIR signal alteration in the periventricular and subcortical white matter, without significant change. No midline shift. No hydrocephalus. Vascular flow voids are intact. Visualized orbits: No acute abnormalities. Nonspecific right maxillary sinus disease. Signal alteration in the left mastoid air cells suggest partial opacification. No focal bone lesion. IMPRESSION: 1. 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 2. Moderate burden of periventricular and subcortical white matter signal alteration. This is a nonspecific finding that can be seen in the setting of age advanced microangiopathy, remote trauma, prior infectious/inflammatory process (such as demyelination) or can be seen with increased frequency in patients with a history of migraine headaches. This document has been electronically signed by: Anita Winchester DO on 03/12/2025 18:08:53
--- OUTSIDE RECORDS SUMMARY | 2025-03-12 20:15 | XMS_ITS | Encounter Summary ---
Author Organization [facility] Address [address] [place] [address] Phone Care Team Providers Care Prop And Effects Designer Name Role Phone Waylon Diaz MD Unavailable [phone] Waylon Diaz MD Primary Care Provider [phone] Kimani Sarabia MD Unavailable Ashley Ortez MD Unavailable Shelley Xavier DPConsuelo Unavailable [phone] Reason for Visit * Reason Onset Date Comments Appointment 01/31/2025 Encounter Details Date Type Department Care Team ([facility] Contact Info) Description 01/31/2025 Telephone [facility] [address] [place] [address] [email or web address] Appointment Social History Tobacco Use Types Packs/Day [...] Pt called back in. R/s to 04/22. [facility] Central Support Poultry Pathologist (Please do not reply to this user; this inbox is not monitored.) Thank you. * Eli Guzman - 01/31/2025 4:06 PM EST Patient called in stating he was called regarding an appointment and is returning the call. Please contact and advise. Central Support Poultry Pathologist (Please do not reply to this user; this inbox is not monitored.) Thank you. documented in this encounter Plan of Treatment Upcoming Encounters Date Type Department Care Team (Late st Contact Info) Description 04/22/2025 11:00 AM EST Office Visit [facility] [address] [place] [address] Waylon Diaz MD [address] [place] [address] [email or web address] documented as of this encounter Visit Diagnoses Not on filedocumented in this encounter Additional Health Concerns Assessment Noted Time PHQ-2 Depression Total Score: 0 07/06/19 25 9:03 AM EDT documented as of this encounter Care Teams Prop And Effects Designer Relationship Specialty Start Date End Date Waylon Diaz MD [address] [place] [address] [email or web address] PCP - General Internal Medicine 03/15/17 Waylon Diaz MD [address] [place] [address] [email or web address] Insurance Assigned Provider 07/02/23 Kimani Sarabia MD [address] [place] [address] Ophthalmology 09/13/19 Ashley Ortez MD [address] [place] [address] [email or web address] Cardiology 08/08/20 Shelley Xavier DPM [address] [place] [address] Podiatry 08/08/20 documented as of this encounter Additional Source Comments The information contained in this document represents components of the legal health record. It is not the complete legal health record.[facility]
--- OUTSIDE RECORDS SUMMARY | 2025-03-12 20:16 | XMS_ITS | Encounter Summary ---
Author Organization [facility] Address [address] [place] [address] Phone Care Team Providers Care Incident Commander Name Role Phone Waylon Diaz MD Unavailable [phone] Waylon Diaz MD Primary Care Provider [phone] Kimani Sarabia MD Unavailable Ashley Ortez MD Unavailable [phone] Shelley Xavier DPM Unavailable [phone] Reason for Visit * Reason Onset Date Comments Small acute infarct on MRI 03/12/2025 After Hours Call Encounter Details Date Type Department Care Team (Late st Contact Info) Description 03/12/[address] [facility] Primary Care Manual Arts Therapy Teacher Program [address] [address] Marilin Castillo, RF TEST TECHNICIAN, MSN 2 [facility] [address] [place] [address] [email or web address] Small acute infarct on MRI (After Hours Call/) Social History Tobacco Use Types Packs/Day Years [...] as of this encounter Progress Notes * Marilin Castillo, RF TEST TECHNICIAN, MSN - 03/12/2025 6:31 PM EST After Hours Call Note 03/12/2025 6:31 PM Caller: [facility] [phone] Chief complaint: HAD BRAIN MRI. FOUND SMALL ACUTE INFARCT COMPARTED TO CT ON 07/15, MRI 07/10. AND DIRECTION SHOULD GO ER OR WHAT. BARAJAS AT PHONE. HPI: Pt will go to [facility]. Plan: Support offered. Informed pt of MRI result: small acute infarct, and recommend ED evaluation.Outgoing ED Expect phone call completed. Medications prescribed: None. Disposition: Emergency Room (ER) After Hours Call Note 03/12/2025 7:30 PM Caller: MADDIE PATTON [phone] Chief complaint: IS ON WAY TO HOSPITAL AND RECEIVED CALL TO CALL THE O/C NDR. PLEASE CALL. HPI: Pt's son is driving his parents. Queries if they can go to [facility] instead of [facility]. Plan: [facility] ED Expect phone call completed. Medications prescribed: None. Disposition: Emergency Room (ER) documented in this encounter Plan of Treatment Upcoming Encounters Date Type Department Care Team (Late st Contact Info) Description 04/22/2025 11:00 AM EST Office Visit [facility] [address] [place] [address] Waylon Diaz MD [address] [place] [address] [email or web address] documented as of this encounter Visit Diagnoses Not on filedocumented in this encounter Additional Health Concerns Assessment Noted Time PHQ-2 Depression Total Score: 0 07/06/19 25 9:03 AM EDT documented as of this encounter Care Teams Incident Commander Relationship Specialty Start Date End Date Waylon Diaz MD [address] [place] [address] [email or web address] PCP - General Internal Medicine 03/15/17 Waylon Diaz MD [address] [place] [address] [email or web address] Insurance Assigned Provider 07/02/23 Kimani Sarabia MD [address] [place] [address] Ophthalmology 09/13/19 Ashley Ortez MD [address] [place] [address] [email or web address] Cardiology 08/08/20 Shelley Xavier DPM [address] [place] [address] Podiatry 08/08/20 documented as of this encounter Additional Source Comments The information contained in this document represents components of the legal health record. It is not the complete legal health record.[facility]
--- OUTSIDE RECORDS SUMMARY | 2025-03-12 20:16 | XMS_ITS | Encounter Summary ---
Author Organization [facility] Address [address] [facility] [address] [place] [address] Phone Care Team Providers Care Director Media Name Role Phone Waylon Diza MD Unavailable [phone] Waylon Diaz MD Primary Care Provider [phone] Kimani Sarabia MD Unavailable Ashley Ortez MD Unavailable [phone] Shelley Xavier DPM Unavailable [phone] Encounter Details Date Type Department Care Team (Late st Contact Info) Description 05/01/2024 Procedure Pass [facility], Ct Scan - [address] [address] Social History Tobacco Use Types Packs/Day Years [...] Description 04/22/2025 11:00 AM EST Office Visit [facility] [address] [place] [address] Waylon Diaz MD 40 [place] [address] [email or web address] documented as of this encounter Visit Diagnoses Not on filedocumented in this encounter Additional Health Concerns Assessment Noted Time PHQ-2 Depression Total Score: 0 01/03/20 24 9:27 AM EDT documented as of this encounter Care Teams Director Media Relationship Specialty Start Date End Date Waylon Diaz MD [address] [place] [address] [email or web address] PCP - General Internal Medicine 03/15/17 Waylon Diaz MD [address] [place] [address] Insurance Assigned Provider 07/02/23 Kimani Sarabia MD [address] [place] [address] Ophthalmology 09/13/19 Ashley Ortez MD [address] [place] [address] Cardiology 08/08/20 [place] [address] Podiatry 08/08/20 documented as of this encounter Additional Source Comments The information contained in this document represents components of the legal health record. It is not the complete legal health record.[facility]
--- OUTSIDE RECORDS SUMMARY | 2025-03-12 20:16 | XMS_ITS | Clinical Summary ---
Author Organization [facility] Address [address] [facility] [address] [place] [address] Phone Care Team Providers Care Layer Off Name Role Phone Waylon Diaz MD Unavailable [phone] Waylon Diaz MD Primary Care Provider [phone] Kimani Sarabia MD Unavailable [phone] Ashley Ortez MD Unavailable [phone] Shelley Xavier DPM Unavailable Allergies Active Allergy Reactions Criticality Noted Date Comments Insulin Glargine Other (See Comments) 8 ineffective Medications insulin pen needles, disposable, 32 gauge x 1/4 NdleIndications:Di abetes mellitus 1 each by Miscellaneous route as needed. 100 each 6 06/14/19 18 Active BD ULTRA-FINE JUNAID PEN NEEDLES 32 gauge x 5/32 Ndle 1 EACH BY MISCELLANEOUS ROUTE NEEDED. 6 06/14/19 18 Active insulin syringe-needle U-100 (BD INSULIN SYRINGE MICRO-FINE) 1 mL 28 gauge x 1/2 SyrgIndications:Ty pe 2 diabetes mellitus with diabetic peripheral angiopathy without gangrene, with long-term current use of insulin Use up to 4 a day for insulin 360 each 3 03/08/20 18 Active FREESTYLE SANDRA 2 READER MiscIndications:Ty pe 2 diabetes mellitus with diabetic peripheral angiopathy without gangrene, with long-term current use of insulin USE 4 (FOUR) TIMES A DAY BEFORE MEALS AND NIGHTLY. 1 each 10/10/19 22 Active Additional Information Patient not taking.Reported on 02/08/2025 FREESTYLE SANDRA 14 DAY SENSOR kitIndications:Abbey betes mellitus 1 each by Miscellaneous route every 14 (fourteen) days. 1 kit 5 03/11/20 Active Additional Information Patient not taking.Reported on 02/08/2025 metoprolol tartrate (LOPRESSOR) 25 MG tablet Take 25 mg by mouth daily. Active aspirin 81 mg Cap Take 1 capsule by mouth daily. 05/09/19 Active metFORMIN (GLUCOPHAGE) 500 MG tablet Take 2 tablets (1,000 mg total) by mouth nightly at bedtime. 180 tablet 3 05/09/19 25 Active levothyroxine (SYNTHROID, LEVOTHROID) 137 MCG tabletIndications: Hypothyroid TAKE 1 TABLET BY MOUTH EVERY MORNING. 90 tablet 3 05/16/19 25 Active ADMELOG U-100 INSULIN LISPRO 100 unit/mL injection vialIndications:Ty pe 2 diabetes mellitus with diabetic peripheral angiopathy without gangrene, with long-term current use of insulin Inject under the skin before each meal 3 times daily per sliding scale: 100-200 - 4 units 201-250 - 6 units 251-300- 8 units 301-350 - 10 units 350 or higher - 12 units 80 mL 3 05/30/19 Active Additional Information Patient taking differently: Inject under the skin before each meal 2 times daily per sliding scale:100-200 - 4 [id number] - 6 [id number] 8 -163 - 10 or higher - 12 units, Reported on 02/08/2025 omeprazole (PRILOSEC) 40 MG capsuleIndications :Esophagitis Take 1 capsule (40 mg total) by mouth daily. 90 capsule 2 07/06/19 Active Additional Information Patient taking differently:40 mg OralNightly, Reported on 02/08/2025 FREESTYLE SANDRA 3 PLUS SENSOR DeviIndications:Ty pe 2 diabetes mellitus with diabetic peripheral angiopathy without gangrene, with long-term current use of insulin 1 Units by Miscellaneous route every 14 (fourteen) days. 6 each 08/03/19 Active blood sugar diagnostic Strp stripsIndications: Type 2 diabetes mellitus with diabetic peripheral angiopathy without gangrene, with long-term current use of insulin 1 each by Miscellaneous route as needed (PRN when sensor fails). 100 strip 3 08/03/19 25 Active LANTUS U-100 INSULIN 100 unit/mL injection vialIndications:Ty pe 2 diabetes mellitus with diabetic peripheral angiopathy without gangrene, with long-term current use of insulin INJECT 24 UNITS IN THE AM AND 20 UNITS IN THE PM 30 mL 1 10/03/19 25 Active blood-glucose,rece iver,cont (FREESTYLE SANDRA 3 READER) Misc 1 Units by Miscellaneous route every 14 (fourteen) days. 1 each 10/27/19 25 Active atorvastatin (LIPITOR) 40 MG tabletIndications: Mixed hyperlipidemia TAKE 1 TABLET BY MOUTH EVERY DAY 90 tablet 3 12/22/19 25 Active XARELTO 20 mg TabIndications:Par oxysmal atrial fibrillation Take 1 tablet (20 mg total) by mouth daily. 90 tablet 3 01/26/20 25 Active lisinopril (PRINIVIL,ZESTRIL) 20 MG tabletIndications: Benign essential hypertension Take 1 tablet (20 mg total) by mouth 2 (two) times a day. 180 tablet 3 02/09/20 25 Active Active Problems Problem Noted Date Diagnosed Date [...] notes that his appetite is starting to excelsior picker and he is eating a lot [...] 05/02/2017 Overview (12/12/2023): Dr. 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 (After Hours Call/) 03/12/2025 Telephone [facility] [employer] [address] [employer] [address] [place] [address] Eri Gregory PA-C Results (After hours call) 02/22/2025 Orders Only [facility] [address] [place] [address] ProviderJames MD 02/20/2025 Telephone [facility] 40 [facility] [place] [address] Waylon Diaz MD Labs 02/11/2025 Telephone [facility] [address] [facility] [place] [address] Waylon Diaz MD MRI ordered 02/08/2025 4:30 PM EST Office Visit [facility] 40 [facility] [place] [place] [address] Waylon Diaz MD Need for prophylactic vaccination and inoculation against influenza (Primary Dx); Ataxia; Mixed stress and urge urinary incontinence; Frequency of micturition; Benign essential hypertension 02/06/2025 Telephone [facility] [address] [facility] [place] [address] Waylon Diaz MD concerns 01/31/2025 Telephone [facility] [address] [place] [address] Eli Guzman Appointment 01/29/2025 Telephone [facility] [address] [facility] [place] [address] Waylon Diaz MD Last office notes 01/25/2025 Orders Only [facility] [address] [facility] [place] [address] James Carlson MD 01/25/2025 Refill [facility] [address] [facility] [place] [address] Waylon Diaz MD Medication Refill 01/24/2025 [facility] 40 [facility] [place] [address] Waylon Diaz MD 12/28/2024 [facility] 40 [facility] [place] [address] Waylon Diaz MD [facility] meds 12/26/2024 1:12 PM EDT - 12/26/2024 11:59 PM EDT Hospital Encounter [facility] [address] [facility] [place] [address] Waylon Diaz MD Discharge Disposition: Home or Self Care 12/26/2024 11:30 AM EDT Office Visit [facility] [address] [facility] [place] [address] Waylon Diaz MD Type 2 diabetes mellitus with diabetic peripheral angiopathy without gangrene, with long-term current use of insulin (Primary Dx); Need for prophylactic vaccination and inoculation against influenza; Type 2 diabetes mellitus with both eyes affected by moderate nonproliferative retinopathy and macular edema, with long-term current use of insulin; Nocturia; Anemia, unspecified type 12/21/2024 Refill [facility] [address] [facility] [address] [place] [id number] Waylon Diaz MD Medication Refill from Last [...] to quit: 1989 Cigars Smokeless Tobacco: Never Tobacco Cessation:Ready to Q [...] Description 04/22/2025 11:00 AM EST Office Visit [facility] [address] [place] [address] Waylon Diaz MD [address] [place] [address] [email or web address] Health Maintenance Due Date Last Done Comments [...] Name Priority Date/Time Associated Diagnosis Comments OUTSIDE LAB Routine 02/19/2025 12:56 PM EST OUTSIDE LAB Routine 02/19/2025 8:34 AM EST MRI BRAIN Routine 02/08/2025 5:49 PM EST [...] Relevant to Health Maintenance Results * Outside Lab (Non-MGB) (02/19/2025 12:56 PM EST) Only the most recent of2 resultswithin the time period is included. Historical Provider LAB BLOOD BKR ORDERABLES Final Result * Outside Imaging Report Only (01/25/2025 3:46 PM EDT) Historical Provider IMG XR CHEST Final Res ult * (ABNORMAL) Urinalysis w/reflex Urine Culture (12/26/2024 1:26 PM EDT) COLOR Yellow Yellow [facility] CLARITY Clear [facility] GLUCOSE 3+(A) Negative [facility] BILI Negative Negative [facility] KETONES Negative Negative [facility] SPECIFIC GRAVITY 1.015 1.005 - 1.030 [facility] BLOOD Trace(A) Negative [facility] PH 6.0 5.0 - 8.0 [facility] Protein-UA Negative Negative [facility] NITRITE Negative Negative [facility] Leukocyte esterase, ur Negative Negative [facility] Urine (Urine) 12/26/2024 1:2 6 PM EDT 12/26/2024 1:28 PM EDT Waylon Diaz MD LAB URINE ORDERABLES Final Re sult [facility] [address] [place] [address] * (ABNORMAL) Microalbumin/creatinine ratio, random urine (12/26/2024 1:26 PM EDT) URINE MICROALBUMIN 1.8 0 - 2.3 mg/dL [facility] URINE CREATININE 34 mg/dL [facility] MICROALB/CRE RATIO 52.9(H) 0 - 20 mg/g Cre [facility] Urine (Urine) 12/26/2024 1:2 6 PM EDT 12/26/2024 1:28 PM EDT us Waylon Diaz MD LAB URINE ORDERABLES Final Re sult Performing Organization Address City/[facility]/ZIP Co de Phone Number [address] [address] * (ABNORMAL) Comprehensive metabolic panel (12/26/2024 1:11 PM EDT) SODIUM 135 133 - 146 mmol/L [facility] POTASSIUM 4.5 3.3 - 5.1 mmol/L [facility] CHLORIDE 98 96 - 108 mmol/L [facility] CO2 23 21 - 35 mmol/L [facility] BUN 17 6 - 19 mg/dL [facility] CREATININE 0.80 0.5 - 1.5 mg/dL [facility] GLUCOSE 412(H) 70 - 99 mg/dL [facility] ALBUMIN 4.4 3.9 - 4.8 g/dL [facility] TOTAL PROTEIN 7.3 6.5 - 8.0 g/dL [facility] CALCIUM 10.0 8.4 - 10.3 mg/dL [facility] ALKALINE PHOSPHATASE 102 39 - 117 U/L [facility] TOTAL BILIRUBIN 0.4 0.0 - 1.2 mg/dL [facility] AST 15 0 - 37 U/L [facility] ALT 11 0 - 40 U/L [facility] GLOBULIN 2.9 1 - 4.8 g/dL [facility] EGFR 87 >59 mL/min/1.7 3m2 [facility] Comment:Estimated glomerular filtration rate calculated using the CKD-EPI refit equation. ANION GAP 19 10 - 20 mmol/L [facility] Blood 12/26/2024 1:11 PM EDT 12/26/2024 1:17 PM EDT us Waylon Diaz MD LAB BLOOD BKR ORDERABLES Yessica l Result [address] [address] * Iron and iron binding capacity (12/26/2024 1:11 PM EDT) IRON 76 45 - 160 ug/dL [facility] IRON BINDING CAPACITY 254 228 - 428 ug/dL [facility] TRANSFERRIN SATURAT. 30 20 - 55 % [facility] Blood 12/26/2024 1:11 PM EDT 12/26/2024 1:17 PM EDT us Waylon Diaz MD LAB BLOOD BKR ORDERABLES Yessica winter Result Performing Organization Address [facility] Co de Phone Number [address] [address] * (ABNORMAL) CBC and differential (12/26/2024 1:11 PM EDT) WBC 7.86 4.00 - 11.00 K/uL [facility] RBC 4.04(L) 4.50 - 5.90 M/uL [facility] HGB 12.3(L) 13.5 - 17.5 g/dL [facility] HCT 37.5(L) 41.0 - 53.0 % [facility] PLT 316 150 - 450 K/uL [facility] MCV 92.8 80.0 - 100.0 fL [facility] MCH 30.4 27.0 - 31.0 pg [facility] MCHC 32.8 32.0 - 36.0 g/dL [facility] RDW 13.2 11.5 - 14.5 % [facility] MPV 9.8 8.4 - 12.0 fL [facility] NRBC 0.00 0.00 /100 WBCs [facility] ABSOLUTE NRBC 0.00 0.00 K/uL [facility] DIFF METHOD Auto [facility] NEUTS 63.4 48.0 - 76.0 % [facility] LYMPHS 20.7 18.0 - 41.0 % [facility] MONOS 12.0(H) 4.0 - 11.0 % [facility] EOS 2.9 0.0 - 5.0 % [facility] BASOS 0.4 0.0 - 1.5 % [facility] Granulocytes, immature (%) 0.6 0.0 - 0.9 % [facility] ABSOLUTE NEUTS 4.98 1.92 - 7.60 K/uL [facility] ABSOLUTE LYMPHS 1.63 0.72 - 4.10 K/uL [facility] ABSOLUTE MONOS 0.94 0.16 - 1.10 K/uL [facility] ABSOLUTE EOS 0.23 0.00 - 0.50 K/uL [facility] ABSOLUTE BASOS 0.03 0.00 - 0.15 K/uL [facility] Granulocytes, immature 0.05 0.00 - 0.09 K/uL [facility] Blood 12/26/2024 1:11 PM EDT 12/26/2024 1:17 PM EDT Waylon Diaz MD LAB BLOOD BKR ORDERABLES Yessica l Result [address] [address] * (ABNORMAL) Hemoglobin A1c (12/26/2024 1:11 PM EDT) HEMOGLOBIN A1C 10.5(H) 4.3 - 5.8 % [facility] Blood 12/26/2024 1:11 PM EDT 12/26/2024 1:17 PM EDT Waylon Diaz MD LAB BLOOD BKR ORDERABLES Yessica l Result [address] [address] * Folate (12/26/2024 1:11 PM EDT) FOLIC ACID 15.0 4.2 - 19.9 ng/mL [facility] Blood 12/26/2024 1:11 PM EDT 12/26/2024 1:17 PM EDT us Waylon Diaz MD LAB BLOOD BKR ORDERABLES Yessica l Result [address] [address] * Ferritin (12/26/2024 1:11 PM EDT) FERRITIN 169 30 - 400 ug/L [facility] Blood 12/26/2024 1:11 PM EDT 12/26/2024 1:17 PM EDT Waylon Diaz MD LAB BLOOD BKR ORDERABLES Yessica l Result Performing Organization Address [facility]/ZIP Co de Phone Number [address] [address] * Vitamin B12 (12/26/2024 1:11 PM EDT) VITAMIN B12 568 232 - 1,245 pg/mL [facility] Blood 12/26/2024 1:11 PM EDT 12/26/2024 1:17 PM EDT us Waylon Diaz MD LAB BLOOD BKR ORDERABLES Yessica l Result Performing Organization Address [facility] Co de Phone Number [address] [address] * (ABNORMAL) Lipid panel (12/26/2024 1:11 PM EDT) HDL 57 mg/dL [facility] Comment: Interpretation <40 mg/dL: Low HDL cholesterol (major risk factor for CHD) Greater than or equal to 60 mg/dL: High HDL cholesterol ( negative risk factor for CHD) HDL - cholesterol is affected by a number of factors, e.g. smoking, excerise, hormones, sex and age. CHOLESTEROL 133 0 - 240 mg/dL [facility] TRIGLYCERIDES 93 30 - 160 mg/dL [facility] LDL 57 50 - 129 mg/dL [facility] Comment: LDL levels in terms of risk for coronary heart disease: <100 mg/dL: Optimal 100-129 mg/dL: Near or above optimal 130-159 mg/dL: Borderline high 160-189 mg/dL: High >190 mg/dL: Very High CARDIAC RISK RATIO 2.3(L) 3.4 - 5.0 C [facility] Blood 12/26/2024 1:11 PM EDT 12/26/2024 1:17 PM EDT Waylon Diaz MD LAB BLOOD BKR ORDERABLES Yessica l Result [address] [address] * TSH with reflex (07/05/2024 10:43 AM EDT) TSH 1.73 0.27 - 4.20 uIU/mL [facility] Blood 07/05/2024 10:4 3 AM EDT 07/05/2024 10:47 AM EDT Waylon Diaz MD LAB BLOOD BKR ORDERABLES Yessica l Result Performing Organization Address [facility] Co de Phone Number [address] [address] * DIABETES EYE EXAM FOR RESULT ENTRY ONLY (06/27/2024 2:40 PM EDT) Historical Provider HEALTH MAINTENANCE Final Result from Last 3 Months or Most Recently Relevant to Health [place] [address] MEDICARE PART A & B [employer] [place] [address] MEDICARE PART A & B [employer] MEDEX [facility]PP[facility] [place] [address] MEDICARE PART A & B [employer] [place] [address] [place] [address] MEDICARE PART A & B [employer] [place] [address] MEDICARE PART A & B [employer] [place] [address] MEDICARE PART A & B [employer] SUPPLEMENT MEDICARE PART A & B [employer] [place] [id number] MEDICARE PART A & B [employer] [place] [address] MEDICARE PART A & B [employer] MEDEX SUPPLEMENT Care Teams Layer Off Relationship Specialty Start Date End Date Waylon Diaz MD [address] [place] [address] [email or web address] PCP - General Internal Medicine 03/15/17 Waylon Diaz MD [address] [place] [address] [email or web address] Insurance Assigned Provider 07/02/23 Kimani Sarabia MD [address] [place] [address] Ophthalmology 09/13/19 Ashley Ortez MD [address] [place] [address] Cardiology 08/08/20 Shelley Xavier DPM [address] [place] [address] Podiatry 08/08/20 Additional Source Comments The information contained in this document represents components of the legal health record. It is not the complete legal health record.[facility]
--- OUTSIDE RECORDS SUMMARY | 2025-03-12 20:16 | XMS_ITS | Encounter Summary ---
Author Organization [facility] Address [address] [place] [address] Phone Care Team Providers Care Dough Molder Hand Name Role Phone Waylon Diaz MD Unavailable [phone] Waylon Diaz MD Primary Care Provider [phone] Kimani Sarabia MD Unavailable [phone] Ashley Ortez MD Unavailable [phone] Shelley Xavier DPM Unavailable [phone] Encounter Details Date Type Department Care Team (Late st Contact Info) Description 02/22/2025 Orders Only [facility] [address] [facility] [place] [address] Provider, MD James [address] [place] [address] Social History Tobacco Use Types Packs/Day Years [...] Visit [facility] [address] [place] [address] Waylon Diaz MD [address] [place] [address] [email or web address] documented as of this encounter Procedures Procedure Name Priority Date/Time Associated Diagnosis Comments OUTSIDE LAB Routine 02/19/2025 12:56 PM EST OUTSIDE LAB Routine 02/19/2025 8:34 AM EST documented in this encounter Results * Outside Lab (Non-MGB) (02/19/2025 12:56 PM EST) Historical Provider LAB BLOOD BKR ORDERABLES Final Result * Outside Lab (Non-MGB) (02/19/2025 8:34 AM EST) Historical Provider LAB BLOOD BKR ORDERABLES Final Result documented in this encounter Visit Diagnoses Not on filedocumented in this encounter Additional Health Concerns Assessment Noted Time PHQ-2 Depression Total Score: 0 07/06/19 25 9:03 AM EDT documented as of this encounter Care Teams Dough Molder Hand Relationship Specialty Start Date End Date Waylon Diaz MD [address] [place] [address] [email or web address] PCP - General Internal Medicine 03/15/17 Waylon Diaz MD [address] [place] [address] [email or web address] Insurance Assigned Provider 07/02/23 Kimani Sarabia MD [address] [place] [address] Ophthalmology 09/13/19 Ashley Ortez MD [address] [place] [address] [email or web address] Cardiology 08/08/20 Shelley Xavier DPM [address] [place] [address] Podiatry 08/08/20 documented as of this encounter Additional Source Comments The information contained in this document represents components of the legal health record. It is not the complete legal health record.[facility]
--- OUTSIDE RECORDS SUMMARY | 2025-03-12 20:16 | XMS_ITS | Patient Health Record ---
[facility] cedric [facility] Address [address] [place] [address] Care Team Providers Care Bottom Painter Name Role Phone Waylon Diaz MD Primary Care Provider Abiola Shelley Morton Unavailable [phone] Allergies No Known Allergies Results Component Value [...] Problem Acquired hammer toe of right foot (6137819549789164) Other hammer toe(s) (acquired), right foot (M20.41) Active confirmed Problem Acquired hammer toe of left foot (6037987538479044) Other hammer toe(s) (acquired), left foot (M20.42) Active confirmed Problem Plantar wart (96502447) Plantar wart (B07.0) Active confirmed Problem Polyneuropathy due to type 2 diabetes mellitus (571412624) Type 2 diabetes mellitus with diabetic polyneuropathy (E11.42) Active confirmed Problem Intermittent claudication (46567881) Intermittent claudication (I73.9) Active confirmed Problem Bilateral atherosclerosis of arteries of lower limbs (disorder) (46835525147392242 ) Atherosclerosis of absentee-shawnee artery of both lower extremities, with unspecified presence of clinical manifestation (I70.203) Active confirmed Q7(A), Q8(2B), Q9(1B,2 C) Vital Signs Blood pressure diastolic 80 mm Hg 12/31/2024 Height 6 ft 0 in in 12/31/2024 Blood pressure systolic 120 mm Hg 12/31/2024 Weight 170 lbs 12/31/2024 BMI 23.05 kg/m2 12/31/2024 Procedures Procedure Date Ordered Date Performed Result Body Sit e 84087-HEUAUPF NAIL, 6 OR MORE 05/10/2024 N/A 72815-Yeem Destruction, 1-14 05/10/2024 N/A 23092-Xvxmwgnw Plate 05/10/2024 N/A 58152-DLNV SKIN LESIONS, OVER 4 05/10/2024 N/A 28336-BOWBMWF NAIL, 6 OR MORE 08/30/2024 N/A 75842-Azor Destruction, 1-14 08/30/2024 N/A 21357-LCMX SKIN LESIONS, OVER 4 08/30/2024 N/A 28234-XCLLASD NAIL, 6 OR MORE 12/31/2024 N/A 06870-OBUU SKIN LESIONS, OVER 4 12/31/2024 N/A Encounters Encounter Location Date Provider Diagnosis [address] [address] 05/10/2024 Shelley Black Atherosclerosis of absentee-shawnee artery of both lower extremities, with unspecified presence of clinical manifestation I70.203 ; Other hammer toe(s) (acquired), right foot M20.41 ; Intermittent claudication I73.9 ; Tinea unguium B35.1 ; Type 2 diabetes mellitus with diabetic polyneuropathy E11.42 ; Plantar wart B07.0 ; Pain in right foot M79.671 ; Ingrown nail L60.0 and Other hammer toe(s) (acquired), left foot M20.[address] [address] 08/30/2024 Shelley Black Atherosclerosis of absentee-shawnee artery of both lower extremities, with unspecified presence of clinical manifestation I70.203 ; Other hammer toe(s) (acquired), right foot M20.41 ; Intermittent claudication I73.9 ; Tinea unguium B35.1 ; Type 2 diabetes mellitus with diabetic polyneuropathy E11.42 ; Plantar wart B07.0 ; Pain in right foot M79.671 and Other hammer toe(s) (acquired), left foot M20.[address] [address] 12/31/2024 Shelley Black Atherosclerosis of absentee-shawnee artery of both lower extremities, with unspecified presence of clinical manifestation I70.203 ; Type 2 diabetes mellitus with diabetic polyneuropathy E11.42 ; Tinea unguium B35.1 and Plantar wart B07.[address] [address] 12/17/2024 Shelley Black [address] [address] 12/31/2024 Shelley Xavier Assessments Encounter Date Diagnosis (ICD Code) Assessment Notes Treatment Notes Treatment Clinical Notes Section Notes 05/10/2024 Other hammer toe(s) (acquired), right foot (ICD-10 - M20.41) Patient Educated with: DIABETIC FOOT CARE INSTRUCTIONS. pdf (DIABETIC FOOT CARE INSTRUCTIONS. pdf) 05/10/2024 Atherosclerosis of absentee-shawnee artery of both lower extremities, with unspecified presence of clinical manifestation (ICD-10 - I70.203) Q7(A), Q8(2B), Q9(1B,2C) 08/30/2024 Other hammer toe(s) (acquired), right foot (ICD-10 - M20.41) 08/30/2024 Atherosclerosis of absentee-shawnee artery of both lower extremities, with unspecified presence of clinical manifestation (ICD-10 - I70.203) Q7(A), Q8(2B), Q9(1B,2C) 12/31/2024 Type 2 diabetes mellitus with diabetic polyneuropathy (ICD-10 - E11.42) 12/31/2024 Atherosclerosis of absentee-shawnee artery of both lower extremities, with unspecified [...] Test Name Order Date Hemoglobin A1c 07/20/2018 83473-JSFGAJD NAIL, 6 OR MORE 12/03/2010 50776-JVBYBDA NAIL, 6 OR MORE 03/08/2011 54104-DPZWEVH NAIL, 6 OR MORE 06/09/2011 58916-CQNBSTO NAIL, 6 OR MORE 09/09/2011 07529-VPNSSBS NAIL, 6 OR MORE 12/13/2011 05709-DUFKVAD NAIL, 6 OR MORE 03/13/2012 66269-QDUTLNI NAIL, 6 OR MORE 06/12/2012 94350-WJCYGCX NAIL, 6 OR MORE 12/18/2012 58934-ZHYQUTG NAIL, 6 OR MORE 04/02/2013 45529-IQMZFUM NAIL, 6 OR MORE 09/13/2012 91159-PRNHQGM NAIL, 6 OR MORE 06/25/2013 50419-AVVNOKT NAIL, 6 OR MORE 10/01/2013 88929-ASAXWSY NAIL, 6 OR MORE 12/31/2013 86448-VIRWOAR NAIL, 6 OR MORE 04/10/2014 92979-GIXJWVZ NAIL, 6 OR MORE 07/08/2014 23107-HCFQWVQ NAIL, 6 OR MORE 04/22/2022 26251-KVNRESI NAIL, 6 OR MORE 07/29/2022 92884-FZEALVP NAIL, 6 OR MORE 01/06/2023 79878-YSCKNYV NAIL, 6 OR MORE 04/21/2023 12396-AARZTPI NAIL, 6 OR MORE 07/25/2023 16036-LKQQOLH NAIL, 6 OR MORE 10/20/2023 77060-VRCVHDV NAIL, 6 OR MORE 02/06/2024 26690-JZJRBOY NAIL, 6 OR MORE 05/10/2024 43343-CKISOLF NAIL, 6 OR MORE 08/30/2024 08219-ELRAUAG NAIL, 6 OR MORE 12/31/2024 94535-YGPAMRJ NAIL, -12/28/2021 43263-CTHOGUO NAIL, 04-0106/22/2021 34504-TZADSZM NAIL, 04-0109/21/2021 57306-LYLNUNR NAIL, 04-0104/20/2018 19347-DUDTNBS NAIL, 04-0107/20/2018 52420-WUOMTRA NAIL, 04-0111/02/2018 71499-TTHRLWS NAIL, 04-0102/08/2019 86207-PENECQL NAIL, 04-0105/17/2019 03669-RQKGRIR NAIL, 04-0112/24/2019 30948-MFMSOTN NAIL, 04-0109/13/2019 59521-HFGNVZN NAIL, 04-0103/31/2020 59429-XTXPSDO NAIL, 04-0107/16/2020 01978-GQENNHG NAIL, 04-0110/16/2020 51209-MEYCPLA NAIL, 04-0102/16/2021 32566-FUKLQXY NAIL, 04-0110/14/2014 84905-KGHZRPG NAIL, 04-0104/17/2015 68215-IQDEKPP NAIL, 04-0107/17/2015 28298-WJHEOFU NAIL, 04-0101/15/2015 96272-UMTRULU NAIL, 04-0110/20/2015 32614-WMNITGU NAIL, 04-0101/22/2016 05635-NNVYQZG NAIL, 04-0104/22/2016 57973-NQDKFGJ NAIL, 04-0107/19/2016 15901-CKRHGLY NAIL, 04-0110/15/2016 55414-FRRCQXD NAIL, 04-0101/10/2017 08090-LBNGUAC NAIL, 04-0104/18/2017 41712-GYBSXUG NAIL, 04-0107/18/2017 64114-WEHFLZX NAIL, 04-0110/17/2017 50479-QWKDQCH NAIL, 04-0101/16/2018 23676-Niib Destruction, 04-1012/24/2019 60407-Anlx Destruction, 04-1007/29/2022 60240-Udwx Destruction, 04-1001/06/2023 23980-Twzy Destruction, 04-1008/30/2024 26331-Srmq Destruction, 1-14 02/06/2024 79960-Meve Destruction, 1-14 05/10/2024 60402-Ptej Destruction, 1-14 07/25/2023 59436-Rfeo Destruction, 1-14 10/20/2023 49800-Zgjatwoz Plate 05/10/2024 41157-Qufosedh Plate 02/16/2021 20507-Znzxuylp Plate 02/08/2019 50382-Jlyredlz Plate 04/20/2018 78720-Qbvxmjau Plate 07/18/2017 27502-Hkusprfj Plate 06/25/2013 97783-Vufsjcka Plate 01/15/2015 36596-Bkogdbvm Plate 10/14/2014 23399-Qbygizru Plate 07/08/2014 62448-Vftbneox Plate 04/10/2014 69081-Otyquacq Plate 12/31/2013 55269-Kntetdju Plate 10/01/2013 29600-Zqpnavoo Plate 09/13/2012 36213-Fqrndcnw Plate 12/18/2012 98423-Nkqdlegy Plate 04/02/2013 16607-Zxlqadvr Plate 06/12/2012 91604-Nrksebpk Plate 03/13/2012 99153-Twrgsnkj Plate 12/13/2011 69695-Toistkvn Plate 09/09/2011 77127- Debride <25 sq cm 01/22/2016 77140 I&D ABSCESS- SIMPLE,SINGLE 024 85917-KLHX SKIN LESIONS, OVER 4 01/07/20 23 42956-NXUV SKIN LESIONS, OVER 4 07/25/19 24 34257-LEQS SKIN LESIONS, OVER 4 04/21/19 24 72261-MSNF SKIN LESIONS, OVER 4 04/22/19 23 79888-CXHC SKIN LESIONS, OVER 4 07/30/19 07547-GXMB SKIN LESIONS, OVER 4 05/10/19 56078-MTDO SKIN LESIONS, OVER 4 02/06/20 24 41359-KCKS SKIN LESIONS, OVER 4 10/20/19 24 09666-MOPW SKIN LESIONS, OVER 4 08/31/19 61488-NJMT SKIN LESIONS, OVER 4 01/01/20 74639-BYUZ SKIN LESIONS, 2 TO 4 12/29/19 08335-EANE SKIN LESIONS, 2 TO 4 09/22/19 29924-EXGN SKIN LESIONS, 2 TO 4 07/21/19 19 08011-PPJO SKIN LESIONS, 2 TO 4 11/03/19 19 78513-VZYV SKIN LESIONS, 2 TO 4 02/09/20 19 23760-UKBX SKIN LESIONS, 2 TO 4 09/13/19 20 64123-HICQ SKIN LESIONS, 2 TO 4 05/17/19 32529-NCNF SKIN LESIONS, 2 TO 4 06/23/19 22 83858-MWWR SKIN LESIONS, 2 TO 4 02/17/20 47867-EEYH SKIN LESIONS, 2 TO 4 10/17/19 49496-MVGY SKIN LESIONS, 2 TO 4 03/31/19 43090-UHQN SKIN LESIONS, 2 TO 4 07/17/19 21 38646-MKUR SKIN LESIONS, 2 TO 4 12/24/19 20 25448-AWRO SKIN LESIONS, 2 TO 4 01/22/20 16 23180-EJCE SKIN LESIONS, 2 TO 4 07/20/19 17 68564-AMXH SKIN LESIONS, 2 TO 4 04/22/19 17 25375-NDQV SKIN LESIONS, 2 TO 4 10/20/19 16 36109-CTSR SKIN LESIONS, 2 TO 4 04/17/19 16 42758-XJJD SKIN LESIONS, 2 TO 4 07/17/19 16 47830-BMUM SKIN LESIONS, 2 TO 4 10/18/19 18 31943-NKTF SKIN LESIONS, 2 TO 4 04/20/19 19 40445-RSAR SKIN LESIONS, 2 TO 4 01/17/20 18 01483-SVHB SKIN LESIONS, 2 TO 4 07/19/19 18 47333-LXPV SKIN LESIONS, 2 TO 4 04/18/19 18 92064-QBOT SKIN LESIONS, 2 TO 4 01/11/20 17 12164-KPAB SKIN LESIONS, 2 TO 4 10/16/19 17 52971-NYDS SKIN LESIONS, 2 TO 4 12/13/19 12 16452-ZNQS SKIN LESIONS, 2 TO 4 09/09/19 12 60203-VQCA SKIN LESIONS, 2 TO 4 03/13/20 12 91614-FRBJ SKIN LESIONS, 2 TO 4 04/02/19 14 35297-DUTC SKIN LESIONS, 2 TO 4 06/26/19 14 36543-DKPC SKIN LESIONS, 2 TO 4 10/02/19 14 42692-YCMD SKIN LESIONS, 2 TO 4 01/01/20 14 26986-PNEA SKIN LESIONS, 2 TO 4 04/10/19 15 35572-VWKM SKIN LESIONS, 2 TO 4 07/09/19 15 55749-UWQI SKIN LESIONS, 2 TO 4 10/15/19 15 84496-PRIZ SKIN LESIONS, 2 TO 4 01/16/20 15 F2253-HHSZAWLM DYSTROPHIC NAILS ANY # Q1768-WBJRDCDN DYSTROPHIC NAILS ANY # J6775-IBZBPQUW DYSTROPHIC NAILS ANY # B2065-DMRNEPBI DYSTROPHIC NAILS ANY # Q3557-PNPAXSEE DYSTROPHIC NAILS ANY # A8741-MLYGURNK DYSTROPHIC NAILS ANY # D9222-IGZPHQAK DYSTROPHIC NAILS ANY # F4085-LEXYMKRL DYSTROPHIC NAILS ANY # C8058-LWHZHDYR DYSTROPHIC NAILS ANY # K8624-TPVAMCAO DYSTROPHIC NAILS ANY # D8937-VJVMRIXC DYSTROPHIC NAILS ANY # F9617-DIGPWRZB DYSTROPHIC NAILS ANY # I2332-QSFIYXZX DYSTROPHIC NAILS ANY # X9414-GWCVYFPF DYSTROPHIC NAILS ANY # Y4981-ONQIHLGG DYSTROPHIC NAILS ANY # Z0936-AWDLLZKX DYSTROPHIC NAILS ANY # H6053-OTARYDFC DYSTROPHIC NAILS ANY # L3830-ZINXFOEW DYSTROPHIC NAILS ANY # O0570-RBDQCRDQ DYSTROPHIC NAILS ANY # L7771-HKWYNCZI DYSTROPHIC NAILS ANY # Q1801-XSQKIVQF DYSTROPHIC NAILS ANY # W9319-XKOAWQLR DYSTROPHIC NAILS ANY # P8156-ONIOGWEV DYSTROPHIC NAILS ANY # R7892-XNVEFEHE DYSTROPHIC NAILS ANY # G2273-DSSTNFTQ DYSTROPHIC NAILS ANY # 70647,C5984-SRZ TENDON SHEATH/LIGAMENT 0 05/19/202358795,G4527-QVD TENDON SHEATH/LIGAMENT 0 08/24/2018 Next Appt Details Provider Name:Shelley Xavier , 04/22/2025 10:30:00 AM, [address] [place] [address], [place], [address], Insurance Providers Payer Name Payer Address Payer Phone Subscriber Number Group Number Insured Name Patient Relationship to Insured Coverage Start Date Coverage End Date Medicare National Govt S[employer] [address] [place] [address] [id number] Elan Patton Self - patient is the insured [employer] Blue [employer] [address] [place] [address] [id number] Elan Patton Self - patient is the insured 2 Medical (General) History Medical History History ICD Code mumps diabetic type ll chicken pox Retinopathy Surgical History Surgery Date(Month/Year) leg surgery [facility] SX Both Eyes 11/2016 LT Ear [facility] 06/2017 Leg surgery- (Right) Stent Placement @ B 08/2017 Right eye 12/2018
--- OUTSIDE RECORDS SUMMARY | 2025-03-12 20:16 | XMS_ITS | Encounter Summary ---
Author Organization [facility] Address [address] [place] [address] Phone Care Team Providers Care Groundman/Lineman Name Role Phone Waylon Diaz MD Unavailable [phone] Waylon Diaz MD Primary Care Provider [phone] Kimani Sarabia MD Unavailable Ashley Ortez MD Unavailable [phone] Shelley Xavier DPM Unavailable [phone] Reason for Visit * Reason Onset Date Comments Results 03/12/2025 After hours call Encounter Details Date Type Department Care Team (Late Contact Info) Description 03/12/2025 Telephone [facility] Primary [facility] [employer]ol[employer] Management Technician Program [facility] [address] [place] [address] Eri Gregory PA-C [address] [address] 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 Patient spoke with colleague and advised to go to ED, please see their note for more details. Disposition: Emergency Room (ER) documented in this encounter Plan of Treatment Upcoming Encounters Date Type Department Care Team (Late st Contact Info) Description 04/22/2025 11:00 AM EST Office Visit [facility] [address] [place] [address] Waylon Diaz MD [address] [place] [address] [email or web address] documented as of this encounter Visit Diagnoses Not on filedocumented in this encounter Additional Health Concerns Assessment Noted Time PHQ-2 Depression Total Score: 0 07/06/19 25 9:03 AM EDT documented as of this encounter Care Teams Groundman/Lineman Relationship Specialty Start Date End Date Waylon Diaz MD [address] [place] [address] [email or web address] PCP - General Internal Medicine 03/15/17 Waylon Diaz MD [address] [place] [address] [email or web address] Insurance Assigned Provider 07/02/23 Kimani Sarabia MD [address] [place] [address] Ophthalmology 09/13/19 Ashley Ortez MD [address] [place] [address] [email or web address] Cardiology 08/08/20 Shelley Xavier DPM [address] [place] [address] Podiatry 08/08/20 documented as of this encounter Additional Source Comments The information contained in this document represents components of the legal health record. It is not the complete legal health record.[facility]
--- OUTSIDE RECORDS SUMMARY | 2025-03-12 20:16 | XMS_ITS | Patient Health Record ---
Author Organization [facility] Address [address] [place] [address] Care Team Providers Care Fish Worm Grower Name Role Phone Waylon Diaz MD Primary Care Provider Blair Nielson Jr Unavailable [phone] Allergies No Known Allergies Results Component Value Reference Range Flag Notes Prothrombin Time INR Reviewed date:04/23/2024 04:11:29 PM Interpretation: Performing Lab:[facility], [address] [place] [id number] Notes/Report: Prothrombin Time 13.9 10.9-12.4 SEC H [...] (Not yet reviewed by provider) Interpretation: Performing Lab:[address] [id number] Notes/Report: Reason For Referral No Information Medications [...] Status Risk Notes Problem Colon cancer screening (799579146) Colon cancer screening (Z12.11) Active confirmed Problem Anorexia (00595098) Anorexia (R63.0) Active confirmed Problem Helicobacter pylori gastrointestinal tract infection (113757836) H. pylori infection (B96.81) Active confirmed Problem Erosive esophagitis (66260624) Erosive esophagitis (K22.10) Active confirmed Problem Duodenal ulcer (93348076) Duodenal ulcer (K26.9) Active confirmed Vital Signs Blood pressure diastolic 77 mm Hg 09/27/2024 Height 72 in 09/27/2024 Blood pressure systolic 111 mm Hg 09/27/2024 Weight 185 lbs 09/27/2024 BMI 25.09 kg/m2 09/27/2024 Encounters Encounter Location Date Provider Diagnosis [facility] [address] [place] [address] 09/27/2024 Blair Espinoza Jr Duodenal ulcer K26.9 ; H. pylori infection B96.81 and Erosive esophagitis K22.10 [facility] [address] [place] [address] [place] [phone] 04/30/2024 Blair Espinoza Jr [facility] [address] [place] [address] 11/22/2024 Blair Espinoza Jr Assessments Encounter Date [...] Name:Blair rodriguez Jr, 04/01/2025 10:40:00 AM, [address], [address], [place], [address], Insurance Providers Payer Name Payer Address Payer Phone Subscriber Number Group Number Insured Name Patient Relationship to Insured Coverage Start Date Coverage End Date MEDICARE OF [facility] [address] [place] [address] [phone] [id number] VIDAL PEREZ Self - patient is the insured 5 MEDEX ATTN CLAIMS [address] [place] [address] [id number] VIDAL PEREZ Self - patient is the insured Medical (General) History Medical History History ICD Code hypertension diabetes mellitus II peripheral vascular disease elevated cholesterol Surgical History Surgery Date(Month/Year) stent placement-right leg hernia repair cataract removal
== END 2025-03-12 16:42 | disposition home or self-care (01) ==
LOC: HO.MRI 16:41
PROVIDERS: PCP Internal Medicine; Visit Provider Internal Medicine
DX: N39.46 Mixed incontinence (principal); R27.0 Ataxia, unspecified
CPT/HCPCS: 70551

== ENCOUNTER → 2025-03-12 17:20 | Outpatient (BNV) | payer MEDICARE, SELFPAY | PROVIDERS: PCP Internal Medicine; Visit Provider Radiology Diagnostic Radiology | DX: I63.81 Other cerebral infarction due to occlusion or stenosis of small artery (principal) | CPT/HCPCS: 70551 ==